=== PATIENT | female | born 1985 | race Caucasian/White ===

== ENCOUNTER 2019-07-01 15:24 | Outpatient (REF) | payer BC, SELFPAY | END 2019-07-01 15:44 | LOC: NCHCN 15:24 | PROVIDERS: PCP Nurse Practitioner Family; Visit Provider Nurse Practitioner Family | DX: N89.8 Other specified noninflammatory disorders of vagina (principal) | CPT/HCPCS: 87491; 87591; 87480; 87510; 87660 ==

== ENCOUNTER 2019-07-02 11:18 | Outpatient (REF) | payer BC, SELFPAY ==
[2019-07-02 20:24] LABS: Abs Immature Grans 0.01 k/cumm (0.0-0.09); Absolute Basophil Count 0.01 k/cumm (0.0-0.2); Absolute Eosinophil Count 0.07 k/cumm (0.0-0.7); Absolute Lymphocyte Count 2.12 k/cumm (1.2-3.4); Absolute Monocyte Count 0.36 k/cumm (0.11-0.7); Absolute Neutrophil Count 3.07 k/cumm (1.2-6.7); Basophils % 0.2; Eosinophils % 1.2; HCT 36.4 % (36.0-46.0); HGB 11.8 g/dL (12.0-15.5); Immature Grans % 0.2 %; Lymphocytes % 37.6; Mean Corp. HGB Concentration 32.4 g/dL (32.0-36.0); Mean Corpuscular Hemoglobin 26.5 pg (27.0-33.0); Mean Corpuscular Volume 81.6 fL (80-95); Mean Platelet Volume 10.5 fL (8.0-11.0); Monocytes % 6.4; Neutrophils % 54.4; Platelet Count 249 x1000/uL (130-400); RBC 4.46 m/cumm (4.00-5.20); RBC Distribution Width 13.6 % (11.7-14.6); White Blood Cell Count 5.64 k/cumm (4.4-10.8)
[2019-07-02 20:45] LABS: Anion Gap 8.7 mmol/L (3-11); BUN 7 mg/dL (7-18); CO2 29.3 mmol/L (21.0-32.0); CREATININE 0.55 mg/dL (0.55-1.02); Calcium 9.4 mg/dL (8.5-10.1); Chloride 104 mmol/L (98-107); Glucose 104 mg/dL (74-106); Sodium 142 mmol/L (136-145)
== END 2019-07-02 11:38 ==
LOC: NCHCN 11:18
PROVIDERS: PCP Nurse Practitioner Family; Visit Provider Nurse Practitioner Family
DX: N89.8 Other specified noninflammatory disorders of vagina (principal); R10.2 Pelvic and perineal pain
CPT/HCPCS: 80048; 85025

== ENCOUNTER 2019-07-04 19:13 | Emergency (ER) | payer BC, SELFPAY ==
[2019-07-04 19:15] VITALS: BP 160/69; PULSE 99; RESP 18; TEMP 37; O2SAT 99
--- NOTE | 2019-07-04 19:29 | ED.GENADUL_ITS ---
Discharge Plan Disposition Patient Disposition: HOME Condition: Good Discharge Details Chief Complaint: Nausea/Vomit/Diar Clinical Impression: Colitis Primary Care Provider: Verona Colindres ED Provider: Rolando Mascorro Home Meds and New Rx's Prescriptions: New ciprofloxacin HCl 500 mg tablet 500 mg PO BID 10 Days Qty: 20 RF: 0 metronidazole [Flagyl] 500 mg tablet 500 mg PO TID 10 Days Qty: 30 RF: 0 No Action fluticasone propionate [Flonase Allergy Relief] 50 mcg/actuation [place],Suspension 2 spray INTRANASAL PRN PRNRF: 0 Discharge Instructions Instructions: Colitis (ED) Additional Instructions: Your CT scan shows evidence of mild colitis which is likely a bacterial infe ction of your colon. Please take the antibiotic as directed. Please stick with an easy diet of applesauce, rice, bananas and oatmeal. Do not drink any alcohol while taking the antibiotic as this can cause a significant adverse reaction. Please take Tylenol up to 1000 mg 4 times a day as needed for pain. If you notice any worsening of your symptoms, or any new symptoms such as vomiting, diarrhea, fever, chills, shortness of breath, chest pain, numbness, weakness, or fainting , please return immediately to the emergency department for reevaluation. Please follow up with your primary care provider as soon as possible for reassessment and reevaluation. As always, it was a pleasure participating in your medical care today. Referrals: Verona Colindres [Primary Care Provider] - Medical Decision Making 34-year-old female no significant past medical history who presents today for evaluation of left lower quadrant pain for the last week, decreased bowel movements for the last 4 days aside for small amount of loose watery stool. Pain seems to be worsened with food. She does have some nausea but no vomiting. She denies fever or chills. No dysuria. No vaginal discharge. She did have a vaginal eval at her PCPs office the results of which were unremarkable with a negative bacterial vaginosis, trichomoniasis, and Izabella series. It appears that gonorrhea and chlamydia or canceled secondary to the improper specimen medium however I did discuss with the patient repeat testing and she states that she would like to hold off on this for now. Physical exam demonstrates minimal reproducible left lower quadrant tenderness, no guarding or rebound whatsoever. No right lower quadrant tenderness. No stool in the rectal vault. Differential includes higher constipation, diverticulitis, mild colitis. Discussed risks and benefits of imaging. We will get a CT scan for further assessment, labs, gently rehydrate and reassess. 8:44 PM Laboratory work-up is returned and is relatively unremarkable. No significant white count, potassium slightly low at 3.3. Lipase normal, urinalysis negative for infection. CT scan results per virtual radiology does show evidence of mild colitis in the sigmoid colon and rectum. No evidence of perforation or other abnormality. No gross blood on exam or on rectal exam. Will treat for bacterial colitis and give Cipro and Flagyl. We will correct potassium. Patient is able to tolerate p.o. and otherwise appears notably stable. Patient will be discharged home with close follow-up. Patient has no significant pain at this time. I have extensively reviewed the treatment plan and discharge instructions with the patient. I have addressed all patient concerns at this time. The patient was made aware of what symptoms to monitor for that would warrant a return to the emergency department. Discussed the plan with the patient, they demonstrate verbal understanding and agreement with our assessment and plan at this time. FINDINGS: Liver: Normal. No mass. Gallbladder and bile ducts: Normal. No calcified stones. No ductal dilation. Pancreas: Normal. No ductal dilation. Spleen: Normal. No splenomegaly. Adrenals: Normal. No mass. Kidneys and ureters: Normal. No hydronephrosis. Stomach and bowel: Thickening of the rivera of the sigmoid colon and rectum, which contain air-fluid levels, most likely representing colitis. No pneumatosis. No associated abscess. Appendix: A normal appendix is identified. Intraperitoneal space: No free air. Vasculature: Unremarkable. No abdominal aortic aneurysm. Lymph nodes: Unremarkable. No enlarged lymph nodes. Bladder: Unremarkable as visualized. Reproductive: Left ovarian corpus luteal cyst. Bones/joints: Unremarkable. No acute fracture. Soft tissues: Unremarkable. IMPRESSION: Thickening of the rivera of the sigmoid colon and rectum, which contain air-fluid levels, most likely representing colitis. No pneumatosis. No associated abscess. No free air. Thank you for allowing us to participate in the care of your patient. Dictated and Authenticated by: Quinton Case MD 07/04/2019 8:41 PM Eastern Time ([place] & [place]) HPI General Date/Time Provider Initiated Documentation: 07/04/19 19:15 . HPI Narrative: This is a pleasant 34-year-old female with no significant past medical history who presents today for evaluation of left lower quadrant abdominal pain. Patient states that for the last week she has had mild left lower quadrant abdominal pain. She was initially seen by her PCP, vaginal exam was performed studies were performed on this and this was unremarkable. Her pain is persisted, she has notable associated nausea. There does not seem to be any particular aggravating or relieving factor except for eating. She states that she has had no significant bowel movements over the last 4 days however she has had small amounts of stool leaking over the past 4 days. She denies any recent antibiotic use or foreign travel. She denies any vomiting, fever or chills. She denies any vaginal discharge or vaginal complaints. She denies any dysuria or hematuria. She has no other complaints at this time. No other modifying factors. No pain in the right lower quadrant, no flank pain. Related Data Home Medications Medication Instructions Recorded Confirmed ciprofloxacin HCl 500 mg PO BID 10 Days #20 tab 07/04/19 fluticasone propionate [Flonase 2 spray INTRANASAL PRN PRN 07/04/19 07/04/19 Allergy Relief] metronidazole [Flagyl] 500 mg PO TID 10 Days #30 tab 07/04/19 Previous Rx's Medication Instructions Recorded ciprofloxacin HCl 500 mg PO BID 10 Days #20 tab 07/04/19 metronidazole [Flagyl] 500 mg PO TID 10 Days #30 tab 07/04/19 Allergies Allergy/AdvReac Type Severity Reaction Status Date / Time No Known Allergies Allergy Unverified 07/04/19 19:24 General Stated Complaint: Nausea/Vomit/Diar TATYANA: 4 Review of Systems All systems reviewed & are unremarkable except as noted in HPI and below [facility] Medical History (Updated 07/04/19 @ 19:25 by Talya Bertrand) Seasonal allergic rhinitis due to pollen (Acute) Seasonal allergies (Acute) Social History Smoking/Tobacco Use Status: Never Alcohol Intake: current Alcohol Intake frequency: holidays/special occasions only Drug use: Never Do you feel safe at home: Yes Do you feel safe in your relationship?: Yes Exam Narrative Exam Narrative: 1.Const: Well-nourished, Well-developed, appearing stated age 2.Eyes: PERRL, no conjunctival injection, and symmetrical lids. 3.ENT: Atraumatic external nose and ears. Moist MM. Neck: Symmetric, trachea midline, No thyromegaly. 4.CVS: +S1/S2, No murmurs or gallops. Peripheral pulses 2+ and equal in all extremities. Brisk capillary refill in all extremities. 5.RESP: Unlabored respiratory effort. Clear to auscultation bilaterally. No wh eezes rales or rhonchi 6.GI: Soft, Nondistended, No hepatosplenomegaly. No guarding or rebound. Mild left lower quadrant abdominal pain. Negative Rovsing sign, no pain at McBurney's point. No flank or CVA tenderness. Minimal pain on deep palpation of the left lower quadrant. No suprapubic tenderness. Rectal exam was performed with female nurse at bedside, no evidence of stool ball in the rectal vault. Rectal vault does appear to be vacant. 7.MSK: Normocephalic/Atraumatic, Extremities w/o deformity or ttp No cyanosis or clubbing, Normal movement of all extremities 8.Skin: Warm, Dry. No rashes or lesions. 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 Sensation grossly intact, no focal neurologic deficits. 10.Psych: (AAO) x3. Appropriate mood and affect Course Vital Signs Vital signs: Vital Signs Temperature 37.0 C 07/04/19 19:15 Pulse 99 H 07/04/19 19:15 Respiratory Rate 18 07/04/19 19:15 Blood Pressure 160/69 H 07/04/19 19:15 Pulse Oximetry 99 07/04/19 19:15 Temperature 37.0 C 07/04/19 19:15 Pulse 99 H 07/04/19 19:15 Respiratory Rate 18 07/04/19 19:15 Respiratory Effort Non-Labored 07/04/19 19:26 Blood Pressure 160/69 H 07/04/19 19:15 Pulse Oximetry 99 07/04/19 19:15 Pain Level 3 07/04/19 19:15
[2019-07-04 19:39] LABS: Abs Immature Grans 0.02 k/cumm (0.0-0.09); Absolute Basophil Count 0.02 k/cumm (0.0-0.2); Absolute Eosinophil Count 0.11 k/cumm (0.0-0.7); Absolute Lymphocyte Count 2.64 k/cumm (1.2-3.4); Absolute Monocyte Count 0.58 k/cumm (0.11-0.7); Absolute Neutrophil Count 4.53 k/cumm (1.2-6.7); Basophils % 0.3; Eosinophils % 1.4; HCT 37.9 % (36.0-46.0); HGB 12.6 g/dL (12.0-15.5); Immature Grans % 0.3 %; Lymphocytes % 33.4; Mean Corp. HGB Concentration 33.2 g/dL (32.0-36.0); Mean Corpuscular Hemoglobin 26.7 pg (27.0-33.0); Mean Corpuscular Volume 80.3 fL (80-95); Mean Platelet Volume 10.4 fL (8.0-11.0); Monocytes % 7.3; Neutrophils % 57.3; Platelet Count 173 x1000/uL (130-400); RBC 4.72 m/cumm (4.00-5.20); RBC Distribution Width 13.6 % (11.7-14.6)
[2019-07-04 19:45] LABS: Bilirubin Negative (Negative); Blood Negative (Negative); Clarity Clear (Clear); Glucose Negative (Negative); Ketones Negative (Negative); Leukocyte Esterase Negative (Negative); Nitrite Negative (Negative); Specific Gravity >= 1.030 (1.005-1.025); Urobilinogen 0.2 EU/dL (Up TO 0.2); pH 5.5 (5-8)
--- NOTE | 2019-07-04 20:09 | DI.CT_ITS ---
EXAM: CT ABDOMEN PELVIS W CLINICAL HISTORY: LLQ abdominal pain, diarrhea. TECHNIQUE: Imaging Protocol: Axial computed tomography images with coronal and sagittal reformatted images were created and reviewed CONTRAST MATERIAL: Intravenous: Omnipaque 350 Contrast volume:100 mL Oral: No COMPARISON: No exams were available for comparison FINDINGS: ABDOMEN: Lung Bases: Normal where visualized. Liver: Normal density. No measurable mass. Gallbladder and biliary tract: No radiodense calculus or dilation. Pancreas: Normal density, no abnormal calcifications or inflammatory process. Spleen: Normal. Kidneys: Normal size, contour and axis. No radiodense stones or obstructive uropathy. No masses seen. Incidental note is made of a circumaortic left renal vein. Adrenal glands: No masses seen. Abdominal Aorta: Abdominal portion non-dilated. PELVIS: Bladder: Symmetric distention, no gross wall thickening. Bowel: There is mild thickening of the wall of the rectum. No definite perirectal inflammatory calderon es seen. There is no evidence of bowel obstruction. There is a normal appendix present. There is a small oval pericolonic fatty nodule with surrounding inflammation adjacent to the proximal sigmoid c olon. The finding is most consistent with epiploic appendagitis. Peritoneal cavity: No ascites, collection or mesenteric inflammatory response. Bones: Within normal limits. Reproductive organs: There is a 2 centimeter follicle on the left ovary. The reproductive organs are otherwise unremarkable. Lymph nodes: Unremarkable. Impression: 1. Inflammatory fatty nodule adjacent to the proximal sigmoid colon most consistent with epiploic kylee endagitis. 2. Thickening of the wall of the rectum. Inflammation/infection cannot be excluded. 3. No abscess or free air. DATA REPOSITORY: All CT scans at this facility are submitted to the National Radiology Data Registry (NRDR) Dose Index Registry (DIR) with the [employer] (A[employer]). RADIATION OPTIMIZATION: All CT scans at this facility use at least one of these dose optimization te chniques: automated exposure control; mA and/or kV adjustment per patient size (includes targeted exa ms where dose is matched to clinical indication); or iterative reconstruction.
[2019-07-04] MEDS: Omnipaque 350 MG/ML 100 ML BTL IJ (20:11)
[2019-07-04 20:12] LABS: ALT 24 U/L (14-59); AST 20 U/L (15-37); Albumin 3.7 g/dL (3.4-5.0); Alkaline Phosphatase 79 U/L (46-116); Anion Gap 9.9 mmol/L (3-11); BUN 12 mg/dL (7-18); Bilirubin, Total 0.2 mg/dL (0.2-1.0); CO2 28.1 mmol/L (21.0-32.0); Calcium 9.7 mg/dL (8.5-10.1); Chloride 103 mmol/L (98-107); Glucose 95 mg/dL (74-106); Lipase 171 U/L (73-393); Potassium 3.3 mmol/L (3.5-5.1); Sodium 141 mmol/L (136-145); Total Protein 7.6 g/dL (6.4-8.2)
[2019-07-04] MEDS: Normal Saline 1,000 ML 1000 ML IV (20:14)
--- NOTE | 2019-07-04 20:41 | DI.VRAD_ITS ---
PROCEDURE INFORMATION: Exam: CT Abdomen And Pelvis With Contrast Exam date and time: 07/04/2019 8:06 PM Age: 34 years old Clinical indication: Abdominal pain; Localized; Left lower quadrant (llq); Patient HX: Llq pain, constipation, diarrhea, and discomfort for a week TECHNIQUE: Imaging protocol: Computed tomography of the abdomen and pelvis with intravenous contrast. Radiation optimization: All CT scans at this facility use at least one of these dose optimization techniques: automated exposure control; mA and/or kV adjustment per patient size (includes targeted exams where dose is matched to clinical indication); or iterative reconstruction. Contrast material: OMNIPAQUE 350; Contrast volume: 100 ml; Contrast route: IV RAC; COMPARISON: No relevant prior studies available. FINDINGS: Liver: Normal. No mass. Gallbladder and bile ducts: Normal. No calcified stones. No ductal dilation. Pancreas: Normal. No ductal dilation. Spleen: Normal. No splenomegaly. Adrenals: Normal. No mass. Kidneys and ureters: Normal. No hydronephrosis. Stomach and bowel: Thickening of the rivera of the sigmoid colon and rectum, which contain air-fluid levels, most likely representing colitis. No pneumatosis. No associated abscess. Appendix: A normal appendix is identified. Intraperitoneal space: No free air. Vasculature: Unremarkable. No abdominal aortic aneurysm. Lymph nodes: Unremarkable. No enlarged lymph nodes. Bladder: Unremarkable as visualized. Reproductive: Left ovarian corpus luteal cyst. Bones/joints: Unremarkable. No acute fracture. Soft tissues: Unremarkable. IMPRESSION: Thickening of the rivera of the sigmoid colon and rectum, which contain air-fluid levels, most likely representing colitis. No pneumatosis. No associated abscess. No free air. Dictated and Authenticated by: Quinton Case MD. Ordering:MANA Marshall MD
[2019-07-04] MEDS: Ciprofloxacin 500 MG TAB PO (20:57)
[2019-07-04] MEDS: metroNIDAZOLE 500 MG TAB PO (20:57)
[2019-07-04] MEDS: Potassium Chloride 20 MEQ TABCR 40 MEQ PO (20:57)
[2019-07-04 21:02] VITALS: BP 132/87; PULSE 82; RESP 16; O2SAT 100
== END 2019-07-04 20:10 | disposition home or self-care (01) ==
PROVIDERS: Emergency Provider Student in an Organized Health Care Education/Training Program; PCP Nurse Practitioner Family
DX: K52.9 Noninfective gastroenteritis and colitis, unspecified (principal); R11.0 Nausea; R79.9 Abnormal finding of blood chemistry, unspecified
CPT/HCPCS: 36415; 80053; 81025; 83690; 96360; 99285; 74177; 81003; 85025; 99284; J3490

== ENCOUNTER 2019-07-06 14:15 | Outpatient (REF) | payer BC, SELFPAY ==
[2019-07-09 07:56] LABS: Chlamydia Result Negative (Negative); GC Result Negative (Negative)
== END 2019-07-06 14:35 ==
LOC: NCHCN 14:15
PROVIDERS: PCP Nurse Practitioner Family; Visit Provider Nurse Practitioner Family
DX: N89.8 Other specified noninflammatory disorders of vagina (principal); Z11.3 Encounter for screening for infections with a predominantly sexual mode of transmission
CPT/HCPCS: 87491; 87591

== ENCOUNTER 2020-02-24 08:47 | Observation (INO) | payer MEDICAID, SELFPAY ==
[2020-02-24] VITALS (54 sets, daily range): BP systolic 92–160; BP diastolic 61–107; PULSE 78–133; RESP 11–24; TEMP 36.3–37.7; O2SAT 94–100
[2020-02-24] MEDS: Ondansetron 4 MG/2 ML VIAL IVP ×2 (09:15→21:36)
[2020-02-24] MEDS: Normal Saline 1,000 ML 1000 ML IV ×2 (09:15→13:46)
[2020-02-24 09:33] LABS: Abs Immature Grans 0.03 10^3/uL (0.0-0.06); Absolute Basophil Count 0.02 10^3/uL (0.0-0.2); Absolute Eosinophil Count 0.08 10^3/uL (0.0-0.7); Absolute Lymphocyte Count 2.15 10^3/uL (1.2-3.4); Absolute Monocyte Count 0.28 10^3/uL (0.1-0.8); Absolute Neutrophil Count 3.05 10^3/uL (1.2-6.7); Basophils % 0.4; Eosinophils % 1.4; HCT 38.7 % (36.0-46.0); HGB 12.8 g/dL (11.2-15.7); Immature Grans % 0.5; Lymphocytes % 38.3; MCH 26.8 pg (27.0-33.0); MCHC 33.1 % (32.0-36.0); MCV 81.1 fL (80-95); Neutrophils % 54.4; Nucleated RBC 0 %; Platelet Count 256 10^3/uL (130-400); RBC 4.77 10^6/uL (3.93-5.22); RDW 13.5 % (11.7-14.6); RDW-SD 39.7 fL; WBC 5.61 10^3/uL (4.4-10.8)
[2020-02-24 09:37] LABS: INR 0.9 (0.9-1.1); Prothrombin Time 9.4 sec (9.3-11.0)
--- NOTE | 2020-02-24 09:41 | ED.GENADUL_ITS ---
Discharge Plan Disposition Condition: Good Discharge Details Chief Complaint: Abd Prob Admit Date/Time: 02/24/20 14:26 Admit Provider: Alex Hernandez Attending Provider: Alex Hernandez Primary Care Provider: Verona Colindres ED Provider: Dionne Hazel Discharge Instructions Activity:: Activity as Tolerated Equipment/Supplies:: No Equipment Needed Diet:: As Tolerated Discharge Orders Discharge Orders: Discharge Order (Routine); Ordered 02/25/20 Ordered By: Alex Hernandez Discharge Data Discharge Date/Time-TO BE ENTERED AT DEPARTURE: 02/24/20 15:18 Medical Decision Making Melissa Carter is a 34-year-old woman without reported history of major medical problems presenting to the emergency department with lower abdominal pain over the past 2 weeks, acutely worse today. On exam patient appears uncomfortable but is nontoxic appearing. Benign cardiopulmonary exam. Peritoneal abdomen with guarding, worse tenderness suprapubically and in the right lower quadrant. Differential diagnosis includes but is not limited to ectopic , appendicitis, ovarian torsion, ureterolithiasis, UTI, PID. Exam/history is not consistent with sepsis, acute aortic pathology, acute cardiac pathology. Bedside FAST performed, question of free fluid at the liver tip, fast otherwise negative. Gynecological structures not well visualized. Given potentially positive fast, school bus aide consulted emergently. Patient with increasing pain, heart rate in 50s, systolic blood pressure 98, patient mildly d iaphoretic. Dr. Hernandez of OB at bedside with patient. Patient unable to urinate, straight cath performed with urine preg negative. Plan for CT abdomen/pelvis, awaiting screening labs. Dr. Hernandez recommends pelvic ultrasound if CT abdomen/pelvis negative. Patient with systolic blood pressure 114, heart rate 90s prior to CT. Possible vagal episode secondary to pain. We will continue to monitor on telemetry. CT negative, labs reviewed, nondiagnostic. Plan for ultrasound. Patient reports that she feels improved. Vital signs remain hemodynamically stable. US reported as negative, left ovary not well visualized, not able to use doppler. Discussed results with patient. Patient consented for pelvic exam for further evaluation. Ariana of nursing present during pelvic exam. Normal examination of the labia. Speculum exam reveals moderate amount of thick white discharge intermittently about the vaginal rivera, copious thin, clear yellow discharge from the cervix. Cervix friable. Significant pain with suprapubic palpation during manual exam, no adnexal tenderness or fullness bilaterally, no CMT. Vaginal path and chlamydia/gonorrhea sent. Unclear etiology of pain at this point. Patient continues to report significant discomfort. Concern for cervicitis versus interstitial cystitis versus other. Doubt PID given lack of CMT. I discussed with patient results, pelvic exam with Dr. Hernandez of gynecology, who reassessed the patient at bedside. Dr. Hernandez states he suspects etiology of pain hemorrhagic left ovarian cyst that he visualized on CT, recommends pain control, discharged home at this time with outpatient follow-up with their office tomorrow. When patient went to stand she reported feeling significantly lightheaded as if she would faint. Orthostatics performed, patient tachycardic 130 while standing. Blood pressure currently 98 systolic lying down. Patient reports that she has been feeling very lightheaded whenever she tries to stand since her arrival in the ER, and noticed feeling this about an hour prior to presenting. Unclear etiology of borderline hypotension and tachycardia, lightheadedness while standing at this point. Patient reporting that she only has abdominal pain when she moves, and is pain-free while resting in the stretcher. I discussed possibility of possible cervicitis/PID with the patient given localization of her pain and significant amount of discharge with patient. I discussed that pelvic infection is equivocal at this time given that she has not noticed any change in her usual vaginal discharge, no fever, no WBC, apparent sexual monogamy. Patient is agreeable to empiric antibiotics at this time. Plan for second liter IV fluid bolus, repeat H&H (though no apparent bleeding on CT or ultrasound), lactate, d-dimer, and EKG. Exam/history at this time is not consistent with acute coronary syndrome, acute aortic pathology. Will continue to monitor on telemetry. D-dimer negative, WBC increased from 5 to 11, hemoglobin now 11.4 (likely significant delutional component), d-dimer negative, lactate 1.4, EKG nondiagnostic. Patient reports that she only has significant pain with movement, however she is having some return of pressure-like sensation in her suprapubic area. Patient requests no opiates at this time made her feel overall unwell. Plan for Toradol. I discussed patient's current status and results with Dr. Hernandez of gynecology who will admit. Clinical Impression: Abdominal pain, orthostatic tachycardia Disposition: [facility] inpatient Medical Records Medical records reviewed: Yes I reviewed the patient's medical records. Imaging Data Radiologic Study: Attestation: I personally reviewed and interpreted this imaging study as follows: Radiologist's impression: Exam(s) a CT:CT abdomen & pelvis w EXAM: CT ABDOMEN PELVIS W CLINICAL HISTORY: qlower abdominal pain, worse on the right TECHNIQUE: Imaging Protocol: Axial computed tomography images with coronal and sagittal reformatted images were created and reviewed CONTRAST MATERIAL: Intravenous: Omnipaque 350 Contrast volume:100 mL Oral: No COMPARISON: CT CT ABDOMEN PELVIS W from 07/04/2019 FINDINGS: ABDOMEN: Lung Bases: Normal where visualized. Liver: Normal density. No measurable mass. 19 cm in length. Portal, Superior Mesenteric, and Splenic Veins: Unremarkable. Gallbladder and Biliary Tract: No radiodense calculus or dilation. Pancreas: Normal density, no abnormal calcifications or inflammatory process. Spleen: Normal. Adrenals: No masses seen. Kidneys: Normal size, contour and axis. No radiodense stones or obstructive uropathy. No masses seen. Abdominal Aorta: Abdominal portion non-dilated. Bowel: No obstruction or bowel wall thickening. Appendix is unremarkable. Peritoneal Cavity: No focal fluid collection or mesenteric inflammatory response. Trace amount of free fluid in the pelvis. Lymph Nodes: Within normal limits. Bones: Mild degenerative changes. Soft Tissues: Small fat containing umbilical hernia. PELVIS: Bladder: Symmetric distention, no gross wall thickening. Reproductive Organs: Unremarkable as visualized. Lymph Nodes: Within normal limits. Bones: Mild degenerative changes. IMPRESSION: No acute abdominal or pelvic process. Exam(s) a US:US pelvis & transvaginal EXAM: US PELVIS TRANSVAGINAL CLINICAL HISTORY: lower abdominal pain. TECHNIQUE: Transabdominal and transvaginal pelvic ultrasound was performed using standard protocol. COMPARISON: US OB US 2-3 TRIMESTER TRANSABD*P from 10/06/2012 FINDINGS: UTERUS: Position: Anteverted. Size: 10.7 long by 4.7 AP by 5.5 transverse cm Endometrium: 0.6 cm. Normal for patient's menstrual status. Myometrium: Unremarkable. Cervix: Unremarkable. OVARIES: The ovaries were best appreciated transabdominally. The left ovary was not seen transvaginally. Right: 3.4 x 1.4 x 1.6 cm Cyst or mass: None. Left: 3.3 x 2.7 x 2.0 cm Cyst or mass: None. DOPPLER: Color: Flow seen to the right ovary. No hyperemia. Evaluation was difficult due to the patient's body habitus. Blood flow to the left ovary could not be obtained. Duplex: Normal ovarian arterial waveforms visualized in the right ovary. CUL-DE-SAC: Free fluid: None. Other: None. IMPRESSION: 1. Normal-appearing uterus with endometrial stripe within normal limits. 2. Technically limited examination of the adnexa and ovaries. Lab Data Lab results reviewed: Yes I reviewed the patient's lab results. Labs: 02/24/20 12:20 Vaginal Vaginitis Screen - Final Laboratory Tests Range/Units 02/24/20 02/24/20 02/24/20 08:55 08:55 08:55 WBC (4.4-10.8) 10^3/uL 5.61 RBC (3.93-5.22) 10^6/uL 4.77 Hgb (11.2-15.7) g/dL 12.8 Hct (36.0-46.0) % 38.7 MCV (80-95) fL 81.1 MCH (27.0-33.0) pg 26.8 L MCHC (32.0-36.0) % 33.1 RDW (11.7-14.6) % 13.5 Plt Count (130-400) 10^3/uL 256 MPV (8.0-11.0) fL 10.0 Immature Gran % 0.5 Neutrophils % 54.4 Lymphocytes % 38.3 Monocytes % 5.0 Eosinophils % 1.4 Basophils % 0.4 Nucleated RBC % % 0 Absolute Neutrophils (1.2-6.7) 10^3/uL 3.05 Absolute Lymphocytes (1.2-3.4) 10^3/uL 2.15 Absolute Monocytes (0.1-0.8) 10^3/uL 0.28 Absolute Eosinophils (0.0-0.7) 10^3/uL 0.08 Absolute Basophils (0.0-0.2) 10^3/uL 0.02 PT (9.3-11.0) sec 9.4 INR (0.9-1.1) 0.9 D-Dimer (<500) ng/mlFEU VBG Lactate (0.6-1.4) mmol/L Sodium (136-145) mmol/L 141 Potassium (3.5-5.1) mmol/L 3.9 Chloride (98-107) mmol/L 104 Carbon Dioxide (21.0-32.0) mmol/L 28.3 Anion Gap (3-11) mmol/L 8.7 BUN (7-18) mg/dL 9 Creatinine (0.55-1.02) mg/dL 0.76 Estimated GFR/1.73 m2 (mL/min/1.73m2) >= 60.00 Glucose (74-106) mg/dL 112 H Calcium (8.5-10.1) mg/dL 9.3 Magnesium (1.8-2.4) mg/dL 1.8 Total Bilirubin (0.2-1.0) mg/dL 0.4 AST (15-37) U/L 29 ALT (14-59) U/L 43 Alkaline Phosphatase (46-116) U/L 80 Total Protein (6.4-8.2) g/dL 8.2 Albumin (3.4-5.0) g/dL 4.0 Lipase (73-393) U/L 134 Beta HCG, Quant (1-3) mIU/mL < 1 L Urine Color (Yellow) Urine Clarity (Clear) Urine pH (5-8) Ur Specific [place] (1.005-1.025) Urine Protein (Negative) mg/dL Urine Ketones (Negative) mg/dL Urine Blood (Negative) Urine Nitrite (Negative) Urine Bilirubin (Negative) Urine Urobilinogen (Up TO 0.2) EU/dL Ur Leukocyte Esterase (Negative) Urine Glucose (Negative) mg/dL Patient ABO/Rh Antibody Screen Range/Units 02/24/20 02/24/20 02/24/20 09:25 09:35 13:20 WBC (4.4-10.8) 10^3/uL RBC (3.93-5.22) 10^6/uL Hgb (11.2-15.7) g/dL Hct (36.0-46.0) % MCV (80-95) fL MCH (27.0-33.0) pg MCHC (32.0-36.0) % RDW (11.7-14.6) % Plt Count (130-400) 10^3/uL MPV (8.0-11.0) fL Immature Gran % Neutrophils % Lymphocytes % Monocytes % Eosinophils % Basophils % Nucleated RBC % % Absolute Neutrophils (1.2-6.7) 10^3/uL Absolute Lymphocytes (1.2-3.4) 10^3/uL Absolute Monocytes (0.1-0.8) 10^3/uL Absolute Eosinophils (0.0-0.7) 10^3/uL Absolute Basophils (0.0-0.2) 10^3/uL PT (9.3-11.0) sec INR (0.9-1.1) D-Dimer (<500) ng/mlFEU VBG Lactate (0.6-1.4) mmol/L 1.4 Sodium (136-145) mmol/L Potassium (3.5-5.1) mmol/L Chloride (98-107) mmol/L Carbon Dioxide (21.0-32.0) mmol/L Anion Gap (3-11) mmol/L BUN (7-18) mg/dL Creatinine (0.55-1.02) mg/dL Estimated GFR/1.73 m2 (mL/min/1.73m2) Glucose (74-106) mg/dL Calcium (8.5-10.1) mg/dL Magnesium (1.8-2.4) mg/dL Total Bilirubin (0.2-1.0) mg/dL AST (15-37) U/L ALT (14-59) U/L Alkaline Phosphatase (46-116) U/L Total Protein (6.4-8.2) g/dL Albumin (3.4-5.0) g/dL Lipase (73-393) U/L Beta HCG, Quant (1-3) mIU/mL Urine Color (Yellow) Yellow Urine Clarity (Clear) Clear Urine pH (5-8) 7.5 Ur Specific [place] (1.005-1.025) 1.025 Urine Protein (Negative) mg/dL Negative Urine Ketones (Negative) mg/dL Negative Urine Blood (Negative) Negative Urine Nitrite (Negative) Negative Urine Bilirubin (Negative) Negative Urine Urobilinogen (Up TO 0.2) EU/dL 0.2 Ur Leukocyte Esterase (Negative) Negative Urine Glucose (Negative) mg/dL Negative Patient ABO/Rh A Positive Antibody Screen Negative Range/Units 02/24/20 02/24/20 13:20 13:20 WBC (4.4-10.8) 10^3/uL 11.63 H D RBC (3.93-5.22) 10^6/uL 4.18 Hgb (11.2-15.7) g/dL 11.2 Hct (36.0-46.0) % 34.3 L MCV (80-95) fL 82.1 MCH (27.0-33.0) pg 26.8 L MCHC (32.0-36.0) % 32.7 RDW (11.7-14.6) % 13.7 Plt Count (130-400) 10^3/uL 210 MPV (8.0-11.0) fL 9.8 Immature Gran % Neutrophils % Lymphocytes % Monocytes % Eosinophils % Basophils % Nucleated RBC % % Absolute Neutrophils (1.2-6.7) 10^3/uL Absolute Lymphocytes (1.2-3.4) 10^3/uL Absolute Monocytes (0.1-0.8) 10^3/uL Absolute Eosinophils (0.0-0.7) 10^3/uL Absolute Basophils (0.0-0.2) 10^3/uL PT (9.3-11.0) sec INR (0.9-1.1) D-Dimer (<500) ng/mlFEU 384 VBG Lactate (0.6-1.4) mmol/L Sodium (136-145) mmol/L Potassium (3.5-5.1) mmol/L Chloride (98-107) mmol/L Carbon Dioxide (21.0-32.0) mmol/L Anion Gap (3-11) mmol/L BUN (7-18) mg/dL Creatinine (0.55-1.02) mg/dL Estimated GFR/1.73 m2 (mL/min/1.73m2) Glucose (74-106) mg/dL Calcium (8.5-10.1) mg/dL Magnesium (1.8-2.4) mg/dL Total Bilirubin (0.2-1.0) mg/dL AST (15-37) U/L ALT (14-59) U/L Alkaline Phosphatase (46-116) U/L Total Protein (6.4-8.2) g/dL Albumin (3.4-5.0) g/dL Lipase (73-393) U/L Beta HCG, Quant (1-3) mIU/mL Urine Color (Yellow) Urine Clarity (Clear) Urine pH (5-8) Ur Specific [place] (1.005-1.025) Urine Protein (Negative) mg/dL Urine Ketones (Negative) mg/dL Urine Blood (Negative) Urine Nitrite (Negative) Urine Bilirubin (Negative) Urine Urobilinogen (Up TO 0.2) EU/dL Ur Leukocyte Esterase (Negative) Urine Glucose (Negative) mg/dL Patient ABO/Rh Antibody Screen ECG Data Attestation: I personally reviewed and interpreted this ECG (s) as follows: Interpretation: EKG shows sinus rhythm at 89, normal axis, no acute ischemic c hanges, nondiagnostic EKG HPI General Mode of arrival: ambulatory . Date/Time Provider Initiated Documentation: 02/24/20 08:48 . Limitations to Documentation: no limitations . Information obtained by: patient, RN notes reviewed and old records reviewed . HPI Narrative: Melissa Carter is a 33-year-old woman without reported history of major medical problems presenting to the emergency department with abdominal pain. Patient reports that she was seen here in June, diagnosed with colitis on CT scan. Patient reports that pain improved approximately a week after being seen from that episode, but then 2 to 3 weeks ago she developed similar abdominal pain, pressure sensation in her lower abdomen worse in the right lower quadrant. Patient was concerned that the colitis was perhaps returning. Patient reports that she woke up this morning with the same pain, had a bowel movement, and then had significant worsening of the pain. Patient reports that she went to eat and again had significant worsening. Patient reports that pain was severe and not like abdominal pain she has had in the past. Patient reports that pain has been coming in waves, feels like pressure, and is worse across the lower abdomen and in the right lower quadrant. Patient reports that she was last sexually active sometime in the month of December, her last menstrual period ended 3 days ago and was heavy but otherwise normal. Patient reports that she is sexually active only with her . She denies vaginal discharge. She denies any other pain, fevers, shortness of breath, cough, vomiting, diarrhea, constipation, numbness, weakness, rash. She does report mild nausea this morning. Related Data Home Medications Medication Instructions Recorded Confirmed fluticasone propionate [Flonase 2 spray INTRANASAL PRN PRN 07/04/19 02/24/20 Allergy Relief] oxycodone-acetaminophen [Percocet] 1 tab PO Q6H PRN #20 tab 02/25/20 Previous Rx's Medication Instructions Recorded oxycodone-acetaminophen [Percocet] 1 tab PO Q6H PRN #20 tab 02/25/20 Allergies Allergy/AdvReac Type Severity Reaction Status Date / Time No Known Allergies Allergy Unverified 02/24/20 08:56 General Stated Complaint: Abd Prob TATYANA: 3 Review of Systems Narrative: Constitutional: denies fevers Eyes: denies eye pain ENT: denies ear pain, dental pain, sore throat Cardiovascular: denies chest pain Respiratory: denies SOB, cough GI: denies vomiting, diarrhea, reports abdominal pain, nausea : denies flank pain, dysuria, abnormal vaginal bleeding, abnormal vaginal discharge MSK: denies back pain, neck pain, arthralgias, myalgias Skin: denies rash Neuro: denies headaches, numbness, weakness [facility] Medical History Seasonal allergic rhinitis due to pollen (Acute) Seasonal allergies (Acute) Social History Smoking/Tobacco Use Status: Never Alcohol Intake: current Alcohol Intake frequency: holidays/special occasions only Drug use: Never Substance use type: does not use Current gender identity: female Do you feel safe at home: Yes Do you feel safe in your relationship?: Yes Exam Narrative Exam Narrative: Constitutional: [id number], pleasant, conversing normally but does appear uncomfortable HENT: head atraumatic/normocephalic/normal inspection, mucous membranes moist Eyes: conjunctiva normal, sclera normal, pupils 3mm b/l Neck: no stridor, normal ROM, trachea midline Resp: normal work of breathing, no respiratory distress Cardio: normal rate, normal rhythm GI: abdomen soft, diffuse tenderness palpation throughout worse in suprapubic area and right lower quadrant, guarding present, non-distended Skin: warm, dry, normal color, no rash Neuro: alert, not altered, grossly non-focal, normal tone Ext: no edema Psych: normal mood, normal affect, normal behavior Course Vital Signs Vital signs: Vital Signs Temperature 36.3 C L 02/24/20 08:51 Pulse 111 H 02/24/20 08:51 Respiratory Rate 20 02/24/20 08:51 Blood Pressure 160/107 H 02/24/20 08:51 Pulse Oximetry 98 02/24/20 08:51 Temperature 36.3 C L 02/24/20 08:51 Pulse 87 02/24/20 09:38 Pulse 81 02/24/20 09:30 Respiratory Rate 24 02/24/20 09:30 Respiratory Effort Non-Labored 02/24/20 08:55 Blood Pressure 114/69 02/24/20 09:38 Blood Pressure Mean 80 02/24/20 09:38 Blood Pressure Position Standing 02/24/20 08:51 Pulse Oximetry 98 02/24/20 09:30 Oxygen Delivery Method Room Air 02/24/20 08:51 Oxygen Flow Rate 0 02/24/20 08:51 Pain Level 7 02/24/20 08:51 Lab/Test Results Lab/Test Results: Laboratory Tests Range/Units 02/24/20 02/24/20 08:55 08:55 WBC (4.4-10.8) 10^3/uL 5.61 RBC (3.93-5.22) 10^6/uL 4.77 Hgb (11.2-15.7) g/dL 12.8 Hct (36.0-46.0) % 38.7 MCV (80-95) fL 81.1 MCH (27.0-33.0) pg 26.8 L MCHC (32.0-36.0) % 33.1 RDW (11.7-14.6) % 13.5 Plt Count (130-400) 10^3/uL 256 MPV (8.0-11.0) fL 10.0 Immature Gran % 0.5 Neutrophils % 54.4 Lymphocytes % 38.3 Monocytes % 5.0 Eosinophils % 1.4 Basophils % 0.4 Nucleated RBC % % 0 Absolute Neutrophils (1.2-6.7) 10^3/uL 3.05 Absolute Lymphocytes (1.2-3.4) 10^3/uL 2.15 Absolute Monocytes (0.1-0.8) 10^3/uL 0.28 Absolute Eosinophils (0.0-0.7) 10^3/uL 0.08 Absolute Basophils (0.0-0.2) 10^3/uL 0.02 PT (9.3-11.0) sec 9.4 INR (0.9-1.1) 0.9 POC- Test(urine) Negative
[2020-02-24 09:43] LABS: Bilirubin Negative (Negative); Blood Negative (Negative); Clarity Clear (Clear); Glucose Negative (Negative); Ketones Negative (Negative); Leukocyte Esterase Negative (Negative); Nitrite Negative (Negative); Specific Gravity 1.025 (1.005-1.025); Urobilinogen 0.2 EU/dL (Up TO 0.2); pH 7.5 (5-8)
[2020-02-24] MEDS: Omnipaque 350 MG/ML 100 ML BTL IJ (09:47)
[2020-02-24] MEDS: Normal Saline - Diluent 50 ML VIAL IV (09:49)
--- NOTE | 2020-02-24 09:51 | DI.CT_ITS ---
EXAM: CT ABDOMEN PELVIS W CLINICAL HISTORY: qlower abdominal pain, worse on the right TECHNIQUE: Imaging Protocol: Axial computed tomography images with coronal and sagittal reformatted images were created and reviewed CONTRAST MATERIAL: Intravenous: Omnipaque 350 Contrast volume:100 mL Oral: No COMPARISON: CT CT ABDOMEN PELVIS W from 07/04/2019 FINDINGS: ABDOMEN: Lung Bases: Normal where visualized. Liver: Normal density. No measurable mass. 19 cm in length. Portal, Superior Mesenteric, and Splenic Veins: Unremarkable. Gallbladder and Biliary Tract: No radiodense calculus or dilation. Pancreas: Normal density, no abnormal calcifications or inflammatory process. Spleen: Normal. Adrenals: No masses seen. Kidneys: Normal size, contour and axis. No radiodense stones or obstructive uropathy. No masses seen. Abdominal Aorta: Abdominal portion non-dilated. Bowel: No obstruction or bowel wall thickening. Appendix is unremarkable. Peritoneal Cavity: No focal fluid collection or mesenteric inflammatory response. Trace amount of fr ee fluid in the pelvis. Lymph Nodes: Within normal limits. Bones: Mild degenerative changes. Soft Tissues: Small fat containing umbilical hernia. PELVIS: Bladder: Symmetric distention, no gross wall thickening. Reproductive Organs: Unremarkable as visualized. Lymph Nodes: Within normal limits. Bones: Mild degenerative changes. IMPRESSION: No acute abdominal or pelvic process. Findings were discussed with the emergency department on the date of the examination. RADIATION DOSE DELIVERED: 1,516.52mGy.cm Total DLP DATA REPOSITORY: All CT scans at this facility are submitted to the National Radiology Data Registry (NRDR) Dose Index Registry (DIR) with the [employer] (A[employer]). RADIATION OPTIMIZATION: All CT scans at this facility use at least one of these dose optimization te chniques: automated exposure control; mA and/or kV adjustment per patient size (includes targeted exa ms where dose is matched to clinical indication); or iterative reconstruction.
[2020-02-24 09:55] LABS: ALT 43 U/L (14-59); AST 29 U/L (15-37); Alkaline Phosphatase 80 U/L (46-116); Anion Gap 8.7 mmol/L (3-11); BUN 9 mg/dL (7-18); Bilirubin, Total 0.4 mg/dL (0.2-1.0); CO2 28.3 mmol/L (21.0-32.0); CREATININE 0.76 mg/dL (0.55-1.02); Calcium 9.3 mg/dL (8.5-10.1); Chloride 104 mmol/L (98-107); Glucose 112 mg/dL (74-106); Magnesium 1.8 mg/dL (1.8-2.4); Potassium 3.9 mmol/L (3.5-5.1); Sodium 141 mmol/L (136-145); Total Protein 8.2 g/dL (6.4-8.2)
[2020-02-24 09:56] LABS: HCG Quant, Pregnancy < 1 mIU/mL (1-3)
[2020-02-24 10:02] LABS: Lipase 134 U/L (73-393)
--- NOTE | 2020-02-24 10:04 | DI.US_ITS ---
EXAM: US PELVIS TRANSVAGINAL CLINICAL HISTORY: lower abdominal pain. TECHNIQUE: Transabdominal and transvaginal pelvic ultrasound was performed using standard protocol. COMPARISON: US OB US 2-3 TRIMESTER TRANSABD*P from 10/06/2012 FINDINGS: UTERUS: Position: Anteverted. Size: 10.7 long by 4.7 AP by 5.5 transverse cm Endometrium: 0.6 cm. Normal for patient's menstrual status. Myometrium: Unremarkable. Cervix: Unremarkable. OVARIES: The ovaries were best appreciated transabdominally. The left ovary was not seen transvagina lly. Right: 3.4 x 1.4 x 1.6 cm Cyst or mass: None. Left: 3.3 x 2.7 x 2.0 cm Cyst or mass: None. DOPPLER: Color: Flow seen to the right ovary. No hyperemia. Evaluation was difficult due to the patient's bod y habitus. Blood flow to the left ovary could not be obtained. Duplex: Normal ovarian arterial waveforms visualized in the right ovary. CUL-DE-SAC: Free fluid: None. Other: None. IMPRESSION: 1. Normal-appearing uterus with endometrial stripe within normal limits. 2. Technically limited examination of the adnexa and ovaries. DATA REPOSITORY:
--- NOTE | 2020-02-24 13:15 | RT.EKG_ITS ---
APPROVED REPORT Exam: Resting ECG Patient Location: E HR:89 bpm ECG Measurements Heart Rate 89 AXIS DC 140 P 27 QRSd 95 QRS 47 QT 354 T 14 QTc 431 Conclusion Sinus rhythm...normal P axis, V-rate 60- 99 EKG shows sinus rhythm at 89, normal axis, no acute ischemic changes, nondiagnostic EKG
[2020-02-24 13:28] LABS: HCT 34.3 % (36.0-46.0); HGB 11.2 g/dL (11.2-15.7); Lactate 1.4 mmol/L (0.6-1.4); MCH 26.8 pg (27.0-33.0); MCHC 32.7 % (32.0-36.0); MCV 82.1 fL (80-95); MPV 9.8 fL (8.0-11.0); Platelet Count 210 10^3/uL (130-400); RBC 4.18 10^6/uL (3.93-5.22); RDW 13.7 % (11.7-14.6); RDW-SD 40.7 fL; WBC 11.63 10^3/uL (4.4-10.8)
[2020-02-24] MEDS: DOXYCYCLINE 100 MG in Normal Saline 100 ML IVPB (13:46)
[2020-02-24] MEDS: Normal Saline Flush 10 ML SYR IVP ×6 (13:47→23:43)
--- NOTE | 2020-02-24 14:08 | W.GYNCONSULT ---
Date of service: 02/24/20 Time of Service: 14:09 Assessment and Plan Assessment and plan (1) Left lower quadrant abdominal pain: Status: Acute (2) Hemorrhagic ovarian cyst: Status: Acute Assessment and plan: I did review her CT and it does appear to be left-sided ovarian cyst which was not noted on her ultrasound. The patient does not have a leukocytosis, urinalysis was normal, ultrasound was normal, CT was normal. Most likely this represents a hemorrhagic corpus luteum. I feel that the patient may be discharged home with pain medication and will plan follow-up in the clinic in the next couple of days. Should her pain worsen she should return for reevaluation. I did discuss with her that it may take several days for her pain to resolve. History of Present Illness History of Present Illness Chief Complaint: Abdominal pain Narrative: 34-year-old G2, P2 presents to the emergency department today with an onset of severe low midline abdominal pain. Patient reports that she has not felt well in her abdomen for the last several days but that her pain began this morning abruptly. She denies any lightheadedness. She reports no fevers or chills. She has no change in her bowel habits. She has no dysuria. During her evaluation in the ER a fast ultrasound was performed which was felt to demonstrate a minimal free fluid above the liver. She did have a CT of the abdomen and pelvis which was normal. A pelvic ultrasound was also normal and left ovary was not visualized. No significant free fluid was noted on her ultrasound. Review of Systems All systems reviewed & are unremarkable except as noted in HPI and below [facility] Medical History Seasonal allergic rhinitis due to pollen (Acute) Seasonal allergies (Acute) Social History Smoking/Tobacco Use Status: Never Alcohol Intake: current Alcohol Intake frequency: holidays/special occasions only Drug use: Never Substance use type: does not use Current gender identity: female Do you feel safe at home: Yes Do you feel safe in your relationship?: Yes Exam GI Other: On abdominal exam there is moderate low midline abdominal pain. She does have pain along the left side of her abdomen which radiates to the pelvis as well. No significant right side abdominal pain. No rebound, no guarding, no rigidity. No palpable masses. Other: Pelvic examination as per the emergency department incision Results Last Vital Signs Temp 97.3 F L 02/24/20 08:51 Pulse 96 H 02/24/20 14:00 Resp 19 02/24/20 14:01 BP 118/69 02/24/20 14:00 Pulse Ox 96 02/24/20 14:01 Labs Result diagrams: 02/24/20 13:20 02/24/20 08:55 Labs: Laboratory Results - last 24 hr 02/24/20 02/24/20 02/24/20 08:55 08:55 08:55 WBC 5.61 RBC 4.77 Hgb 12.8 Hct 38.7 MCV 81.1 MCH 26.8 L MCHC 33.1 RDW 13.5 Plt Count 256 MPV 10.0 Immature Gran % 0.5 Neutrophils % 54.4 Lymphocytes % 38.3 Monocytes % 5.0 Eosinophils % 1.4 Basophils % 0.4 Nucleated RBC % 0 Absolute Neutrophils 3.05 Absolute Lymphocytes 2.15 Absolute Monocytes 0.28 Absolute Eosinophils 0.08 Absolute Basophils 0.02 PT 9.4 INR 0.9 VBG Lactate Sodium 141 Potassium 3.9 Chloride 104 Carbon Dioxide 28.3 Anion Gap 8.7 BUN 9 Creatinine 0.76 Estimated GFR/1.73 m2 >= 60.00 Glucose 112 H Calcium 9.3 Magnesium 1.8 Total Bilirubin 0.4 AST 29 ALT 43 Alkaline Phosphatase 80 Total Protein 8.2 Albumin 4.0 Lipase 134 Beta HCG, Quant < 1 L Urine Color Urine Clarity Urine pH Ur Specific [place] Urine Protein Urine Ketones Urine Blood Urine Nitrite Urine Bilirubin Urine Urobilinogen Ur Leukocyte Esterase Urine Glucose Patient ABO/Rh Antibody Screen 02/24/20 02/24/20 02/24/20 09:25 09:35 13:20 WBC RBC Hgb Hct MCV MCH MCHC RDW Plt Count MPV Immature Gran % Neutrophils % Lymphocytes % Monocytes % Eosinophils % Basophils % Nucleated RBC % Absolute Neutrophils Absolute Lymphocytes Absolute Monocytes Absolute Eosinophils Absolute Basophils PT INR VBG Lactate 1.4 Sodium Potassium Chloride Carbon Dioxide Anion Gap BUN Creatinine Estimated GFR/1.73 m2 Glucose Calcium Magnesium Total Bilirubin AST ALT Alkaline Phosphatase Total Protein Albumin Lipase Beta HCG, Quant Urine Color Yellow Urine Clarity Clear Urine pH 7.5 Ur Specific [place] 1.025 Urine Protein Negative Urine Ketones Negative Urine Blood Negative Urine Nitrite Negative Urine Bilirubin Negative Urine Urobilinogen 0.2 Ur Leukocyte Esterase Negative Urine Glucose Negative Patient ABO/Rh A Positive Antibody Screen Negative 02/24/20 13:20 WBC 11.63 H D RBC 4.18 Hgb 11.2 Hct 34.3 L MCV 82.1 MCH 26.8 L MCHC 32.7 RDW 13.7 Plt Count 210 MPV 9.8 Immature Gran % Neutrophils % Lymphocytes % Monocytes % Eosinophils % Basophils % Nucleated RBC % Absolute Neutrophils Absolute Lymphocytes Absolute Monocytes Absolute Eosinophils Absolute Basophils PT INR VBG Lactate Sodium Potassium Chloride Carbon Dioxide Anion Gap BUN Creatinine Estimated GFR/1.73 m2 Glucose Calcium Magnesium Total Bilirubin AST ALT Alkaline Phosphatase Total Protein Albumin Lipase Beta HCG, Quant Urine Color Urine Clarity Urine pH Ur Specific [place] Urine Protein Urine Ketones Urine Blood Urine Nitrite Urine Bilirubin Urine Urobilinogen Ur Leukocyte Esterase Urine Glucose Patient ABO/Rh Antibody Screen
[2020-02-24 14:10] LABS: D-Dimer 384 ng/mlFEU (<500)
[2020-02-24] MEDS: Ketorolac 15 MG/ML VIAL (14:48)
[2020-02-24] MEDS: Lactated Ringers 1,000 ML 125 ML IV ×2 (16:00→23:42)
[2020-02-24] MEDS: Ketorolac 30 MG/ML VIAL IVP ×2 (16:31→22:44)
[2020-02-24] MEDS: ACETAMINOPHEN 1,000 MG/100 ML BTL 400 MG IVPB ×2 (17:23→23:41)
[2020-02-24 19:55] LABS: Abs Immature Grans 0.03 10^3/uL (0.0-0.06); Absolute Basophil Count 0.02 10^3/uL (0.0-0.2); Absolute Eosinophil Count 0.01 10^3/uL (0.0-0.7); Absolute Lymphocyte Count 1.93 10^3/uL (1.2-3.4); Absolute Monocyte Count 0.49 10^3/uL (0.1-0.8); Absolute Neutrophil Count 8.09 10^3/uL (1.2-6.7); Basophils % 0.2; Eosinophils % 0.1; HCT 31.7 % (36.0-46.0); HGB 10.5 g/dL (11.2-15.7); Immature Grans % 0.3; Lymphocytes % 18.3; MCH 26.9 pg (27.0-33.0); MCHC 33.1 % (32.0-36.0); MCV 81.3 fL (80-95); MPV 10.2 fL (8.0-11.0); Monocytes % 4.6; Neutrophils % 76.5; Nucleated RBC 0 %; Platelet Count 217 10^3/uL (130-400); RDW 13.9 % (11.7-14.6); RDW-SD 40.6 fL; WBC 10.57 10^3/uL (4.4-10.8)
[2020-02-24] MEDS: oxyCODONE 5 MG TAB PO (21:34)
[2020-02-25] MEDS: Ketorolac 30 MG/ML VIAL IVP ×2 (03:22→10:36)
[2020-02-25 03:23] VITALS: TEMP 37.4
[2020-02-25] MEDS: ACETAMINOPHEN 1,000 MG/100 ML BTL 400 MG IVPB ×2 (03:23→10:35)
[2020-02-25 03:45] VITALS: BP 102/67; PULSE 65; RESP 16; TEMP 36.6; O2SAT 98
[2020-02-25] MEDS: Lactated Ringers 1,000 ML 125 ML IV (07:52)
[2020-02-25 08:14] VITALS: BP 138/84; PULSE 78; RESP 18; TEMP 36.9; O2SAT 98
[2020-02-25 08:40] LABS: COVID-19 RT-PCR UVMMC Result Negative (Negative)
[2020-02-25] MEDS: oxyCODONE 5 MG TAB PO (09:07)
[2020-02-25 10:07] LABS: Abs Immature Grans 0.02 10^3/uL (0.0-0.06); Absolute Basophil Count 0.02 10^3/uL (0.0-0.2); Absolute Lymphocyte Count 1.77 10^3/uL (1.2-3.4); Absolute Monocyte Count 0.33 10^3/uL (0.1-0.8); Absolute Neutrophil Count 2.93 10^3/uL (1.2-6.7); Basophils % 0.4; Eosinophils % 1.9; HCT 33.4 % (36.0-46.0); HGB 10.9 g/dL (11.2-15.7); Immature Grans % 0.4; Lymphocytes % 34.2; MCHC 32.6 % (32.0-36.0); MCV 82.7 fL (80-95); MPV 9.9 fL (8.0-11.0); Monocytes % 6.4; Neutrophils % 56.7; Nucleated RBC 0 %; Platelet Count 190 10^3/uL (130-400); RBC 4.04 10^6/uL (3.93-5.22); RDW 13.9 % (11.7-14.6)
[2020-02-25 10:09] LABS: WBC 5.17 10^3/uL (4.4-10.8)
[2020-02-25] MEDS: Normal Saline 50 ML 200 ML IV (10:37)
--- NOTE | 2020-02-25 11:37 | PGE_ITS ---
Date of Service Date of service: 02/25/20 Time of Service: 11:37 Assessment and Plan Assessment and plan (1) Hemorrhagic ovarian cyst: Status: Acute Assessment and plan: Plan to discharge the patient home today. I have no evidence to suggest an active infection at this point. We will plan to have the patient follow-up in the clinic with us next week. She is advised to return to care promptly for increasing pain or fever. Subjective Subjective Interval history since last seen: Pain somewhat improved today. She is ambulatory with less difficulty. She has been tolerating regular diet. No nausea vomiting. She has been afebrile. Exam GI Other: There is still some diffuse tenderness to her abdomen per particularly in the low midline abdomen and left lower quadrant. It is improved clinically from her exam yesterday. Objective Objective Clinical Data: Abnormal lab results 02/24/20 02/24/20 02/25/20 Range/Units 13:20 19:10 09:50 WBC 11.63 H D (4.4-10.8) 10^3/uL RBC 3.90 L (3.93-5.22) 10^6/uL Hgb 10.5 L 10.9 L (11.2-15.7) g/dL Hct 34.3 L 31.7 L 33.4 L (36.0-46.0) % MCH 26.8 L 26.9 L (27.0-33.0) pg Absolute Neutrophils 8.09 H (1.2-6.7) 10^3/uL Vital Signs Temperature 98.4 F 02/25/20 08:14 Temperature Source Tympanic 02/25/20 08:14 Pulse 78 02/25/20 08:14 Pulse Rhythm Regular 02/25/20 01:14 Pulse 101 H 02/24/20 15:01 Respiratory Rate 18 02/25/20 08:14 Respiratory Effort Non-Labored 02/25/20 01:14 Respiratory Depth Normal 02/25/20 01:14 Respiratory Pattern Normal 02/25/20 01:14 Blood Pressure 138/84 02/25/20 08:14 Blood Pressure Mean 82 02/24/20 15:00 Blood Pressure Position Standing 02/24/20 08:51 Pulse Oximetry 98 02/25/20 08:14 Oxygen Delivery Method Room Air 02/25/20 08:14 Oxygen Flow Rate 0 02/25/20 08:14 Pain Level 3 02/25/20 10:36 Intake & Output 02/24/20 02/24/20 02/25/20 11:59 23:59 11:59 Intake Total 3232.5 3222.5 / 3232.5 1200 / 1200 Output Total 300 / 1999 1700 / 1999 1600 / 1600 Balance -290 / 1232.5 1522.5 / 1232.5 -400 / -400 Weight 229 lb 15.991 oz 229 lb 15.991 oz Intake: IV 10 / 3232.5 3222.5 / 3232.5 1200 / 1200 Output: Urine 300 / 1999 1700 / 1999 1600 / 1600 Other: Urine Color Pale Yellow Yellow Urine Appearance Clear Clear Urine Odor Normal Normal Voiding Methods Toilet Toilet Laboratory Results WBC 5.17 10^3/uL (4.4-10.8) D 02/25/20 09:50 RBC 4.04 10^6/uL (3.93-5.22) 02/25/20 09:50 Hgb 10.9 g/dL (11.2-15.7) L 02/25/20 09:50 Hct 33.4 % (36.0-46.0) L 02/25/20 09:50 MCV 82.7 fL (80-95) 02/25/20 09:50 MCH 27.0 pg (27.0-33.0) 02/25/20 09:50 MCHC 32.6 % (32.0-36.0) 02/25/20 09:50 RDW 13.9 % (11.7-14.6) 02/25/20 09:50 Plt Count 190 10^3/uL (130-400) 02/25/20 09:50 MPV 9.9 fL (8.0-11.0) 02/25/20 09:50 Immature Gran % 0.4 02/25/20 09:50 Neutrophils % 56.7 02/25/20 09:50 Lymphocytes % 34.2 02/25/20 09:50 Monocytes % 6.4 02/25/20 09:50 Eosinophils % 1.9 02/25/20 09:50 Basophils % 0.4 02/25/20 09:50 Nucleated RBC % 0 % 02/25/20 09:50 Absolute Neutrophils 2.93 10^3/uL (1.2-6.7) 02/25/20 09:50 Absolute Lymphocytes 1.77 10^3/uL (1.2-3.4) 02/25/20 09:50 Absolute Monocytes 0.33 10^3/uL (0.1-0.8) 02/25/20 09:50 Absolute Eosinophils 0.10 10^3/uL (0.0-0.7) 02/25/20 09:50 Absolute Basophils 0.02 10^3/uL (0.0-0.2) 02/25/20 09:50 PT 9.4 sec (9.3-11.0) 02/24/20 08:55 INR 0.9 (0.9-1.1) 02/24/20 08:55 D-Dimer 384 ng/mlFEU (<500) 02/24/20 13:20 VBG Lactate 1.4 mmol/L (0.6-1.4) 02/24/20 13:20 Sodium 141 mmol/L (136-145) 02/24/20 08:55 Potassium 3.9 mmol/L (3.5-5.1) 02/24/20 08:55 Chloride 104 mmol/L (98-107) 02/24/20 08:55 Carbon Dioxide 28.3 mmol/L (21.0-32.0) 02/24/20 08:55 Anion Gap 8.7 mmol/L (3-11) 02/24/20 08:55 BUN 9 mg/dL (7-18) 02/24/20 08:55 Creatinine 0.76 mg/dL (0.55-1.02) 02/24/20 08:55 Estimated GFR/1.73 m2 >= 60.00 (mL/min/1.73m2) 02/24/20 08:55 Glucose 112 mg/dL (74-106) H 02/24/20 08:55 Calcium 9.3 mg/dL (8.5-10.1) 02/24/20 08:55 Magnesium 1.8 mg/dL (1.8-2.4) 02/24/20 08:55 Total Bilirubin 0.4 mg/dL (0.2-1.0) 02/24/20 08:55 AST 29 U/L (15-37) 02/24/20 08:55 ALT 43 U/L (14-59) 02/24/20 08:55 Alkaline Phosphatase 80 U/L (46-116) 02/24/20 08:55 Total Protein 8.2 g/dL (6.4-8.2) 02/24/20 08:55 Albumin 4.0 g/dL (3.4-5.0) 02/24/20 08:55 Lipase 134 U/L (73-393) 02/24/20 08:55 Beta HCG, Quant < 1 mIU/mL (1-3) L 02/24/20 08:55 Urine Color Yellow (Yellow) 02/24/20 09:35 Urine Clarity Clear (Clear) 02/24/20 09:35 Urine pH 7.5 (5-8) 02/24/20 09:35 Ur Specific [place] 1.025 (1.005-1.025) 02/24/20 09:35 Urine Protein Negative mg/dL (Negative) 02/24/20 09:35 Urine Ketones Negative mg/dL (Negative) 02/24/20 09:35 Urine Blood Negative (Negative) 02/24/20 09:35 Urine Nitrite Negative (Negative) 02/24/20 09:35 Urine Bilirubin Negative (Negative) 02/24/20 09:35 Urine Urobilinogen 0.2 EU/dL (Up TO 0.2) 02/24/20 09:35 Ur Leukocyte Esterase Negative (Negative) 02/24/20 09:35 Urine Glucose Negative mg/dL (Negative) 02/24/20 09:35 COVID-19 PCR Negative (Negative) 02/24/20 14:35 Nasopharyn COVID-19 PCR Not Applicable 02/24/20 14:35 Ref Test Perform Site [facility] lab 02/24/20 14:35 Patient ABO/Rh A Positive 02/24/20 09:25 Antibody Screen Negative 02/24/20 09:25
--- NOTE | 2020-02-25 11:37 | CHAPLAIN ---
Melissa was in bed when I visited. She said she is more comfortable than she was but is still dealing with pain. She has been in touch with family by phone. I explained my role and offered support.
[2020-02-25 15:59] LABS: Chlamydia Result Negative (Negative); GC Result Negative (Negative)
--- NOTE | 2020-02-25 16:18 | PDOC.CMDIS ---
- If Service Date Differs Date of service: 02/25/20 Time of Service: 16:18 LACE Index Scoring Tool - Questions: Length of Stay (in days): 1 Acuity (Admit via E.D.?): Yes E.D. Visits: 2 - Answers: Total Score: 6 Risk of Readmission: Low Risk Care Management Discharge Reason for Hospitalization: Abdominal pain Discharge Plan: Melissa will be discharged home with no new services. She will follow up with her community providers and discharge plan of care and transport with family. Patient/Family Education Needs: Discharge plan, follow up, limitations, Ask Me Three.
[2020-02-28 14:49] LABS: Chlamydia Result Negative (Negative); GC Result Negative (Negative)
== END 2020-02-25 14:01 | disposition home or self-care (01) ==
LOC: ER 08:52 → MS 15:08
PROVIDERS: Admitting Provider Obstetrics & Gynecology; Emergency Provider Student in an Organized Health Care Education/Training Program; PCP Nurse Practitioner Family; Visit Provider Obstetrics & Gynecology
DX: N83.202 Unspecified ovarian cyst, left side (principal); R00.0 Tachycardia, unspecified
CPT/HCPCS: 36415; 51701; 80053; 81025; 83690; 85027; 86850; 86900; 86901; 87491; 87591; 93005; 99233; 99253; 99285; U0003; 74177; 76830; 76856; 81003; 83605; 83735; 84702; 85025; 85379; 85610; 87480; 87510; 87660; 93010; G0378; J0131; J0696; J1885; J2405; J3490

== ENCOUNTER 2020-02-29 13:59 | Outpatient (REF) | payer MEDICAID, SELFPAY ==
[2020-03-01 14:28] LABS: Chlamydia Result Negative (Negative); GC Result Negative (Negative)
== END 2020-02-29 14:19 ==
LOC: LBN 13:59
PROVIDERS: PCP Nurse Practitioner Family; Visit Provider Obstetrics & Gynecology
DX: N89.8 Other specified noninflammatory disorders of vagina (principal)
CPT/HCPCS: 87491; 87591; 87480; 87510; 87660

== ENCOUNTER 2020-06-27 11:25 | Emergency (ER) | payer MEDICAID, SELFPAY ==
[2020-06-27 11:51] VITALS: BP 160/102; PULSE 104; RESP 16; TEMP 36.4; O2SAT 98
--- NOTE | 2020-06-27 11:55 | W.ED.GENAD ---
Discharge Plan Disposition Patient Disposition: HOME Condition: Improving Discharge Details Clinical Impression: Abdominal pain Primary Care Provider: Verona Colindres ED Provider: Angella Marshall Home Meds and New Rx's Prescriptions: Continued fluticasone propionate [Flonase Allergy Relief] 50 mcg/actuation [place],Suspension 2 spray INTRANASAL PRN PRNRF: 0 sertraline 50 mg Tablet 75 mg PO DAILY RF: 0 Discharge Instructions Instructions: Abdominal Pain (ED) Additional Instructions: Drink plenty of fluids and get plenty of rest. Alternate tylenol and motrin as needed and directed for pain. 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 Return to the emergency department with any worsening or new concerning symptoms such as fever, persistent vomiting, worsening pain or any other concerns. Stand Alone Forms: Work Release Discharge Data Discharge Date/Time-TO BE ENTERED AT DEPARTURE: 06/27/20 16:34 Discharge Physician: Angella Marshall Medical Decision Making 1200 -- 35yo F w/ a h/o ovarian cysts presents for lower abd pain since yesterday. Review of records note that patient's ultrasound and CT abdomen and pelvis from February 2020 were read as negative after assessment by Dr. Hernandez, it was found that she possibly had a hemorrhagic ovarian cyst on her ultrasound. Blood pressure hypertensive. Heart rate 100s. She is afebrile and appears nontoxic. Her abdomen is soft, obese and tender diffusely, but mostly in suprapubic region. No rebound, guarding or rigidity. Will place an IV, bolus IV fluids, screening labs, urinalysis and pelvis ultrasound and give a dose of Toradol and reassess. Patient reassessed and pain still present. Will give a dose of morphine. Labs reviewed and unremarkable. 1440 --patient reassessed and states she feels better. Vitals within normal limits. States pain decreased from 8/10-7/10. Reassessment of abdomen left lower and right lower quadrant and suprapubic tenderness. Will obtain a CT abdomen and pelvis to rule out an acute abdominal process such as appendicitis, diverticulitis, colitis. Will give a dose of IV Tylenol and IV fluids and reassess. 1600 -- CT abdomen pelvis negative. Patient reassessed and she admits to significant improvement in pain. Patient feels good to go home. Patient is requesting work note. Advised to follow up with the primary care doctor for re-evaluation. Usual and customary return precautions given prior to discharge. Medical Records Medical records reviewed: Yes I reviewed the patient's medical records. Imaging Data Radiologic Study: Radiologist's impression: CT ABDOMEN PELVIS W CLINICAL HISTORY: RLQ abd pain, r/o acute appendicitis, colitis TECHNIQUE: Imaging Protocol: Axial computed tomography images with coronal and sagittal reformatted images were created and reviewed CONTRAST MATERIAL: Intravenous: Omnipaque 350 Contrast volume:100 mL Oral: No COMPARISON: CT CT ABDOMEN PELVIS W from 02/24/2020 FINDINGS: ABDOMEN: Lung Bases: Normal where visualized. Liver: Normal density. No measurable mass. Portal, Superior Mesenteric, and Splenic Veins: Unremarkable. Gallbladder and Biliary Tract: No radiodense calculus or dilation. Pancreas: Normal density, no abnormal calcifications or inflammatory process. Spleen: Normal. Adrenals: No masses seen. Kidneys: Normal size, contour and axis. No radiodense stones or obstructive uropathy. No masses seen. Abdominal Aorta: Abdominal portion non-dilated. Bowel: No obstruction or bowel wall thickening. The appendix is normal. Peritoneal Cavity: No ascites, collection or mesenteric inflammatory response. Lymph Nodes: Within normal limits. Bones: Degenerative changes. Soft Tissues: Unremarkable. PELVIS: Bladder: Symmetric distention, no gross wall thickening. Reproductive Organs: Unremarkable as visualized. Lymph Nodes: Within normal limits. Bones: Within normal limits. IMPRESSION: 1. No evidence of an acute abdominal process. 2. Normal appendix. 3. Findings were discussed with the emergency department on the date of the examination. US PELVIS TRANSVAGINAL CLINICAL HISTORY: lower abd pain, h/o ruptured ovarian cysts. TECHNIQUE: Transabdominal and transvaginal pelvic ultrasound was performed using standard protocol. COMPARISON: US US PELVIS TRANSVAGINAL from 02/24/2020 FINDINGS: KIDNEYS: Kidneys are symmetric in size. No evidence of renal calculi. No evidence of hydronephrosis. No renal mass or cyst identified. UTERUS: Position: Anteverted. Size: 11.2 long by 5.1 AP by 5.4 transverse cm Endometrium: 0.3 cm. Normal for patient's menstrual status. Myometrium: Unremarkable. Cervix: Unremarkable. OVARIES: Ovaries were visualized transabdominally. Right: 2.6 x 2.4 x 2.2 cm Cyst or mass: None. Left: 3.0 x 2.6 x 2.1 cm Cyst or mass: None. DOPPLER: Color: Symmetric and uniform flow to both ovaries. No hyperemia. Duplex: Normal ovarian arterial waveforms visualized. CUL-DE-SAC: Free fluid: None. Other: None. IMPRESSION: 1. Normal sonographic appearance of the kidneys. 2. Normal-appearing uterus with endometrial stripe within normal limits. 3. Unremarkable bilateral ovaries. Lab Data Lab results reviewed: Yes I reviewed the patient's lab results. Labs: Laboratory Tests Range/Units 06/27/20 06/27/20 06/27/20 12:25 12:25 12:25 WBC (4.4-10.8) 10^3/uL 5.89 RBC (3.93-5.22) 10^6/uL 4.49 Hgb (11.2-15.7) g/dL 11.8 Hct (36.0-46.0) % 36.0 MCV (80-95) fL 80.2 MCH (27.0-33.0) pg 26.3 L MCHC (32.0-36.0) % 32.8 RDW (11.7-14.6) % 13.4 Plt Count (130-400) 10^3/uL 232 MPV (8.0-11.0) fL 9.7 Immature Gran % 0.3 Neutrophils % 54.3 Lymphocytes % 35.7 Monocytes % 7.5 Eosinophils % 1.9 Basophils % 0.3 Nucleated RBC % % 0 Absolute Neutrophils (1.2-6.7) 10^3/uL 3.20 Absolute Lymphocytes (1.2-3.4) 10^3/uL 2.10 Absolute Monocytes (0.1-0.8) 10^3/uL 0.44 Absolute Eosinophils (0.0-0.7) 10^3/uL 0.11 Absolute Basophils (0.0-0.2) 10^3/uL 0.02 PT (9.3-11.0) sec 9.9 INR (0.9-1.1) 1.0 APTT (21.0-27.5) sec 23.9 Sodium (136-145) mmol/L 137 Potassium (3.5-5.1) mmol/L 3.8 Chloride (98-107) mmol/L 103 Carbon Dioxide (21.0-32.0) mmol/L 26.8 Anion Gap (3-11) mmol/L 7.2 BUN (7-18) mg/dL 10 Creatinine (0.55-1.02) mg/dL 0.80 Estimated GFR/1.73 m2 (mL/min/1.73m2) >= 60.00 Glucose (74-106) mg/dL 107 H Calcium (8.5-10.1) mg/dL 9.4 Total Bilirubin (0.2-1.0) mg/dL 0.2 AST (15-37) U/L 41 H ALT (14-59) U/L 48 Alkaline Phosphatase (46-116) U/L 79 Total Protein (6.4-8.2) g/dL 7.7 Albumin (3.4-5.0) g/dL 3.8 Urine Color (Yellow) Urine Clarity (Clear) Urine pH (5-8) Ur Specific [place] (1.005-1.025) Urine Protein (Negative) mg/dL Urine Ketones (Negative) mg/dL Urine Blood (Negative) Urine Nitrite (Negative) Urine Bilirubin (Negative) Urine Urobilinogen (Up TO 0.2) EU/dL Ur Leukocyte Esterase (Negative) Urine RBC (0-2) HPF Urine WBC (0-5) HPF Ur Epithelial Cells (Negative) HPF Urine Crystals (Negative) HPF Urine Bacteria (Negative) HPF Urine Casts (Negative) LPF Urine Mucus (Negative) Ur Culture Indicated? Urine Glucose (Negative) mg/dL Range/Units 06/27/20 12:45 WBC (4.4-10.8) 10^3/uL RBC (3.93-5.22) 10^6/uL Hgb (11.2-15.7) g/dL Hct (36.0-46.0) % MCV (80-95) fL MCH (27.0-33.0) pg MCHC (32.0-36.0) % RDW (11.7-14.6) % Plt Count (130-400) 10^3/uL MPV (8.0-11.0) fL Immature Gran % Neutrophils % Lymphocytes % Monocytes % Eosinophils % Basophils % Nucleated RBC % % Absolute Neutrophils (1.2-6.7) 10^3/uL Absolute Lymphocytes (1.2-3.4) 10^3/uL Absolute Monocytes (0.1-0.8) 10^3/uL Absolute Eosinophils (0.0-0.7) 10^3/uL Absolute Basophils (0.0-0.2) 10^3/uL PT (9.3-11.0) sec INR (0.9-1.1) APTT (21.0-27.5) sec Sodium (136-145) mmol/L Potassium (3.5-5.1) mmol/L Chloride (98-107) mmol/L Carbon Dioxide (21.0-32.0) mmol/L Anion Gap (3-11) mmol/L BUN (7-18) mg/dL Creatinine (0.55-1.02) mg/dL Estimated GFR/1.73 m2 (mL/min/1.73m2) Glucose (74-106) mg/dL Calcium (8.5-10.1) mg/dL Total Bilirubin (0.2-1.0) mg/dL AST (15-37) U/L ALT (14-59) U/L Alkaline Phosphatase (46-116) U/L Total Protein (6.4-8.2) g/dL Albumin (3.4-5.0) g/dL Urine Color (Yellow) [place] Urine Clarity (Clear) Clear Urine pH (5-8) 6.0 Ur Specific [place] (1.005-1.025) 1.010 Urine Protein (Negative) mg/dL Trace H Urine Ketones (Negative) mg/dL Negative Urine Blood (Negative) Large H Urine Nitrite (Negative) Negative Urine Bilirubin (Negative) Negative Urine Urobilinogen (Up TO 0.2) EU/dL 0.2 Ur Leukocyte Esterase (Negative) Negative Urine RBC (0-2) HPF 10-20 H Urine WBC (0-5) HPF 0-2 Ur Epithelial Cells (Negative) HPF Many Urine Crystals (Negative) HPF Negative Urine Bacteria (Negative) HPF Rare Urine Casts (Negative) LPF Negative Urine Mucus (Negative) Negative Ur Culture Indicated? No Urine Glucose (Negative) mg/dL Negative HPI General Mode of arrival: ambulatory. Date/Time Provider Initiated Documentation: 06/27/20 11:52. Limitations to Documentation: no limitations. Information obtained by: patient. HPI Narrative: Pt is a 35yo F with a history of ovarian cyst presents for lower abdominal pain since yesterday. Patient describes the pain as constant, sharp in the suprapubic region without radiation. She states the pain is currently 8/10. She took ibuprofen yesterday but no medication today. She states the pain feels similar to when she had an ovarian cyst in January 2020. She denies fever, chest pain, shortness of breath, nausea, vomiting, diarrhea, urinary symptoms. She states she has been eating normally. She does admit to heavy periods since diagnosed with her ovarian cyst in January. 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 Related Data Home Medications Medication Instructions Recorded Confirmed fluticasone propionate [Flonase 2 spray INTRANASAL PRN PRN 07/04/19 06/27/20 Allergy Relief] sertraline 75 mg PO DAILY 06/27/20 06/27/20 Allergies Allergy/AdvReac Type Severity Reaction Status Date / Time No Known Allergies Allergy Unverified 06/27/20 11:55 General Stated Complaint: [employer] TATYANA: 2 Review of Systems All systems reviewed & are unremarkable except as noted in HPI and below Constitutional Constitutional: Reports as per HPI, Denies chills and Denies fever(s) Eyes Eyes: Denies blurry vision ENT Ears, Nose, Mouth, and Throat: Denies dizziness, Denies sore throat and Denies throat swelling Cardiovascular Cardiovascular: Denies chest pain and Denies dyspnea Respiratory Respiratory: Denies cough and Denies dyspnea Gastrointestinal Gastrointestinal: Reports abdominal pain, Denies diarrhea and Denies vomiting Genitourinary Genitourinary: Denies hematuria and Denies dysuria Musculoskeletal Musculoskeletal: Denies back pain and Denies numbness Integumentary/Breasts Skin/Breast: Denies lesions and Denies rash Neurologic Neurologic: Denies dizziness, Denies localized weakness and Denies numbness Allergic/Immunologic Allergic/Immunologic: Denies throat swelling [facility] Medical History (Updated 06/27/20 @ 16:20 by Angella Marshall DO) Seasonal allergic rhinitis due to pollen Seasonal allergies Social History Smoking/Tobacco Use Status: Never Smoking risk assessment performed?: Yes Alcohol Intake: current Alcohol Intake frequency: holidays/special occasions only Drug use: Never Substance use type: does not use Current gender identity: female Do you feel safe at home: Yes Do you feel safe in your relationship?: Yes Exam Const General: cooperative, healthy appearing and no acute distress HENMT Head: normal to inspection Face and sinus: normal facial exam Eyes General: appearance normal, both eyes and all related structures EOM: EOM intact bilaterally Neck Neck: normal visual inspection and No submandibular swelling Lymphatic: no lymphadenopathy noted Chest Chest: normal inspection of the chest and no tenderness Resp Effort & Inspection: normal respiratory effort and able to speak in complete sentences Auscultation: clear to auscultation bilaterally Cardio Rate: regular rate Rhythm: regular rhythm GI Inspection: normal to inspection and obesity Palpation: soft, not firm, not rigid and tender in the epigastrum, in the LUQ and in the RUQ Auscultation: hypoactive bowel sounds Skin General skin exam: no rashes or lesions noted Neuro General: patient alert, patient awake and patient oriented x3 Cognition: normal cognition Speech: speech normal Motor: muscle tone normal throughout Sensory Exam: no sensory deficits noted Extrem General: normal to inspection, full ROM, capillary refill normal, no calf tenderness bilaterally and no edema Psych Appearance: grossly normal Mental Status: mental status grossly normal Speech and Movement: speech and movement normal Affect: normal affect Course Vital Signs Vital signs: Vital Signs Temperature 97.5 F L 06/27/20 11:51 Pulse 104 H 06/27/20 11:51 Respiratory Rate 16 06/27/20 11:51 Blood Pressure 160/102 H 06/27/20 11:51 Pulse Oximetry 98 06/27/20 11:51 Temperature 97.5 F L 06/27/20 11:51 Temperature Source Skin 06/27/20 11:51 Pulse 104 H 06/27/20 11:51 Respiratory Rate 16 06/27/20 11:51 Respiratory Effort Non-Labored 06/27/20 11:51 Blood Pressure 160/102 H 06/27/20 11:51 Blood Pressure Position Sitting 06/27/20 11:51 Pulse Oximetry 98 06/27/20 11:51 Pain Level 8 06/27/20 11:51
--- NOTE | 2020-06-27 12:30 | DI.US_ITS ---
EXAM: US PELVIS TRANSVAGINAL CLINICAL HISTORY: lower abd pain, h/o ruptured ovarian cysts. TECHNIQUE: Transabdominal and transvaginal pelvic ultrasound was performed using standard protocol. COMPARISON: US US PELVIS TRANSVAGINAL from 02/24/2020 FINDINGS: KIDNEYS: Kidneys are symmetric in size. No evidence of renal calculi. No evidence of hydronephrosis. No renal mass or cyst identified. UTERUS: Position: Anteverted. Size: 11.2 long by 5.1 AP by 5.4 transverse cm Endometrium: 0.3 cm. Normal for patient's menstrual status. Myometrium: Unremarkable. Cervix: Unremarkable. OVARIES: Ovaries were visualized transabdominally. Right: 2.6 x 2.4 x 2.2 cm Cyst or mass: None. Left: 3.0 x 2.6 x 2.1 cm Cyst or mass: None. DOPPLER: Color: Symmetric and uniform flow to both ovaries. No hyperemia. Duplex: Normal ovarian arterial waveforms visualized. CUL-DE-SAC: Free fluid: None. Other: None. IMPRESSION: 1. Normal sonographic appearance of the kidneys. 2. Normal-appearing uterus with endometrial stripe within normal limits. 3. Unremarkable bilateral ovaries. DATA REPOSITORY:
[2020-06-27 12:31] LABS: Abs Immature Grans 0.02 10^3/uL (0.0-0.06); Absolute Basophil Count 0.02 10^3/uL (0.0-0.2); Absolute Eosinophil Count 0.11 10^3/uL (0.0-0.7); Absolute Monocyte Count 0.44 10^3/uL (0.1-0.8); Basophils % 0.3; Eosinophils % 1.9; HGB 11.8 g/dL (11.2-15.7); Immature Grans % 0.3; Lymphocytes % 35.7; MCH 26.3 pg (27.0-33.0); MCHC 32.8 % (32.0-36.0); MCV 80.2 fL (80-95); MPV 9.7 fL (8.0-11.0); Monocytes % 7.5; Neutrophils % 54.3; Nucleated RBC 0 %; Platelet Count 232 10^3/uL (130-400); RBC 4.49 10^6/uL (3.93-5.22); RDW 13.4 % (11.7-14.6); RDW-SD 38.5 fL; WBC 5.89 10^3/uL (4.4-10.8)
[2020-06-27 12:44] LABS: PTT Activated 23.9 sec (21.0-27.5); Prothrombin Time 9.9 sec (9.3-11.0)
[2020-06-27 12:50] LABS: Bilirubin Negative (Negative); Blood Large (Negative); Clarity Clear (Clear); Glucose Negative (Negative); Ketones Negative (Negative); Leukocyte Esterase Negative (Negative); Nitrite Negative (Negative); Urobilinogen 0.2 EU/dL (Up TO 0.2)
[2020-06-27] MEDS: Normal Saline 1,000 ML 1000 ML IV ×2 (12:50→14:52)
[2020-06-27] MEDS: Ketorolac 30 MG/ML VIAL IVP (12:50)
[2020-06-27 12:51] LABS: ALT 48 U/L (14-59); AST 41 U/L (15-37); Albumin 3.8 g/dL (3.4-5.0); Alkaline Phosphatase 79 U/L (46-116); Anion Gap 7.2 mmol/L (3-11); BUN 10 mg/dL (7-18); Bilirubin, Total 0.2 mg/dL (0.2-1.0); CO2 26.8 mmol/L (21.0-32.0); Calcium 9.4 mg/dL (8.5-10.1); Chloride 103 mmol/L (98-107); Glucose 107 mg/dL (74-106); Potassium 3.8 mmol/L (3.5-5.1); Sodium 137 mmol/L (136-145); Total Protein 7.7 g/dL (6.4-8.2)
[2020-06-27 12:58] LABS: Bacteria Rare HPF (Negative); C & S Indicated? No; Casts Negative LPF (Negative); Crystals Negative HPF (Negative); Epithelial Cells Many HPF (Negative); Mucus Negative (Negative); WBC 0-2 HPF (0-5)
[2020-06-27] MEDS: Ondansetron 4 MG/2 ML VIAL IVP (13:22)
--- NOTE | 2020-06-27 14:30 | DI.CT_ITS ---
EXAM: CT ABDOMEN PELVIS W CLINICAL HISTORY: RLQ abd pain, r/o acute appendicitis, colitis TECHNIQUE: Imaging Protocol: Axial computed tomography images with coronal and sagittal reformatted images were created and reviewed CONTRAST MATERIAL: Intravenous: Omnipaque 350 Contrast volume:100 mL Oral: No COMPARISON: CT CT ABDOMEN PELVIS W from 02/24/2020 FINDINGS: ABDOMEN: Lung Bases: Normal where visualized. Liver: Normal density. No measurable mass. Portal, Superior Mesenteric, and Splenic Veins: Unremarkable. Gallbladder and Biliary Tract: No radiodense calculus or dilation. Pancreas: Normal density, no abnormal calcifications or inflammatory process. Spleen: Normal. Adrenals: No masses seen. Kidneys: Normal size, contour and axis. No radiodense stones or obstructive uropathy. No masses seen. Abdominal Aorta: Abdominal portion non-dilated. Bowel: No obstruction or bowel wall thickening. The appendix is normal. Peritoneal Cavity: No ascites, collection or mesenteric inflammatory response. Lymph Nodes: Within normal limits. Bones: Degenerative changes. Soft Tissues: Unremarkable. PELVIS: Bladder: Symmetric distention, no gross wall thickening. Reproductive Organs: Unremarkable as visualized. Lymph Nodes: Within normal limits. Bones: Within normal limits. IMPRESSION: 1. No evidence of an acute abdominal process. 2. Normal appendix. 3. Findings were discussed with the emergency department on the date of the examination. RADIATION DOSE DELIVERED: 1,604.61mGy.cm Total DLP DATA REPOSITORY: All CT scans at this facility are submitted to the National Radiology Data Registry (NRDR) Dose Index Registry (DIR) with the [employer] (ACR). RADIATION OPTIMIZATION: All CT scans at this facility use at least one of these dose optimization te chniques: automated exposure control; mA and/or kV adjustment per patient size (includes targeted exa ms where dose is matched to clinical indication); or iterative reconstruction.
[2020-06-27 14:31] VITALS: BP 118/72; PULSE 60; TEMP 36.8; O2SAT 100
[2020-06-27] MEDS: ACETAMINOPHEN 1,000 MG/100 ML BTL 400 MG IVPB (14:51)
[2020-06-27] MEDS: Omnipaque 350 MG/ML 100 ML BTL IJ (15:41)
[2020-06-27] MEDS: Normal Saline - Diluent 50 ML VIAL IV (15:42)
[2020-06-27] MEDS: Normal Saline Flush 10 ML SYR IVP (15:42)
== END 2020-06-27 16:34 | disposition home or self-care (01) ==
PROVIDERS: Emergency Provider Physician Assistant; PCP Nurse Practitioner Family
DX: R10.31 Right lower quadrant pain (principal)
CPT/HCPCS: 36415; 80053; 81025; 96361; 96365; 96375; 99285; 74177; 76830; 76856; 81003; 81015; 85025; 85610; 85730; 99284; J0131; J1885; J2405; J3490

== ENCOUNTER 2020-12-02 19:11 | Emergency (ER) | payer MEDICAID, SELFPAY ==
[2020-12-02 19:18] VITALS: BP 155/85; PULSE 94; RESP 18; TEMP 36.9; O2SAT 98
--- NOTE | 2020-12-02 19:30 | DI.CT_ITS ---
Exam(s) CT ABDOMEN PELVIS W EXAM: CT ABDOMEN PELVIS W CLINICAL HISTORY: Abdominal pain,vaginal bleeding Hx ovarian cyst TECHNIQUE: Imaging Protocol: Axial computed tomography images with coronal and sagittal reformatted images were created and reviewed CONTRAST MATERIAL: Intravenous: Omnipaque 350 Contrast volume:100 mL Oral: No COMPARISON: CT CT ABDOMEN PELVIS W from 06/27/2020 FINDINGS: ABDOMEN: Lung Bases: Normal where visualized. Liver: Normal density. No measurable mass. The liver measures 20 cm in length. Portal, Superior Mesenteric, and Splenic Veins: Unremarkable. Gallbladder and Biliary Tract: No radiodense calculus or dilation. Pancreas: Normal density, no abnormal calcifications or inflammatory process. Spleen: Normal. The spleen measures 13 cm in length. Adrenals: No masses seen. Kidneys: Normal size, contour and axis. No radiodense stones or obstructive uropathy. No masses seen. Abdominal Aorta: Abdominal portion non-dilated. Bowel: No obstruction or bowel wall thickening. Appendix is unremarkable. There does appear to be mil d inflammatory stranding around the junction of the descending and sigmoid colon. This may represent a mild colitis. Peritoneal Cavity: No ascites, collection or mesenteric inflammatory response. No free air. Lymph Nodes: Within normal limits. Bones: Within normal limits for the patient's age. Soft Tissues: There is a small fat containing umbilical hernia. PELVIS: Bladder: Mild thickening of the wall of the urinary bladder which may be due to underdistention. Cys titis cannot be excluded. Reproductive Organs: Unremarkable as visualized. Lymph Nodes: Within normal limits. Bones: Within normal limits for the patient's age. IMPRESSION: 1. Question of mild inflammatory stranding or at the junction of the descending and sigmoid colon. M ild colitis cannot be excluded. Please correlate clinically. 2. Mild thickening of the wall of the urinary bladder which likely is due to underdistention. Cystit is cannot be excluded. Please correlate clinically. RADIATION DOSE DELIVERED: 1,344.55mGy.cm Total DLP DATA REPOSITORY: All CT scans at this facility are submitted to the National Radiology Data Registry (NRDR) Dose Index Registry (DIR) with the [employer] (ACR). RADIATION OPTIMIZATION: All CT scans at this facility use at least one of these dose optimization te chniques: automated exposure control; mA and/or kV adjustment per patient size (includes targeted exa ms where dose is matched to clinical indication); or iterative reconstruction.
--- NOTE | 2020-12-02 19:31 | ED.GENADUL_ITS ---
Discharge Plan Disposition Patient Disposition: HOME Condition: Stable Discharge Details Clinical Impression: Menorrhagia, Ovarian cyst Primary Care Provider: Verona Colindres ED Provider: Ashley Camacho Home Meds and New Rx's Prescriptions: No Action sertraline 50 mg Tablet 125 mg PO DAILY RF: 0 Discharge Instructions Instructions: Ovarian Cyst (ED) Additional Instructions: Follow up with primary care provider in 3-5 days. Return to ED sooner if any worsening or concerns. Increase oral fluids. Please take Tylenol or Ibuprofen with food every 4-6 hours as needed for pain and swelling. Referrals: Verona Colindres [Primary Care Provider] - Medical Decision Making 35-year-old female with a history of hemorrhagic ovarian cyst presents to the ER with chief complaint of lower intermittent abdominal pain and heavy vaginal bleeding which began on Friday. Patient states that she is having her current normal menses which has been heavier than usual report passing large clots. Associated with intermittent dizziness upon standing. She is not currently on any control denies possibility of . She denies any fever, nausea vomiting, diarrhea or any other associated symptoms. Labs at this time ordered including CBC, CMP, magnesium, hCG Qual IV normal saline 1 L, Zofran 4 mg and [address] ABDOMEN PELVIS W 06/27/2020 3:31 PM FINDINGS: Liver: No focal hepatic lesion identified. Gallbladder and bile ducts: No radiodense gallbladder calculi seen. Pancreas: No CT evidence for acute pancreatitis. Spleen: Mild splenomegaly, unchanged. Adrenal glands: No mass. Kidneys and ureters: No hydronephrosis or evidence for pyelonephritis. Stomach and bowel: No intestinal obstruction is appreciated. Appendix: No evidence of appendicitis. Intraperitoneal space: No free air. Lymph nodes: Nonspecific mesenteric and retroperitoneal lymph nodes. Urinary bladder: Urinary bladder appears mildly thickened, but commensurate with degree of underdistention. Reproductive: Small low-density foci in the ovaries attributed to physiologic change/follicles. Soft tissues: Small fat containing umbilical hernia. IMPRESSION: 1. Mild bladder wall thickening, likely secondary to underdistention but cystitis not excluded. Please correlate clinically. 2. Nonacute findings as outlined above. Discussed results of labs and CT with patient verbalized understanding. Patient feels better after the Toradol medication. No evidence for UTI or infectious process. No leukocytosis. Discussed home care and follow-up with PCP, verbalized understanding. HPI General Mode of arrival: ambulatory . Date/Time Provider Initiated Documentation: 12/02/20 19:20 . Limitations to Documentation: no limitations . Information obtained by: patient . HPI Narrative: 35-year-old female with a history of hemorrhagic ovarian cyst presents to the ER with chief complaint of lower intermittent abdominal pain and heavy vaginal bleeding which began on Friday. Patient states that she is having her current normal menses which has been heavier than usual report passing large clots. Associated with intermittent dizziness upon standing. She is not currently on any control denies possibility of . She denies any fever, nausea vomiting, diarrhea or any other associated symptoms. Related Data Home Medications Medication Instructions Recorded Confirmed sertraline 125 mg PO DAILY 06/27/20 12/02/20 Allergies Allergy/AdvReac Type Severity Reaction Status Date / Time No Known Allergies Allergy Unverified 12/02/20 19:27 General Stated Complaint: Abd Prob TATYANA: 3 Review of Systems Narrative: Constitutional: Negative for weight loss, alert and oriented, well groomed, normal body habitus, appears comfortable. HEENT: Denies trauma, headaches, blurry vision, nasal discharge, sore throat, trouble swallowing. Chest: Denies chest pain, palpitations, irregular rhythm, hypertension. Respiratory: Denies Shortness of breath, cough, hemoptysis. GI: Denies nausea, vomiting, diarrhea, constipation. Positive abdominal pain. : Denies dysuria, hematuria, flank pain, rectal bleeding. Positive vaginal bleeding with clots. Neuro: Denies blurry vision, weakness, syncope, headache or facial numbness. Intermittent lightheadedness Hematologic: Denies easy bruising, intolerance to heat or cold, hair loss. [facility] Medical History Seasonal allergic rhinitis due to pollen Seasonal allergies Social History Smoking/Tobacco Use Status: Never Smoking risk assessment performed?: Yes Alcohol Intake: current Alcohol Intake frequency: holidays/special occasions only Drug use: Never Substance use type: does not use Current gender identity: female Do you feel safe at home: Yes Do you feel safe in your relationship?: Yes Exam Narrative Exam Narrative: Constitutional: Alert and oriented x3. Appears stated age. Normal body habitus. Head: Normocephalic, no trauma. Eyes: Pupils PERRLA, Red reflex noted, EOM's intact. Eyelids symmetrical without lesions, discharge, or swelling. ENT: Bilateral TM's WNL, External ear normal to inspection, no mastoid TTP, swelling, or erythema, Nasal turbinates WNL, no nasal discharge. Normal dentition, Posterior pharynx WNL, no exudate. Chest: RRR, Normal S1, S2, distal pulses intact. Resp: Lungs clear to auscultation bilaterally, no wheezes, rales, or rhonchi. Abdomen: Soft, nondistended tender to palpation left upper quadrant, bilateral suprapubic tenderness. Musculoskeletal: Normal gait, 5/5 strength to all four extremities. Skin: No suspicious rashes or lesions. Capillary refill less than 2 sec. Neurologic: Cranial nerves II-XII intact. Alert and oriented x 3. DTR's intact. Hematologic/Lymphatic: No ecchymosis, no lymphadenopathy. Course Vital Signs Vital signs: Vital Signs Temperature 36.9 C 12/02/20 19:18 Pulse 94 H 12/02/20 19:18 Respiratory Rate 18 12/02/20 19:18 Blood Pressure 155/85 H 12/02/20 19:18 Pulse Oximetry 98 12/02/20 19:18 Temperature 36.9 C 12/02/20 19:18 Temperature Source Skin 12/02/20 19:18 Pulse 94 H 12/02/20 19:18 Respiratory Rate 18 12/02/20 19:18 Respiratory Effort Non-Labored 12/02/20 19:28 Blood Pressure 155/85 H 12/02/20 19:18 Blood Pressure Position Supine 12/02/20 19:18 Pulse Oximetry 98 12/02/20 19:18 Oxygen Delivery Method Room Air 12/02/20 19:18 Oxygen Flow Rate 0 12/02/20 19:18 Pain Level 7 12/02/20 19:18
[2020-12-02] MEDS: Normal Saline 1,000 ML 1000 ML IV (19:36)
[2020-12-02] MEDS: Ondansetron 4 MG/2 ML VIAL IVP (19:37)
[2020-12-02 19:39] LABS: Abs Immature Grans 0.02 10^3/uL (0.0-0.06); Absolute Basophil Count 0.02 10^3/uL (0.0-0.2); Absolute Eosinophil Count 0.09 10^3/uL (0.0-0.7); Absolute Lymphocyte Count 3.08 10^3/uL (1.2-3.4); Absolute Monocyte Count 0.53 10^3/uL (0.1-0.8); Absolute Neutrophil Count 3.47 10^3/uL (1.2-6.7); Basophils % 0.3; Eosinophils % 1.2; HCT 37.1 % (36.0-46.0); HGB 11.8 g/dL (11.2-15.7); Immature Grans % 0.3; Lymphocytes % 42.7; MCH 25.9 pg (27.0-33.0); MCHC 31.8 % (32.0-36.0); MCV 81.5 fL (80-95); MPV 9.9 fL (8.0-11.0); Monocytes % 7.4; Neutrophils % 48.1; Nucleated RBC 0 %; Platelet Count 262 10^3/uL (130-400); RBC 4.55 10^6/uL (3.93-5.22); RDW 14.1 % (11.7-14.6); RDW-SD 41.3 fL; WBC 7.21 10^3/uL (4.4-10.8)
[2020-12-02 19:40] LABS: Bilirubin Negative (Negative); Blood Trace-intact (Negative); Clarity Clear (Clear); Glucose Negative (Negative); Ketones Negative (Negative); Leukocyte Esterase Negative (Negative); Nitrite Negative (Negative); Urobilinogen 0.2 EU/dL (Up TO 0.2)
[2020-12-02 19:50] LABS: Bacteria Negative HPF (Negative); C & S Indicated? No; Casts Negative LPF (Negative); Crystals Negative HPF (Negative); Epithelial Cells Rare HPF (Negative); Mucus Negative (Negative); Other Cells Negative (Negative); RBC 0-2 HPF (0-2); WBC Negative HPF (0-5)
[2020-12-02 19:52] LABS: ALT 33 U/L (14-59); AST 19 U/L (15-37); Albumin 3.7 g/dL (3.4-5.0); Alkaline Phosphatase 80 U/L (46-116); Anion Gap 11.2 mmol/L (3-11); BUN 11 mg/dL (7-18); Bilirubin, Total 0.2 mg/dL (0.2-1.0); CO2 26.8 mmol/L (21.0-32.0); CREATININE 0.8 mg/dL (0.55-1.02); Calcium 9.2 mg/dL (8.5-10.1); Chloride 104 mmol/L (98-107); Glucose 102 mg/dL (74-106); Lipase 160 U/L (73-393); Magnesium 1.8 mg/dL (1.8-2.4); Potassium 3.8 mmol/L (3.5-5.1); Sodium 142 mmol/L (136-145); Total Protein 7.8 g/dL (6.4-8.2)
[2020-12-02 20:00] VITALS: BP 133/81; PULSE 81; O2SAT 16
[2020-12-02 20:23] VITALS: BP 124/74; PULSE 89; RESP 16; O2SAT 99
[2020-12-02] MEDS: Omnipaque 350 MG/ML 100 ML BTL IJ (20:24)
[2020-12-02] MEDS: Normal Saline - Diluent 50 ML VIAL IV (20:25)
[2020-12-02 20:45] VITALS: BP 129/83; PULSE 90; RESP 16; O2SAT 98
[2020-12-02] MEDS: Ketorolac 30 MG/ML VIAL IVP (21:03)
[2020-12-02 21:30] VITALS: BP 132/86; PULSE 86; RESP 16; O2SAT 97
--- NOTE | 2020-12-02 21:30 | DI.VRAD_ITS ---
PROCEDURE INFORMATION: Exam: CT Abdomen And Pelvis With Contrast Exam date and time: 12/02/2020 7:38 PM Age: 35 years old Clinical indication: Patient HX: Abdominal pain, vaginal bleeding HX ovarian cyst TECHNIQUE: Imaging protocol: Computed tomography of the abdomen and pelvis with contrast. COMPARISON: CT ABDOMEN PELVIS W 06/27/2020 3:31 PM FINDINGS: Liver: No focal hepatic lesion identified. Gallbladder and bile ducts: No radiodense gallbladder calculi seen. Pancreas: No CT evidence for acute pancreatitis. Spleen: Mild splenomegaly, unchanged. Adrenal glands: No mass. Kidneys and ureters: No hydronephrosis or evidence for pyelonephritis. Stomach and bowel: No intestinal obstruction is appreciated. Appendix: No evidence of appendicitis. Intraperitoneal space: No free air. Lymph nodes: Nonspecific mesenteric and retroperitoneal lymph nodes. Urinary bladder: Urinary bladder appears mildly thickened, but commensurate with degree of underdistention. Reproductive: Small low-density foci in the ovaries attributed to physiologic change/follicles. Soft tissues: Small fat containing umbilical hernia. IMPRESSION: 1. Mild bladder wall thickening, likely secondary to underdistention but cystitis not excluded. Please correlate clinically. 2. Nonacute findings as outlined above. Dictated and Authenticated by: Dana Forde MD. Ordering:MARILIN Ramirez MD
[2020-12-02 22:04] VITALS: BP 125/75; PULSE 80; RESP 18; TEMP 36.6; O2SAT 95
== END 2020-12-02 22:05 | disposition home or self-care (01) ==
PROVIDERS: Emergency Provider Registered Nurse Emergency; PCP Nurse Practitioner Family
DX: N92.0 Excessive and frequent menstruation with regular cycle (principal); N83.291 Other ovarian cyst, right side; R42 Dizziness and giddiness; N83.292 Other ovarian cyst, left side
CPT/HCPCS: 36415; 80053; 81025; 83690; 96361; 96374; 96375; 99285; 74177; 81003; 81015; 83735; 84703; 85025; 99284; J1885; J2405; J3490

== ENCOUNTER 2020-12-06 16:45 | Outpatient (REF) | payer MEDICAID, SELFPAY ==
[2020-12-06 14:22] LABS: Iron 33 ug/dL (50-170); Total Iron Binding Capacity 405 ug/dL (250-450); Transferrin Sat 8 % (15-50)
[2020-12-06 14:33] LABS: Ferritin 22 ng/mL (8-252)
== END 2020-12-06 16:46 | disposition home or self-care (01) ==
LOC: NCHCN 16:45
PROVIDERS: PCP Nurse Practitioner Family; Visit Provider Family Medicine
DX: N92.1 Excessive and frequent menstruation with irregular cycle (principal); D64.9 Anemia, unspecified
CPT/HCPCS: 82728; 83540; 83550

== ENCOUNTER 2021-03-14 12:06 | Outpatient (REF) | payer MEDICAID, SELFPAY ==
[2021-03-15 09:50] LABS: Lyme Ab w Rflx to Lyme Confirm Negative (Negative)
== END 2021-03-14 12:07 | disposition home or self-care (01) ==
LOC: NCHCN 12:06
PROVIDERS: PCP Nurse Practitioner Family; Visit Provider Nurse Practitioner Family
DX: R29.810 Facial weakness (principal)
CPT/HCPCS: 86618

== ENCOUNTER 2021-07-30 15:53 | Emergency (ER) | payer MEDICAID, SELFPAY ==
[2021-07-30] VITALS (29 sets, daily range): BP systolic 104–138; BP diastolic 57–83; PULSE 73–94; RESP 11–25; TEMP 36.6–37.7; O2SAT 95–100
--- NOTE | 2021-07-30 15:45 | RT.EKG_ITS ---
APPROVED REPORT Exam: Resting ECG Reason for Exam: chest tightness Patient Location: E HR:94 bpm ECG Measurements Heart Rate 94 AXIS [place] 134 P 47 QRSd 94 QRS 53 QT 345 T 9 QTc 433 Conclusion Sinus rhythm...normal P axis, V-rate 60- 99
--- NOTE | 2021-07-30 16:30 | DI.RAD_ITS ---
Exam(s) XR CHEST 2V PA LATERAL EXAM: XR CHEST 2V PA LATERAL CLINICAL HISTORY: L upper chest pain TECHNIQUE: 2D digital imaging was performed of the chest. Two images were obtained. PA and lateral views were obtained. COMPARISON: CR THORACIC SPINE from 05/28/2016 FINDINGS: MEDIASTINUM: Normal. HEART: Normal. PULMONARY VASCULATURE: Normal. LUNGS: Clear. PLEURAL SPACE: No pleural effusion or pneumothorax. BONE:Within normal limits for the patient's age. OTHER FINDINGS:Normal. IMPRESSION: No acute pulmonary findings. DATA REPOSITORY: RADIATION DOSE DELIVERED:
--- NOTE | 2021-07-30 16:33 | ED.GENADUL_ITS ---
Discharge Plan Disposition Patient Disposition: HOME Condition: Improving Discharge Details Chief Complaint: Chest Pain Clinical Impression: Left-sided chest wall pain Primary Care Provider: Verona Colindres ED Provider: Marco Antonio Woods Home Meds and New Rx's Prescriptions: No Action No Known Home Meds RF: 0 Discharge Instructions Instructions: Chest Wall Pain (ED) Additional Instructions: Your work-up in the emergency department included EKG, laboratories, chest x-ray and a CT scan of the chest. Please continue ibuprofen 600 to 800 mg every 6-8 hours as needed for discomfort. Return to the emergency part if you develop a rash, increased pain, difficulty breathing, or any other acute concerns. Medical Decision Making 36yof with pleuritic chest pain that began after a normal nights sleep last night. She states is primarily with breathing. She is not tachycardic or hypoxic. No lower extremity pain or swelling and she is not on oral contraceptives. Her exam is reassuring with differential diagnosis would include acute coronary syndrome or spasm, PE, pleurisy, atypical chest pain or chest wall muscular pain. Patient IV access established, maintenance fluids initiated, referred for EKG, chest x-ray and screening laboratories. The patient's diagnostic studies noted unremarkable CBC. Reassuring chemistries. Negative troponin. D-dimer slightly elevated at 505. Chest x-ray unremarkable. Given the pleuritic pain and positive D-dimer, the patient was referred for CT of the chest. This shows no acute findings. Clear lungs and pleural space, no PE. Please see formal report. Patient was observed on a manager cardiac cath and repeat troponin obtained and negative. Discussed with her treatment for muscular strain. She is stable and appropriate for outpatient management. She understands indications to seek repeat evaluation. [facility] General Mode of arrival: ambulatory . Date/Time Provider Initiated Documentation: 07/30/21 15:54 . Limitations to Documentation: no limitations . Information obtained by: patient . History of Present Illness 36 year old F presents to the emergency department with the chief complaint of L upper chest pain, shoulder pain yesterday, described as mild, and is localized to the chest. Patient reports no radiation. Patient started experiencing this hour(s) and it has been intermittent. Rest improves symptom(s), Other factors that worsen symptoms (deep breath) . Patient notes chest pain; denies fever/chills and syncope. Patient did receive the following treatments prior to arrival, none Related Data Home Medications Medication Instructions Recorded Confirmed Unknown [No Known Home Meds] 07/30/21 07/30/21 Allergies Allergy/AdvReac Type Severity Reaction Status Date / Time No Known Allergies Allergy Unverified 07/30/21 16:33 General Stated Complaint: Chest Pain TATYANA: 3 Review of Systems Narrative: Immunized against COVID. REcently well. No leg pain or swelling. No OCP's, states she is unsure of family hx. 8 systems reviewed PFSH All Active Problems (Updated 07/30/21 @ 20:03 by Marco Antonio Woods MD) Menorrhagia (Acute) Ovarian cyst (Acute) Left-sided chest wall pain (Acute) Vaginal discharge (Acute) Bacterial vaginosis (Acute) Hemorrhagic ovarian cyst (Acute) Left lower quadrant abdominal pain (Acute) Carpal tunnel syndrome on right (Acute) Delivery normal (Active 10/09/12) Medical History Seasonal allergic rhinitis due to pollen Seasonal allergies Social History Smoking/Tobacco Use Status: Never Smoking risk assessment performed?: Yes Alcohol Intake: current Alcohol Intake frequency: holidays/special occasions only Drug use: Never Substance use type: does not use Current gender identity: female Do you feel safe at home: Yes Do you feel safe in your relationship?: Yes Exam Narrative Exam Narrative: GEN: awake, alert, oriented 3. Pleasant, well groomed, interactive. HEAD: Normocephalic, atraumatic ENT: Mucous membranes moist, oropharynx unremarkable, External ear exam unremarkable EYES: PERRL, EOMI NECK: Full ROM, no SAYDA, no menigismus CHEST/RESP: Nontender, clear to auscultation bilateral, no wheeze/rhonchi/rales CARDIOVASCULAR: RRR, no murmur, rub elke. 2+ Rad pulse bilateral ABDOMEN: Soft, nontender, no mass. +Bowel sounds EXT: Full ROM, no edema, no rash Neuro: Grossly normal neurologic exam, conversant, interactive. Psych: Speech fluent, thoughts congruent, affect anxious no masses, Course Vital Signs Vital signs: Vital Signs Temperature 37.7 C H 07/30/21 16:07 Pulse 93 H 07/30/21 16:07 Respiratory Rate 18 07/30/21 16:07 Blood Pressure 138/83 07/30/21 16:07 Pulse Oximetry 100 07/30/21 16:07 Temperature 37.7 C H 07/30/21 16:07 Temperature Source Tympanic 07/30/21 16:07 Pulse 93 H 07/30/21 16:07 Respiratory Rate 18 07/30/21 16:07 Respiratory Effort Non-Labored 07/30/21 16:11 Respiratory Depth Normal 07/30/21 16:11 Respiratory Pattern Normal 07/30/21 16:11 Blood Pressure 138/83 07/30/21 16:07 Blood Pressure Position Supine 07/30/21 16:07 Pulse Oximetry 100 07/30/21 16:07 Oxygen Delivery Method Room Air 07/30/21 16:07 Oxygen Flow Rate 0 07/30/21 16:07 Pain Level 5 07/30/21 16:07
[2021-07-30 16:52] LABS: Abs Immature Grans 0.02 10^3/uL (0.0-0.06); Absolute Basophil Count 0.04 10^3/uL (0.0-0.2); Absolute Eosinophil Count 0.11 10^3/uL (0.0-0.7); Absolute Lymphocyte Count 2.91 10^3/uL (1.2-3.4); Absolute Monocyte Count 0.52 10^3/uL (0.1-0.8); Absolute Neutrophil Count 4.98 10^3/uL (1.2-6.7); Basophils % 0.5; Eosinophils % 1.3; HCT 42.2 % (36.0-46.0); HGB 14.1 g/dL (11.2-15.7); Immature Grans % 0.2; Lymphocytes % 33.9; MCH 28.1 pg (27.0-33.0); MCHC 33.4 % (32.0-36.0); MCV 84.1 fL (80-95); MPV 9.6 fL (8.0-11.0); Monocytes % 6.1; Nucleated RBC 0 %; Platelet Count 266 10^3/uL (130-400); RBC 5.02 10^6/uL (3.93-5.22); RDW 12.8 % (11.7-14.6); WBC 8.58 10^3/uL (4.4-10.8)
[2021-07-30] MEDS: ACETAMINOPHEN 1,000 MG/100 ML BTL 400 MG IVPB (17:03)
[2021-07-30 17:10] LABS: ALT 45 U/L (14-59); AST 26 U/L (15-37); Albumin 4.1 g/dL (3.4-5.0); Alkaline Phosphatase 83 U/L (46-116); Anion Gap 11.4 mmol/L (3-11); BUN 12 mg/dL (7-18); Bilirubin, Total 0.3 mg/dL (0.2-1.0); CO2 27.6 mmol/L (21.0-32.0); Chloride 101 mmol/L (98-107); Glucose 102 mg/dL (74-106); Magnesium 1.8 mg/dL (1.8-2.4); Potassium 3.8 mmol/L (3.5-5.1); Sodium 140 mmol/L (136-145); Total Protein 8.3 g/dL (6.4-8.2); Troponin I < 50 ng/L (<or=60)
[2021-07-30 17:23] LABS: CREATININE 0.8 mg/dL (0.55-1.02); Calcium 9.6 mg/dL (8.5-10.1)
[2021-07-30 17:25] LABS: D-Dimer 505 ng/mlFEU (<500)
--- NOTE | 2021-07-30 17:30 | DI.CT_ITS ---
Exam(s) CT CHEST PE CTA EXAM: CT CHEST PE CTA CLINICAL HISTORY: L upper chest pain. TECHNIQUE: Imaging Protocol: Axial CT angiography was performed with multi-slice acquisition and mu lti-planar and/or 3D reconstructions. CONTRAST MATERIAL: Intravenous: Omnipaque 350 Contrast volume:100 mL COMPARISON: CT CT ABDOMEN PELVIS W from 12/02/2020 FINDINGS: Tracheobronchial tree: Patent where visualized. Pulmonary parenchyma: No consolidation or dominant measurable mass. No architectural distortion. Pulmonary Arteries: No evidence of filling defect to suggest pulmonary emboli. Mediastinum and Ade: No dominant adenopathy or fluid collection. The esophagus is unremarkable. Visualized thyroid gland: Unremarkable. Pleura: No effusion or pneumothorax. Heart: The heart is not dilated. No coronary artery calcifications are seen. No pericardial effusion. Aorta: Thoracic aorta non-dilated. No evidence of dissection. Upper abdomen: Unremarkable. The spleen is at the upper limits of normal measuring 12.4 cm. Soft tissues: Unremarkable. Bones: Within normal limits for the patient's age. IMPRESSION: No evidence of pulmonary embolism, thoracic aortic dissection or aneurysm. RADIATION DOSE DELIVERED: 688.13mGy.cm Total DLP DATA REPOSITORY: All CT scans at this facility are submitted to the National Radiology Data Registry (NRDR) Dose Index Registry (DIR) with the [employer] (ACR). RADIATION OPTIMIZATION: All CT scans at this facility use at least one of these dose optimization te chniques: automated exposure control; mA and/or kV adjustment per patient size (includes targeted exa ms where dose is matched to clinical indication); or iterative reconstruction.
--- NOTE | 2021-07-30 17:58 | DI.VRAD_ITS ---
PROCEDURE INFORMATION: Exam: XR Chest Exam date and time: 07/30/2021 4:34 PM Age: 36 years old Clinical indication: Pain; Left-sided TECHNIQUE: Imaging protocol: XR of the chest. Views: 2 views. COMPARISON: CT ABDOMEN PELVIS W 12/02/2020 8:21 PM FINDINGS: Lungs: Clear lungs. Pleural spaces: No pneumothorax. No sizable pleural effusion. Heart/Mediastinum: No cardiomegaly. Bones/joints: Unremarkable. IMPRESSION: Clear lungs. Dictated and Authenticated by: Quinton Case MD. Ordering:SHERON Bernard MD
[2021-07-30] MEDS: Omnipaque 350 MG/ML 100 ML BTL IJ (18:43)
[2021-07-30] MEDS: Normal Saline Flush 10 ML SYR IVP (18:44)
--- NOTE | 2021-07-30 19:15 | RT.EKG_ITS ---
APPROVED REPORT Exam: Resting ECG Reason for Exam: REPEAT EKG Patient Location: E HR:84 bpm ECG Measurements Heart Rate 84 AXIS NE 153 P 43 QRSd 85 QRS 32 QT 373 T 6 QTc 440 Conclusion Sinus rhythm...normal P axis, V-rate 60- 99
--- NOTE | 2021-07-30 19:19 | DI.VRAD_ITS ---
PROCEDURE INFORMATION: Exam: CTA Chest With Contrast Exam date and time: 07/30/2021 5:45 PM Age: 36 years old Clinical indication: Left-sided; Patient HX: L upper chest pain TECHNIQUE: Imaging protocol: Computed tomographic angiography of the chest with contrast. 3D rendering (Not supervised by radiologist): MIP and/or 3D reconstructed images were created by the technologist. Radiation optimization: All CT scans at this facility use at least one of these dose optimization techniques: automated exposure control; mA and/or kV adjustment per patient size (includes targeted exams where dose is matched to clinical indication); or iterative reconstruction. Contrast material: OMNIPAQUE 350; Contrast volume: 100 ml; Contrast route: INTRAVENOUS (IV); COMPARISON: CR XR CHEST 2V PA LATERAL 07/30/2021 5:22 PM FINDINGS: Pulmonary arteries: Normal. No pulmonary emboli. Aorta: Unremarkable. No aortic aneurysm. No aortic dissection. Lungs: Unremarkable. No consolidation. No masses. Pleural spaces: Unremarkable. No pneumothorax. No pleural effusion. Heart: Unremarkable. No cardiomegaly. No pericardial effusion. Lymph nodes: Unremarkable. No enlarged lymph nodes. Diaphragm: Small hiatal hernia. No acute edema Spleen: Nonspecific mild splenomegaly. Bones/joints: Unremarkable. No acute fracture. Soft tissues: Unremarkable. IMPRESSION: 1. No acute findings. 2. Clear lungs and pleural space. 3. No pulmonary arterial embolism. 4. Thoracic aorta is unremarkable in course and caliber. 5. Chest wall soft tissues and skeletal structures are unremarkable in appearance. 6. Nonspecific mild splenomegaly Dictated and Authenticated by: Nico Carson MD. Ordering:SHERON Bernard MD
[2021-07-30] MEDS: Ketorolac 15 MG/ML VIAL IVP (19:41)
[2021-07-30 19:54] LABS: Troponin I < 50 ng/L (<or=60)
== END 2021-07-30 20:12 | disposition home or self-care (01) ==
PROVIDERS: Emergency Provider Emergency Medicine; PCP Nurse Practitioner Family
DX: R07.89 Other chest pain (principal); R07.1 Chest pain on breathing
CPT/HCPCS: 36415; 71275; 80053; 81025; 93005; 96374; 96375; 99285; 71046; 83735; 84484; 85025; 85379; 93010; 99284; J0131; J1885; J3490

== ENCOUNTER 2021-11-03 09:19 | Emergency (ER) | payer MEDICAID, SELFPAY ==
[2021-11-03 09:30] VITALS: BP 127/78; PULSE 112; RESP 16; TEMP 38.2; O2SAT 98
--- NOTE | 2021-11-03 09:36 | ED.GENADUL_ITS ---
Discharge Plan Disposition Patient Disposition: HOME Condition: Stable Discharge Details Clinical Impression: COVID-19 Primary Care Provider: Verona Colindres ED Provider: Angella Marshall Home Meds and New Rx's Prescriptions: New Paxlovid (EUA) 150 mg x 2- 100 mg tablet See Rx Instructions PO .COMPLEX Qty: 6 0RF Rx Instructions: orally per package directions Discharge Instructions Instructions: COVID-19 (Coronavirus Disease 2019) (ED) Additional Instructions: Drink plenty of fluids and get plenty of rest. Alternate tylenol and motrin as needed and directed for pain. A prescription for the antiviral medication Paxlovid has been sent electronically to your pharmacy. Take this as directed until finished. Follow-up with your primary care doctor in 1 week. Return to the emergency department with any worsening or new concerning symptoms such as shortness of breath, persistent chest pain, persistent vomiting or any other concerns. Discharge Data Discharge Physician: Angella Marshall Medical Decision Making 36yo F diagnosed with COVID yesterday presents w/ a c/o cough, sore throat, bodyaches, fever, and headache since last night. Temp 100.7 on arrival. Heart rate decreased to 104. Oxygen saturation 99% on room air. Given a dose of tylenol. Patient coughing frequently throughout exam. She otherwise appears comfortable, nontoxic without signs of respiratory distress. Renal function from July 2021 noted a GFR greater than 60. I do not suspect any impaired renal function and believes she can meet criteria for Paxlovid due to her obesity. A prescription for Paxlovid is sent electronically to her pharmacy. Do not see indication do not see an indication for lab work or imaging at this time. Although she has a fever and cough, with normal oxygen saturation and no shortness of breath, do not see indication for chest x-ray. History and presentation does not appear consistent with PE at this time. She was advised to she was advised to purchase an [id number] pulse oximeter to monitor her oxygen saturation if she becomes short of breath. Discussed that if her symptoms were to significantly worsen with shortness of breath or pleuritic chest pain to return immediately to the emergency department for further evaluation at that time. Medical Records Medical records reviewed: Yes I reviewed the patient's medical records. HPI General Mode of arrival: ambulatory . Date/Time Provider Initiated Documentation: 11/03/21 09:35 . Limitations to Documentation: no limitations . Information obtained by: patient . HPI Narrative: Patient is a 36-year-old female who presents to the ED with complaints of fever, cough, sore throat, headache and body aches since yesterday. Patient states she was on a school trip recently and multiple children tested positive and she was screened yesterday and was noted to have a fever and her rapid COVID test was positive. She states since then she has developed cough, sore throat, headache and body aches. She took ibuprofen at 730 this morning. She denies any significant shortness of breath but states that she feels she has a hard time breathing with coughing. She admits to nausea with coughing as well. She denies any vomiting, diarrhea. Related Data Home Medications Medication Instructions Recorded Confirmed nirmatrelvir 300 mg (150 mg x See Rx Instructions PO .COMPLEX #6 11/03/21 2)-ritonavir 100 mg tablet (EUA) tabs (Paxlovid 300 mg () Previous Rx's Medication Instructions Recorded nirmatrelvir 300 mg (150 mg x See Rx Instructions PO .COMPLEX #6 11/03/21 2)-ritonavir 100 mg tablet (EUA) tabs (Paxlovid 300 mg () Allergies Allergy/AdvReac Type Severity Reaction Status Date / Time No Known Allergies Allergy Unverified 11/03/21 09:35 General Stated Complaint: RespSymp TATYANA: 3 Review of Systems All systems reviewed & are unremarkable except as noted in HPI and below Constitutional Constitutional: Denies chills, Denies excessive sweating, Denies fatigue, Denies fever(s), Denies weakness and Denies weight loss Eyes Eyes: Reports system reviewed and no additional complaints, except as documented and Denies blurry vision ENT Ears, Nose, Mouth, and Throat: Denies vertigo, Denies dizziness, Denies otalgia, Denies nasal congestion, Reports sore throat and Denies throat swelling Cardiovascular Cardiovascular: Denies chest pain, Denies syncope, Denies rapid heart rate and Denies dyspnea Respiratory Respiratory: Denies chest congestion, Reports cough, Denies pain on inspiration and Denies dyspnea Gastrointestinal Gastrointestinal: Denies abdominal pain, Denies diarrhea and Denies vomiting Genitourinary Genitourinary: Denies hematuria, Denies dysuria and Denies flank pain Musculoskeletal Musculoskeletal: Denies back pain and Denies joint swelling Integumentary/Breasts Skin/Breast: Denies lesions and Denies rash Neurologic Neurologic: Denies behavioral changes, Denies confusion, Denies vertigo, Denies dizziness, Denies syncope, Denies localized weakness and Denies weakness Psychiatric Psychiatric: Denies behavioral changes, Denies confusion and Denies depression Endocrine Endocrine: Denies excessive sweating and Denies fatigue Hematologic/Lymphatic Hematologic/Lymphatic: Denies easy bruising and Denies lymphadenopathy Allergic/Immunologic Allergic/Immunologic: Denies throat swelling PFSH All Active Problems (Updated 11/03/21 @ 10:28 by Angella Marshall, DO) Menorrhagia (Acute) Ovarian cyst (Acute) COVID-19 (Acute) Vaginal discharge (Acute) Bacterial vaginosis (Acute) Hemorrhagic ovarian cyst (Acute) Left lower quadrant abdominal pain (Acute) Carpal tunnel syndrome on right (Acute) Delivery normal (Active 10/09/12) Medical History Seasonal allergic rhinitis due to pollen Seasonal allergies Social History Smoking/Tobacco Use Status: Never Smoking risk assessment performed?: Yes Alcohol Intake: current Alcohol Intake frequency: holidays/special occasions only Drug use: Never Substance use type: does not use Current gender identity: female Do you feel safe at home: Yes Do you feel safe in your relationship?: Yes Exam Const General: cooperative and healthy appearing Orientation: alert and awake HENMT Head: normal to inspection Ears: hearing grossly normal bilaterally, external ears normal and TM's normal bilaterally General nose exam: external nose normal Face and sinus: normal facial exam Mouth: oral mucosae normal Teeth and gingiva: dentition normal Throat: posterior oropharynx normal Eyes General: appearance normal, both eyes and all related structures Eyelids: eyelids normal Pupils: PERRL EOM: EOM intact bilaterally Neck Neck: normal visual inspection Lymphatic: no lymphadenopathy noted Chest Chest: normal inspection of the chest Resp Effort & Inspection: normal respiratory effort and able to speak in complete sentences Auscultation: clear to auscultation bilaterally Cardio Rate: regular rate Rhythm: regular rhythm GI Inspection: normal to inspection Palpation: soft, not firm, no guarding, no hepatosplenomegaly, no masses and nontender Auscultation: normal bowel sounds Back/Spine/Pelvis Back: no CVA tenderness Skin General skin exam: no rashes or lesions noted Neuro General: patient alert and patient awake Cognition: normal cognition Speech: speech normal Gait: normal gait Motor: muscle tone normal throughout Sensory Exam: no sensory deficits noted Extrem General: normal to inspection, full ROM and capillary refill normal Psych Appearance: grossly normal Mental Status: mental status grossly normal Speech and Movement: speech and movement normal Affect: normal affect Thought Process: normal Course Vital Signs Vital signs: Vital Signs Temperature 101 F H 11/03/21 09:30 Pulse 112 H 11/03/21 09:30 Respiratory Rate 16 11/03/21 09:30 Blood Pressure 127/78 11/03/21 09:30 Pulse Oximetry 98 11/03/21 09:30 Temperature 101 F H 11/03/21 09:30 Temperature Source Oral 11/03/21 09:30 Pulse 112 H 11/03/21 09:30 Respiratory Rate 16 11/03/21 09:30 Respiratory Effort 11/03/21 09:30 Blood Pressure 127/78 11/03/21 09:30 Blood Pressure Position Sitting 11/03/21 09:30 Pulse Oximetry 98 11/03/21 09:30 Oxygen Delivery Method Room Air 11/03/21 09:30 Oxygen Flow Rate 0 11/03/21 09:30 Pain Level 4 11/03/21 09:30
[2021-11-03] MEDS: Acetaminophen 500 MG TAB 1000 MG PO (10:22)
== END 2021-11-03 10:35 | disposition home or self-care (01) ==
PROVIDERS: Emergency Provider Physician Assistant; PCP Nurse Practitioner Family
DX: U07.1 COVID-19 (principal); R50.9 Fever, unspecified; R51.9 Headache, unspecified
CPT/HCPCS: 99283

== ENCOUNTER 2022-10-11 12:15 | Outpatient (REF) | payer MEDICAID, SELFPAY ==
--- NOTE | 2022-10-11 10:25 | PAPFT_PTH ---
PATIENT: Melissa Carter LOC: [facility]#:[id number] AGE/SX: 37/F ROOM: RE10/11/[address]: Amber Montgomery : 1985 BED: DIS: 10/11/2022 SPEC #: [id number] RECD: 10/11/22 17:09 STATUS: DAVID REOrly #: [id number] DARRYL: 10/11/22 10:[address]: Amber Montgomery DEPT: [facility] Cytology RECD BY: Dorothy Meredith ENTERED: 10/11/22 17:10 SP TYPE: PAPFT OTHR DR: Verona Colindres Tissues: 1 - CX/ENDOCX FOR PAP SMEARS Procedures: PAP THIN PREP/UVM Screening HPV DNA PROBE Comments: [id number]
== END 2022-10-11 12:16 | disposition home or self-care (01) ==
LOC: NCHCN 12:15
PROVIDERS: PCP Nurse Practitioner Family; Visit Provider Nurse Practitioner Family
DX: Z12.4 Encounter for screening for malignant neoplasm of cervix (principal); Z11.51 Encounter for screening for human papillomavirus (HPV)
CPT/HCPCS: 88142; 87624

== ENCOUNTER 2024-03-28 08:21 | Emergency (ER) | payer MEDICAID, SELFPAY ==
[2024-03-28 08:27] VITALS: BP 152/67; PULSE 89; RESP 18; TEMP 36.2; O2SAT 96
[2024-03-28 08:31] VITALS: BP 152/67; PULSE 89; RESP 18; TEMP 36.2; O2SAT 96
--- NOTE | 2024-03-28 08:45 | W.ED.GENAD ---
Discharge Plan Disposition Patient Disposition: Home Condition: Good Discharge Details Clinical Impression: URI (upper respiratory infection) Primary Care Provider: Verona Colindres ED Provider: Ayanna Raphael Home Meds and New Rx's Prescriptions: Continued melatonin 10 mg capsule 10 mg PO HS PRN No Action Paxlovid 150 mg x 2- 100 mg tablet See Rx Instructions PO .COMPLEX Qty: 6 0RF Rx Instructions: orally per package directions Discharge Instructions Instructions: Viral Upper Respiratory Infection, Adult (DC) Additional Instructions: You are negative for flu and COVID here today. Your exam is reassuring, I do not see any evidence to suggest a bacterial infection or bacterial pneumonia. This is likely viral. Please continue to encourage hydration. Tylenol and ibuprofen as needed for discomfort or fevers. Please follow-up with primary care in 1 to 2 weeks. If you develop shortness of breath, difficulty breathing, inability stay hydrated or other new/worsening symptoms please seek care urgently once again. May use honey to help with cough and sore throat. Referrals: Verona Colindres [Primary Care Provider] - [facility] General Date/Time Provider Initiated Documentation: 03/28/24 08:45. Limitations to Documentation: no limitations. Information obtained by: patient, family and RN notes reviewed. History of Present Illness 38 year old F presents to the emergency department with the chief complaint of cough, congestion, malaise, described as moderate, Patient started experiencing this day(s) (5) and it has been constant. No relieving factors improve symptom(s), No exacerbating factors reported . Patient notes cough, loss of appetite and malaise; denies fever/chills, nausea/vomiting, rash and shortness of breath. Patient did receive the following treatments prior to arrival, other (takes PM cold med which helped her fall asleep) Related Data Home Medications ?Medication ?Instructions ?Recorded ?Confirmed nirmatrelvir 300 mg (150 mg See Rx Instructions PO .COMPLEX #6 11/03/21 03/28/24 x2)-ritonavir 100 mg tablet,dose tabs pack (Paxlovid) melatonin 10 mg capsule 10 mg PO HS PRN 03/28/24 03/28/24 Previous Rx's ?Medication ?Instructions ?Recorded nirmatrelvir 300 mg (150 mg See Rx Instructions PO .COMPLEX #6 11/03/21 x2)-ritonavir 100 mg tablet,dose tabs pack (Paxlovid) Allergies Allergy/AdvReac Type Severity Reaction Status Date / Time No Known Allergies Allergy Unverified 03/28/24 08:30 General Stated Complaint: RespSymp TATYANA: 4 Review of Systems Constitutional Constitutional: Reports as per HPI and Denies headache(s) Eyes Eyes: Reports as per HPI, Denies eye discharge and Denies irritation ENT Ears, Nose, Mouth, and Throat: Reports as per HPI and Denies headache(s) Cardiovascular Cardiovascular: Reports as per HPI, Denies chest pain and Denies dyspnea Respiratory Respiratory: Reports as per HPI and Denies dyspnea Gastrointestinal Gastrointestinal: Reports as per HPI, Denies abdominal pain, Denies change in bowel habits, Denies nausea and Denies vomiting Integumentary/Breasts Skin/Breast: Reports as per HPI and Denies rash Neurologic Neurologic: Reports as per HPI and Denies headache(s) Exam Const General: cooperative, healthy appearing, comfortable, no acute distress, well developed and well groomed Nutritional Appearance: well nourished and overweight Orientation: alert and awake [facility] Head: normal to inspection, normocephalic and atraumatic Ears: hearing grossly normal bilaterally, external ears normal and TM's normal bilaterally General nose exam: external nose normal and nares normal Face and sinus: normal facial exam, sinuses nontender and face symmetric Mouth: oral mucosae normal, lip normal, tongue normal, oropharynx normal and moist mucous membranes Teeth and gingiva: dentition normal Throat: posterior oropharynx normal, tonsils normal and uvula midline Eyes General: appearance normal, both eyes and all related structures Neck Neck: normal visual inspection, full ROM, no lymphadenopathy and no meningeal signs Resp Effort & Inspection: normal respiratory effort, able to speak in complete sentences and no respiratory distress Auscultation: clear to auscultation bilaterally, no rales, no rhonchi and no wheezes Cardio Rate: regular rate Rhythm: regular rhythm Heart Sounds: S1 normal and S2 normal Skin General skin exam: no rashes or lesions noted Neuro General: patient alert and patient awake Cognition: normal cognition Speech: speech normal Gait: normal gait Psych Appearance: grossly normal and well kempt Mental Status: mental status grossly normal Speech and Movement: speech and movement normal Course Vital Signs Vital signs: Vital Signs Temperature 36.2 C L 10/06/24 08:27 Pulse 89 03/28/24 08:27 Respiratory Rate 18 03/28/24 08:27 Blood Pressure 152/67 H 03/28/24 08:27 Pulse Oximetry 96 03/28/24 08:27 Temperature 36.2 C L 03/28/24 08:31 Pulse 89 03/28/24 08:31 Respiratory Rate 18 03/28/24 08:31 Respiratory Effort Short of Breath 03/28/24 08:44 Respiratory Depth Normal 03/28/24 08:44 Blood Pressure 152/67 H 03/28/24 08:31 Blood Pressure Position Sitting 03/28/24 08:31 Pulse Oximetry 96 03/28/24 08:31 Oxygen Delivery Method Room Air 03/28/24 08:31 Oxygen Flow Rate 0 03/28/24 08:31 Pain Level 0 03/28/24 08:31 Medical Decision Making Patient is a pleasant 38-year-old female, accompanied by son, with chief complaint of 5 days of upper respiratory symptoms including cough, congestion, sore throat, malaise. Endorses other sick contacts, including son. She denies any GI upset but reports decreased appetite. No shortness of breath. Denies any chest pain. No change in bowel or bladder habits. No rashes. On exam, patient appears nontoxic. SHe is resting comfortably no acute distress. Cardiac exam is normal. HEENT exam without any significant abnormalities. Geographic tongue. Lungs are clear in all [place] with no wheezes rales or rhonchi. Primary concern that had initially brought htem in was for pneumonia as another member of family was recently diagnosed with this. I do not note any findings to suggest a bacterial pneumonia at this time. More likely to be viral illness. Will test for COVID and flu. I do not see need for imaging at this time. Negative flu and COVID. Discussed these findings with patient. Advised likely viral etiology. Again, her exam and history were consistent with viral etiology rather than bacterial source. Do not see indication for antibiotics at this point. We discussed supportive care. Discussed return precautions. Encouraged follow-up with primary care. All of her questions and concerns were addressed and she is in agreement's plan. Quality:SDOH Health Related Social Needs: No Data to Display PFSH All Active Problems (Updated 03/28/24 @ 09:37 by RIP Kaba) URI (upper respiratory infection) (Acute) COVID-19 (Acute) Ovarian cyst (Acute) Menorrhagia (Acute) Vaginal discharge (Acute) Bacterial vaginosis (Acute) Hemorrhagic ovarian cyst (Acute) Left lower quadrant abdominal pain (Acute) Carpal tunnel syndrome on right (Acute) Delivery normal (Active 10/09/12) Medical History Seasonal allergic rhinitis due to pollen Seasonal allergies Social History Smoking/Tobacco Use Status: Never Smoking risk assessment performed?: Yes Alcohol Intake: current Alcohol Intake frequency: holidays/special occasions only Drug use: Never Substance use type: does not use Current gender identity: female Do you feel safe at home: Yes Do you feel safe in your relationship?: Yes
== END 2024-03-28 09:47 | disposition home or self-care (01) ==
PROVIDERS: Emergency Provider Physician Assistant; PCP Nurse Practitioner Family
DX: J06.9 Acute upper respiratory infection, unspecified (principal)
CPT/HCPCS: 87426; 99283

== ENCOUNTER 2024-08-30 11:42 | Outpatient (CLI) | payer MEDICAID, SELFPAY ==
--- NOTE | 2024-08-30 10:03 | DI.RAD_ITS ---
Exam(s) XR CHEST 2V PA LATERAL EXAM: XR CHEST 2V PA LATERAL CLINICAL HISTORY: Cough, R05.9 TECHNIQUE: 2D digital imaging was performed of the chest. Two images were obtained. PA and lateral views were obtained. COMPARISON: CR,XR XR CHEST 2V PA LATERAL from 07/30/2021 FINDINGS: MEDIASTINUM: Normal. HEART: Normal. PULMONARY VASCULATURE: Normal. LUNGS: Clear. PLEURAL SPACE: No pleural effusion or pneumothorax. BONE:Within normal limits for the patient's age. OTHER FINDINGS:Normal. IMPRESSION: No acute pulmonary findings. DATA REPOSITORY: RADIATION DOSE DELIVERED:
== END 2024-08-30 12:02 ==
LOC: DI 11:42
PROVIDERS: PCP Nurse Practitioner Family; Visit Provider Nurse Practitioner Family
DX: R05.9 Cough, unspecified (principal)
CPT/HCPCS: 71046

== ENCOUNTER 2024-12-23 14:31 | Outpatient (REF) | payer BC, SELFPAY ==
[2024-12-23 15:44] LABS: ALT 28 U/L (14-59); AST 19 U/L (15-37); Alkaline Phosphatase 86 U/L (46-116); Anion Gap 9.4 mmol/L (3-11); Bilirubin, Total 0.4 mg/dL (0.2-1.0); CO2 27.6 mmol/L (21.0-32.0); Calcium 9.5 mg/dL (8.5-10.1); Chloride 104 mmol/L (98-107); Cholesterol 204 mg/dL (<200); Estimated GFR 113.46 (mL/min/1.73m2); Glucose 96 mg/dL (74-106); Potassium 4.1 mmol/L (3.5-5.1); Sodium 141 mmol/L (136-145); TSH (W/Ref FT4) 2.48 uIU/mL (0.36-3.74); Total Protein 7.6 g/dL (6.4-8.2); Triglyceride 87 mg/dL (<150)
[2024-12-23 16:01] LABS: Hemoglobin A1C 5.4 % (<5.7)
[2024-12-23 16:08] LABS: Albumin 4.2 g/dL (3.4-5.0); BUN 8 mg/dL (7-18); Calculated LDL 138 mg/dL (<100); HDL Cholesterol 49 mg/dL (>or=50)
== END 2024-12-23 14:32 | disposition home or self-care (01) ==
LOC: NCHCN 14:31
PROVIDERS: PCP Nurse Practitioner Family; Visit Provider Family Medicine
DX: E66.9 Obesity, unspecified (principal)
CPT/HCPCS: 80053; 80061; 83036; 84443

== ENCOUNTER 2025-03-03 09:41 | Emergency (ER) | payer BC, SELFPAY ==
--- NOTE | 2025-03-03 09:30 | RT.EKG_ITS ---
APPROVED REPORT Exam: Resting ECG Reason for Exam: Dizziness Patient Location: E HR:78 bpm ECG Measurements Heart Rate 78 AXIS OH 137 P 28 QRSd 91 QRS 37 QT 364 T 14 QTc 414 Conclusion Sinus rhythm, rate 78 No interval abnormalities No STEMI Isolated T wave inversion lead III, unchanged from priors
[2025-03-03 09:48] VITALS: BP 160/106; PULSE 84; PULSE 86; PULSE 97; RESP 14; RESP 16; TEMP 36.8; O2SAT 100
[2025-03-03 10:02] VITALS: BP 120/65; PULSE 76; PULSE 84; RESP 16; O2SAT 99
[2025-03-03 10:15] VITALS: BP 125/69; PULSE 78; PULSE 80; RESP 16; O2SAT 99
[2025-03-03] MEDS: Normal Saline 1,000 ML 1000 ML IV (10:45)
--- NOTE | 2025-03-03 10:45 | DI.RAD_ITS ---
Exam(s) XR ABDOMEN FLAT UPRIGHT EXAM: XR ABDOMEN FLAT UPRIGHT CLINICAL HISTORY: abd pain, constipation. TECHNIQUE: 2D digital imaging was performed. COMPARISON: No exams were available for comparison FINDINGS: 3 views Visualized lung bases are clear. The abdomen the bowel gas pattern is nonspecific. Stomach is not distended. There is a moderate amount of fecal material noted in the colon. No evidence of bowel obstruction nor free air. No abnormal calcifications evident. Regional bones appear unremarkable. IMPRESSION: Nonspecific bowel gas pattern. DATA REPOSITORY: RADIATION DOSE DELIVERED:
[2025-03-03] MEDS: Prochlorperazine 10 MG/2 ML VIAL IVP (10:46)
[2025-03-03 10:50] VITALS: BP 117/67; PULSE 81; PULSE 87; RESP 15; O2SAT 99
[2025-03-03 10:59] LABS: Abs Immature Grans 0.02 10^3/uL (0.0-0.06); HCT 38.5 % (36.0-46.0); HGB 12.5 g/dL (11.2-15.7); Immature Grans % 0.4 %; MCH 25.7 pg (27.0-33.0); MCHC 32.5 % (32.0-36.0); MCV 79 fL (80-95); MPV 10.4 fL (8.0-11.0); Platelet Count 224 10^3/uL (130-400); RBC 4.87 10^6/uL (3.93-5.22); RDW 14.0 % (11.7-14.6); RDW-SD 40.4 fL; WBC 4.61 10^3/uL (4.4-10.8)
[2025-03-03 11:05] LABS: Glucose Negative (Negative)
[2025-03-03 11:14] VITALS: BP 136/94; PULSE 79; RESP 12; O2SAT 96
[2025-03-03 11:15] LABS: C & S Indicated? No; RBC 0-2 HPF (0-2)
[2025-03-03 11:22] LABS: Lipase 89 U/L (<78)
[2025-03-03 11:25] LABS: ALT 21 U/L (14-59); AST 19 U/L (15-37); Albumin 4.3 g/dL (3.4-5.0); Alkaline Phosphatase 65 U/L (46-116); Anion Gap 6.3 mmol/L (3-11); BUN 5 mg/dL (7-18); Bilirubin, Total 0.4 mg/dL (0.2-1.0); CO2 29.7 mmol/L (21.0-32.0); Calcium 9.9 mg/dL (8.5-10.1); Chloride 106 mmol/L (98-107); Estimated GFR 96.66 (mL/min/1.73m2); Glucose 89 mg/dL (74-106); Potassium 3.7 mmol/L (3.5-5.1); Sodium 142 mmol/L (136-145); Total Protein 8.0 g/dL (6.4-8.2)
[2025-03-03] MEDS: diphenhydrAMINE 50 MG/ML VIAL 25 MG IVP (11:55)
[2025-03-03] MEDS: Magnesium Citrate 300 ML BTL PO (11:55)
[2025-03-03 13:25] LABS: Troponin I 4 ng/L (<or=51)
[2025-03-03 13:54] LABS: TSH (W/Ref FT4) 1.27 uIU/mL (0.36-3.74)
--- NOTE | 2025-03-03 15:10 | W.ED.GENAD ---
Discharge Plan Disposition Patient Disposition: Home Discharge Details Clinical Impression: Elevated lipase, Nausea & vomiting Primary Care Provider: Verona Colindres ED Provider: Dorothy Hwang Home Meds and New Rx's Prescriptions: New promethazine 25 mg tablet 25 mg PO Q6H PRNQty: 14 0RF Continued melatonin 10 mg capsule 10 mg PO HS PRN Zepbound 7.5 mg/0.5 mL pen injector 7.5 mg subcut QWEEK ondansetron 4 mg tablet,disintegrating 4 mg PO TID Discharge Instructions Instructions: Constipation, Adult ED Additional Instructions: You may take half a bottle of magnesium citrate and take the remainder and 2 to 3 hours if you do not have good effect this will likely cause you to have a bowel movement which is likely causing the pressure in your abdomen You do have an elevated lipase level, this may be from the increase in the Zepbound, please return to your previously prescribed dose and have your lipase rechecked next week with her primary care physician Obviously if your pain or nausea become worse, you should come back to the emergency department for a reassessment Take the Phenergan as needed for nausea and vomiting, you may also use the Zofran you are previously prescribed Clear liquid diet today Should you develop worsening nausea, vomiting, abdominal pain, fever, chills, please return for reassessment Referrals: Verona Colindres [Primary Care Provider, Medicine] Discharge Data Discharge Date/Time-TO BE ENTERED AT DEPARTURE: 03/03/25 12:52 HPI General Date/Time Provider Initiated Documentation: 03/03/25 09:44. HPI Narrative: This par[place] 39-year-old female presents with nausea, vomiting, intermittent abdominal discomfort and some constipation. She recently had her Zepbound increased. She saw a doctor on Friday and was given Zofran for the nausea. Patient denies chest pain or shortness of breath. She denies any chance of , show no rashes or lesions. Denies history of similar symptoms in the past. Denies alcohol consumption Related Data Home Medications ?Medication ?Instructions ?Recorded ?Confirmed melatonin 10 mg capsule 10 mg PO HS PRN 03/28/24 03/03/25 ondansetron 4 mg disintegrating 4 mg PO TID 03/03/25 03/03/25 tablet promethazine 25 mg tablet 25 mg PO Q6H PRN #14 tabs 03/03/25 tirzepatide (weight loss) 7.5 7.5 mg subcut QWEEK 03/03/25 03/03/25 mg/0.5 mL subcutaneous pen injector (Zepbound) Previous Rx's ?Medication ?Instructions ?Recorded promethazine 25 mg tablet 25 mg PO Q6H PRN #14 tabs 03/03/25 Allergies Allergy/AdvReac Type Severity Reaction Status Date / Time No Known Allergies Allergy Unverified 03/03/25 09:51 General Stated Complaint: Dizzy/Sync TATYANA: 3 Exam Narrative Exam Narrative: Alert and oriented 39-year-old female in no acute distress no reproducible abdominal tenderness no vomiting overall well-appearing no respiratory distress Course Vital Signs Vital signs: Vital Signs Temperature 36.8 C 03/03/25 09:48 Pulse 84 03/03/25 09:48 Respiratory Rate 16 03/03/25 09:48 Blood Pressure 160/106 H 03/03/25 09:48 Pulse Oximetry 100 03/03/25 09:48 Temperature 36.8 C 03/03/25 09:48 Pulse 79 03/03/25 11:14 Pulse 79 03/03/25 11:14 Respiratory Rate 12 03/03/25 11:14 Respiratory Effort Normal, Non-Labored 03/03/25 10:51 Respiratory Depth Normal 03/03/25 10:51 Respiratory Pattern Normal 03/03/25 10:51 Blood Pressure 136/94 H 03/03/25 11:14 Blood Pressure Mean 105 03/03/25 11:14 Pulse Oximetry 96 03/03/25 11:14 Lab/Test Results Lab/Test Results: Laboratory Tests Range/Units 03/03/25 03/03/25 10:26 10:42 WBC (4.4-10.8) 10^3/uL 4.61 RBC (3.93-5.22) 10^6/uL 4.87 Hgb (11.2-15.7) g/dL 12.5 Hct (36.0-46.0) % 38.5 MCV (80-95) fL 79 L MCH (27.0-33.0) pg 25.7 L MCHC (32.0-36.0) % 32.5 RDW (11.7-14.6) % 14.0 Plt Count (130-400) 10^3/uL 224 MPV (8.0-11.0) fL 10.4 Immature Gran % % 0.4 Neutrophils % % 53.4 Lymphocytes % % 37.1 Monocytes % % 7.4 Eosinophils % % 1.3 Basophils % % 0.4 Nucleated RBC % (0.0-0.3) % 0.0 Absolute Neutrophils (1.2-6.7) 10^3/uL 2.46 Absolute Lymphocytes (1.2-3.4) 10^3/uL 1.71 Absolute Monocytes (0.1-0.8) 10^3/uL 0.34 Absolute Eosinophils (0.0-0.7) 10^3/uL 0.06 Absolute Basophils (0.0-0.2) 10^3/uL 0.02 Sodium (136-145) mmol/L 142 Potassium (3.5-5.1) mmol/L 3.7 Chloride (98-107) mmol/L 106 Carbon Dioxide (21.0-32.0) mmol/L 29.7 Anion Gap (3-11) mmol/L 6.3 BUN (7-18) mg/dL 5 L Creatinine (0.55-1.02) mg/dL 0.8 Est GFR (CKD-EPI 2020) (mL/min/1.73m2) 96.66 Glucose (74-106) mg/dL 89 Calcium (8.5-10.1) mg/dL 9.9 Total Bilirubin (0.2-1.0) mg/dL 0.4 AST (15-37) U/L 19 ALT (14-59) U/L 21 Alkaline Phosphatase (46-116) U/L 65 Troponin I (<or=51) ng/L 4 Total Protein (6.4-8.2) g/dL 8.0 Albumin (3.4-5.0) g/dL 4.3 Lipase (<78) U/L 89 H TSH (0.36-3.74) uIU/mL 1.27 Urine Color (Yellow) Yellow Urine Clarity (Clear) Sl Cloudy Urine pH (5-8) 7.0 Ur Specific [place] (1.005-1.025) 1.010 Urine Protein (Neg-Trace) mg/dL Negative Urine Ketones (Negative) mg/dL Negative Urine Blood (Negative) Large H Urine Nitrite (Negative) Negative Urine Bilirubin (Negative) Negative Urine Urobilinogen (Up to 0.2) mg/dL 0.2 Ur Leukocyte Esterase (Negative) Negative Urine RBC (0-2) HPF 0-2 Urine WBC (0-5) HPF 3-5 Ur Epithelial Cells (Negative) HPF Many Urine Crystals (Negative) HPF Negative Urine Bacteria (Negative) HPF Few Urine Casts (Negative) LPF Negative Urine Mucus (Negative) Negative Ur Culture Indicated? No Urine Glucose (Negative) mg/dL Negative POC Urine Test Start: 03/03/25 10:13 Freq: .Urine Test Status: Complete Protocol: Document 03/03/25 10:54 [facility] (Rec: 03/03/25 10:54 N.[facility] [id number]) Test(Urine)-POC POC- Test( Negative urine) POC- Test(urine) Negative Medical Decision Making Results: Lipase slightly elevated at 88, x-ray shows increased stool burden per radiology interpretation my review no leukocytosis on CBC large blood in urine consistent with patient currently menstruating Assessment and plan: Patient will be resumed on her prior dose of Zepbound and have lipase rechecked by her doctor next week she is given Phenergan as needed for nausea and vomiting She is given magnesium citrate to assist with bowel movement as she has been on Dulcolax without relief in symptoms. Patient remains fully alert and oriented in no acute distress return precautions reviewed and patient expressed understanding PFSH All Active Problems (Updated 03/03/25 @ 12:46 by RIP Aguilar) Nausea & vomiting (Acute) Elevated lipase (Acute) COVID-19 (Acute) Ovarian cyst (Acute) Menorrhagia (Acute) Vaginal discharge (Acute) Bacterial vaginosis (Acute) Hemorrhagic ovarian cyst (Acute) Left lower quadrant abdominal pain (Acute) Carpal tunnel syndrome on right (Acute) Delivery normal (Active 10/09/12) Medical History Seasonal allergic rhinitis due to pollen Seasonal allergies Social History Smoking/Tobacco Use Status: Never Smoking risk assessment performed?: Yes Alcohol Intake: current Alcohol Intake frequency: holidays/special occasions only Drug use: Never Substance use type: does not use Current gender identity: female Do you feel safe at home: Yes Do you feel safe in your relationship?: Yes
[2025-03-03 22:19] LABS: Lab Add On Test DONE
== END 2025-03-03 12:52 | disposition home or self-care (01) ==
PROVIDERS: Emergency Provider Physician Assistant; PCP Nurse Practitioner Family
DX: R11.2 Nausea with vomiting, unspecified (principal); R42 Dizziness and giddiness; R74.8 Abnormal levels of other serum enzymes
CPT/HCPCS: 99285; 99284; 81025; 36415; 96374; 96375; 80053; 83690; 93005; 96361; 74019; 81003; 81015; 84443; 84484; 85025; 93010; J0780; J1200

== ENCOUNTER 2025-03-27 15:44 | Observation (INO) | payer BC, SELFPAY ==
[2025-03-27] VITALS (18 sets, daily range): BP systolic 93–119; BP diastolic 41–79; PULSE 97–131; RESP 16–20; TEMP 37.8; O2SAT 94–98
--- NOTE | 2025-03-27 16:15 | RT.EKG_ITS ---
APPROVED REPORT Exam: Resting ECG Reason for Exam: Palpitations and dizziness Patient Location: E HR:133 bpm ECG Measurements Heart Rate 133 AXIS RI 108 P 55 QRSd 89 QRS 58 QT 296 T -63 QTc 440 Conclusion Sinus tachycardia...rate> 99 Nonspecific repol abnormality, diffuse leads...ST dep, T flat/neg, ant/lat/inf No STEMI
[2025-03-27 17:04] LABS: Abs Immature Grans 0.08 10^3/uL (0.0-0.06); HCT 36.2 % (36.0-46.0); HGB 12.0 g/dL (11.2-15.7); Immature Grans % 0.8 %; MCH 25.8 pg (27.0-33.0); MCHC 33.1 % (32.0-36.0); MCV 78 fL (80-95); MPV 10.1 fL (8.0-11.0); Platelet Count 217 10^3/uL (130-400); RBC 4.65 10^6/uL (3.93-5.22); RDW 14.7 % (11.7-14.6); RDW-SD 41.1 fL; WBC 10.42 10^3/uL (4.4-10.8)
--- NOTE | 2025-03-27 17:15 | DI.CT_ITS ---
Exam(s) CT ABDOMEN PELVIS W EXAM: CT ABDOMEN PELVIS W CLINICAL HISTORY: n/v/d. R sided abd pain. TECHNIQUE: Imaging Protocol: Axial computed tomography images with coronal and sagittal reformatted images were created and reviewed CONTRAST MATERIAL: Intravenous: Omnipaque-350 100cc Oral: None COMPARISON: CT CT ABDOMEN PELVIS W from 12/02/[address] CHEST PE CTA from 07/30/2021 FINDINGS: VISUALIZED LUNG BASES: No nodules nor pleural effusions evident. ABDOMEN: There is no ascites. LIVER: There are no focal hepatic lesions evident. No dilated intrahepatic ducts. GALLBLADDER/BILIARY: Tiny density on the dependent wall the gallbladder may be a tiny calculus or polyp. There is no evidence of acute cholecystitis. CBD is not dilated. PANCREAS: No evidence of pancreatic mass nor dilatation of the pancreatic duct. SPLEEN: Spleen size upper normal. No splenic lesions. Splenic and portal veins are patent. ADRENALS: There are no significant adrenal masses. KIDNEYS:No cysts evident. No solid renal masses. No calculi nor hydronephrosis.. ABDOMINAL AORTA: Abdominal aorta is not enlarged. LYMPH NODES:There is no retroperitoneal nor paraaortic adenopathy. ABDOMINAL WALL: No evidence of significant anterior abdominal wall nor inguinal hernia. GI: Stomach and duodenum are not distended. Small bowel loops are fluid-filled and measuring up to 2 point 7 cm, above normal limits. There appears to be an inflammatory process in the right iliac fossa which is probably acute appendicitis. There is a 7 mm calcific density-probable appendicular. Probable perspiration in this region. There is also some fluid in the cul-de-sac which is probably related to this inflammatory process. PELVIS: GI: Suspect appendicitis as above.No evidence of sigmoid diverticulitis. LYMPH NODES: There is no intrapelvic nor inguinal adenopathy. REPRODUCTIVE: Uterus age-appropriate. No abnormal adnexal masses URINARY BLADDER: No significant findings. OSSEOUS: No fractures and no significant osseous lesions. No disc space narrowing. No significant facet arthropathy IMPRESSION: 1. Inflammatory process in the right iliac fossa which is possibly acute appendicitis. There are also fluid-filled, edematous, and dilated small bowel loops proximal to this which may be reactionary or related to inflammatory bowel disease. 2. Surgical consultation recommended. Report called by myself to ER provider 03/27/2025 at 6:20 p.m. RADIATION DOSE DELIVERED: 744.62mGy.cm Total DLP DATA REPOSITORY: All CT scans at this facility are submitted to the National Radiology Data Registry (NRDR) Dose Index Registry (DIR) with the [employer] (ACR). RADIATION OPTIMIZATION: All CT scans at this facility use at least one of these dose optimization techniques: automated exposure control; mA and/or kV adjustment per patient size (includes targeted exams where dose is matched to clinical indication); or iterative reconstruction.
--- NOTE | 2025-03-27 17:16 | ED.GENADUL_ITS ---
Discharge Plan Disposition Patient Disposition: Admit to [facility] Discharge Details Clinical Impression: Acute appendicitis, Hypokalemia Admit Date/Time: 03/27/25 19:32 Admit Provider: Kendal Khanna Attending Provider: Kendal Khanna Primary Care Provider: Verona Colindres ED Provider: Lynda Cowan General Date/Time Provider Initiated Documentation: 03/27/25 15:52 . HPI Narrative: Melissa is a 39-year-old female presents to the emergency department today for evaluation of abdominal pain (R>L), accompanied by nausea/vomiting, watery diarrhea, dizziness/palpitations with standing up and movement. Symptoms started 4 days ago at the onset of her cycle. Pain is constant, worsens with movement, causing lightheadedness. Reports fatigue, nausea, vomiting mucus and bile, multiple episodes of watery diarrhea daily, and decreased urine output. No fever, but alternates between feeling hot and cold, sweating, headaches, runny nose, and dry heaving. She does work as a recreation therapy aides teacher, had a negative COVID-19 test on . 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 Vital signs: Tachycardia noted, low-grade fever. No hypoxia, tachypnea, or hypotension. HEENT: Slightly tacky mucous membranes. Cardiac: Tachycardia noted, regular heart sounds Respiratory: Easy work of breathing, lung sounds clear bilaterally Gastrointestinal: Tenderness in right mid to lower abdomen. Abdomen soft, nondistended, normoactive bowel sounds Skin: Warm and dry, no rash. Psychiatric: Normal. Course Vital Signs Vital signs: Vital Signs Temperature 37.8 C H 03/27/25 16:06 Pulse 131 H 03/27/25 16:06 Respiratory Rate 20 03/27/25 16:06 Blood Pressure 119/79 03/27/25 16:06 Pulse Oximetry 98 03/27/25 16:06 Temperature 37.8 C H 03/27/25 16:06 Pulse 131 H 03/27/25 16:06 Respiratory Rate 20 03/27/25 16:06 Blood Pressure 119/79 03/27/25 16:06 Blood Pressure Position Sitting 03/27/25 16:06 Pulse Oximetry 98 03/27/25 16:06 Oxygen Delivery Method Room Air 03/27/25 16:06 Oxygen Flow Rate 0 03/27/25 16:06 Pain Level 6 03/27/25 16:06 Lab/Test Results Lab/Test Results: Laboratory Tests Range/Units 03/27/25 16:55 WBC (4.4-10.8) 10^3/uL 10.42 RBC (3.93-5.22) 10^6/uL 4.65 Hgb (11.2-15.7) g/dL 12.0 Hct (36.0-46.0) % 36.2 MCV (80-95) fL 78 L MCH (27.0-33.0) pg 25.8 L MCHC (32.0-36.0) % 33.1 RDW (11.7-14.6) % 14.7 H Plt Count (130-400) 10^3/uL 217 MPV (8.0-11.0) fL 10.1 Immature Gran % % 0.8 Neutrophils % % 82.3 Lymphocytes % % 10.0 Monocytes % % 6.6 Eosinophils % % 0.1 Basophils % % 0.2 Nucleated RBC % (0.0-0.3) % 0.0 Absolute Neutrophils (1.2-6.7) 10^3/uL 8.58 H Absolute Lymphocytes (1.2-3.4) 10^3/uL 1.04 L Absolute Monocytes (0.1-0.8) 10^3/uL 0.69 Absolute Eosinophils (0.0-0.7) 10^3/uL 0.01 Absolute Basophils (0.0-0.2) 10^3/uL 0.02 Medical Decision Making Initial Assessment: Severe abdominal pain, nausea, lightheadedness, and fatigue coinciding with menstrual period. Tenderness, constipation, vomiting mucus and bile. Pain worsens with movement. Differential Diagnosis includes was not limited to: Enteritis/colitis, appendicitis, cholelithiasis, pyelonephritis, UTI, ovarian cyst, endometriosis, partial bowel obstruction ED Course: - IV Toradol for pain relief. - IV fluids. - Zofran for nausea. - CT abdomen and pelvis. - Lab tests. I independently interpreted the following tests: CBC, lipase, CMP all reassuring, only mild hypokalemia noted potassium 3.1. TSH/T4 unremarkable. CT abdomen/pelvis performed, significant for appendicitis with concern for perforation. Consulted with Dr. Khanna, general surgeon. Patient to be admitted for IV antibiotics tonight with plan for OR in the morning for management of acute appendicitis. Zosyn given in ED for empiric treatment. Clinical Impression: Acute appendicitis Hypokalemia Disposition: Admit to [facility] under surgery service. Reviewed plan with hospitalist, he is agreeable with surgery admitting patient. Patient consented to the use of [facility] Imaging Data Radiologic Study: Radiologist's impression: Addendum created by Nico Carson MD on 03/27/2025 7:18 PM Eastern Time ([place] & [place]): THIS REPORT CONTAINS FINDINGS THAT MAY BE CRITICAL TO PATIENT CARE. The findings were verbally communicated via telephone conference with LYNDA COWAN at 7:18 PM EDT on 03/27/2025. The findings were acknowledged and understood. Discussion regarding acute appendicitis. Can not exclude early perforation. Recommend surgical consultation. Initial Report created on 03/27/2025 7:14 PM Eastern Time ([place] & [place]): PROCEDURE INFORMATION: Exam: CT Abdomen And Pelvis With Contrast Exam date and time: 03/27/2025 5:29 PM Age: 39 years old Clinical indication: Nausea and vomiting; Abdominal pain; Localized; Right lower quadrant (rlq); N/v/d. R sided abd pain TECHNIQUE: Imaging protocol: Computed tomography of the abdomen and pelvis with contrast. COMPARISON: CT ABDOMEN PELVIS W 12/02/2020 8:21 PM FINDINGS: Lungs: Lung bases are clear. Pleural spaces: No pleural effusion. Heart: Normal heart size. No pericardial effusion. Moderate fatty liver infiltration. Liver: See Heart finding. Gallbladder and biliary ducts: The gallbladder is normal in size and shape. No stones or inflammatory changes. Pancreas: Normal. No ductal dilation. Spleen: Mi ld splenomegaly at 14.3 cm AP length. Adrenal glands: The adrenal glands are normal in size and contour bilaterally. Kidneys and ureters: The kidneys bilaterally are unremarkable. Normal attenutation. No hydronephrosis. No calculi. Stomach and bowel: Gastric morphology is unremarkable. No edema. No gastric outlet obstruction. Small sliding hiatal hernia without acute features. Small bowel loops with some fluid retention. Mucosal enhancement. Right lower quadrant small bowel focal wall thickening and edema which appears to be in the region of the distal ileum and terminal ileum. This raises concern for the possibility of a distal ileitis. This appears to be secondary to an adjacent acute appendicitis. Large bowel is unremarkable in course. There is mild edema of the mid sigmoid colon adjacent to an inflamed diverticulum. Appendix: Appendiceal distension and edema. Appendicolith. Appendiceal diameter is 11-12 mm. There is mild periappendiceal fluid. There is prominent adjacent periappen diceal inflammation. Early perforation is not excluded. Intraperitoneal space: Small volume free fluid in the pelvic cul-de-sac. Vasculature: Unremarkable. No abdominal aortic aneurysm. Lymph nodes: Unremarkable. No enlarged lymph nodes. Urinary bladder: Unremarkable as visualized. Reproductive: The uterus and adnexa are unremarkable in appearance. There are no dominant adnexal cysts or masslike features. There are no inflammatory features. No uterine mass evident. Bones/joints: Unremarkable. No acute fracture. Soft tissues: Unremarkable. Other findings: No discrete abscess. IMPRESSION: 1. Acute appendicitis. Prominent inflammation in the right lower quadrant. Can not exclude early perforation. There is a small volume of free fluid in the pelvic cul-de-sac. No definable abscess. No free air. 2. Small bowel and large bowel adjacent to the inflamed appendix with secondary inflammation. No bowel obstruction. 3. Fatty liver. 4. Mild splenomegaly. Quality:SDOH Health Related Social Needs: Health related social needs house/econ circumstance Health related social needs details n/a PFSH All Active Problems (Updated 03/27/25 @ 22:08 by Lynda Last) Hypokalemia (Acute) Acute appendicitis (Acute) Nausea & vomiting (Acute) Elevated lipase (Acute) COVID-19 (Acute) Ovarian cyst (Acute) Menorrhagia (Acute) Vaginal discharge (Acute) Bacterial vaginosis (Acute) Hemorrhagic ovarian cyst (Acute) Left lower quadrant abdominal pain (Acute) Carpal tunnel syndrome on right (Acute) Delivery normal (Active 10/09/12) Medical History Seasonal allergic rhinitis due to pollen Seasonal allergies Social History Smoking/Tobacco Use Status: Never Smoking risk assessment performed?: Yes Alcohol Intake: former Drug use: Never Substance use type: does not use Housing: house Current gender identity: female Do you feel safe at home: Yes Do you feel safe in your relationship?: Yes PAWSS Have you Been Recently Intoxicated or Drunk Within the Last 30 days?: No Have you Ever Experienced Previous Episodes of Alcohol Withdrawal?: No Have you ever Experienced Withdrawal Seizures?: No Have you ever Experienced Delirium Tremens(DT)s?: No Have you ever undergone Alcohol Rehabilitation Treatment (i.e, inpt ot outpatient treatment programs)?: No Have you ever Experienced Blackouts?: No Have you ever Combined Alcohol with other Downers within the last 90 days?: No Have you ever Combined Alcohol with any other Substance of Abuse during the last 90 days?: No Positive Blood Alcohol level on Presentation? [PCS.BAL]: No Evidence of Increased Autonomic Activity (i.e. HR>120, tremor, sweating, agitation, nausea)?: No Result: 0
[2025-03-27] MEDS: Ondansetron 4 MG/2 ML VIAL IVP (17:19)
[2025-03-27] MEDS: Ketorolac 15 MG/ML VIAL IVP (17:20)
[2025-03-27] MEDS: Normal Saline 1,000 ML 1000 ML IV (17:20)
[2025-03-27 17:28] LABS: ALT 16 U/L (14-59); AST 13 U/L (15-37); Albumin 3.3 g/dL (3.4-5.0); Alkaline Phosphatase 80 U/L (46-116); Anion Gap 13.7 mmol/L (3-11); BUN 9 mg/dL (7-18); Bilirubin, Total 1.0 mg/dL (0.2-1.0); CO2 24.3 mmol/L (21.0-32.0); Calcium 9.5 mg/dL (8.5-10.1); Chloride 96 mmol/L (98-107); Estimated GFR 83.92 (mL/min/1.73m2); Glucose 114 mg/dL (74-106); Lipase 30 U/L (<78); Potassium 3.1 mmol/L (3.5-5.1); Sodium 134 mmol/L (136-145); Total Protein 7.9 g/dL (6.4-8.2)
[2025-03-27 17:31] LABS: TSH (W/Ref FT4) 4.00 uIU/mL (0.36-3.74)
[2025-03-27] MEDS: Omnipaque 350 MG/ML 100 ML BTL IJ (17:35)
[2025-03-27] MEDS: Normal Saline - Diluent 50 ML VIAL IJ (17:37)
[2025-03-27] MEDS: Normal Saline Flush 10 ML SYR IVP ×3 (17:38→21:46)
[2025-03-27] MEDS: Acetaminophen 500 MG TAB 1000 MG PO (18:27)
--- NOTE | 2025-03-27 19:14 | DI.VRAD_ITS ---
Addendum created by Nico Carson MD on 03/27/2025 7:18:17 PM EDT: THIS REPORT CONTAINS FINDINGS THAT MAY BE CRITICAL TO PATIENT CARE. The findings were verbally communicated via telephone conference with GUZMAN NIAR at 7:18 PM EDT on 03/27/2025. The findings were acknowledged and understood. Discussion regarding acute appendicitis. Can not exclude early perforation. Recommend surgical consultation. Initial report created on 03/27/2025 7:14:11 PM EDT: PROCEDURE INFORMATION: Exam: CT Abdomen And Pelvis With Contrast Exam date and time: 03/27/2025 5:29 PM Age: 39 years old Clinical indication: Nausea and vomiting; Abdominal pain; Localized; Right lower quadrant (rlq); N/v/d. R sided abd pain TECHNIQUE: Imaging protocol: Computed tomography of the abdomen and pelvis with contrast. COMPARISON: CT ABDOMEN PELVIS W 12/02/2020 8:21 PM FINDINGS: Lungs: Lung bases are clear. Pleural spaces: No pleural effusion. Heart: Normal heart size. No pericardial effusion. Moderate fatty liver infiltration. Liver: See Heart finding. Gallbladder and biliary ducts: The gallbladder is normal in size and shape. No stones or inflammatory changes. Pancreas: Normal. No ductal dilation. Spleen: Mild splenomegaly at 14.3 cm AP length. Adrenal glands: The adrenal glands are normal in size and contour bilaterally. Kidneys and ureters: The kidneys bilaterally are unremarkable. Normal attenutation. No hydronephrosis. No calculi. Stomach and bowel: Gastric morphology is unremarkable. No edema. No gastric outlet obstruction. Small sliding hiatal hernia without acute features. Small bowel loops with some fluid retention. Mucosal enhancement. Right lower quadrant small bowel focal wall thickening and edema which appears to be in the region of the distal ileum and terminal ileum. This raises concern for the possibility of a distal ileitis. This appears to be secondary to an adjacent acute appendicitis. Large bowel is unremarkable in course. There is mild edema of the mid sigmoid colon adjacent to an inflamed diverticulum. Appendix: Appendiceal distension and edema. Appendicolith. Appendiceal diameter is 11-12 mm. There is mild periappendiceal fluid. There is prominent adjacent periappendiceal inflammation. Early perforation is not excluded. Intraperitoneal space: Small volume free fluid in the pelvic cul-de-sac. Vasculature: Unremarkable. No abdominal aortic aneurysm. Lymph nodes: Unremarkable. No enlarged lymph nodes. Urinary bladder: Unremarkable as visualized. Reproductive: The uterus and adnexa are unremarkable in appearance. There are no dominant adnexal cysts or masslike features. There are no inflammatory features. No uterine mass evident. Bones/joints: Unremarkable. No acute fracture. Soft tissues: Unremarkable. Other findings: No discrete abscess. IMPRESSION: 1. Acute appendicitis. Prominent inflammation in the right lower quadrant. Can not exclude early perforation. There is a small volume of free fluid in the pelvic cul-de-sac. No definable abscess. No free air. 2. Small bowel and large bowel adjacent to the inflamed appendix with secondary inflammation. No bowel obstruction. 3. Fatty liver. 4. Mild splenomegaly. Dictated and Authenticated by: Nico Carson MD. Orderin Ila Howell MD
[2025-03-27] MEDS: PIPERACILLIN/TAZO 4.5 GM in Normal Saline 100 ML IVPB (19:45)
--- NOTE | 2025-03-27 19:47 | W.PM.HP.N ---
Date of service: 03/27/25 Time of Service: 19:48 Assessment and Plan Assessment and plan (1) Acute appendicitis: Status: Acute Assessment and plan: Patient is a 39-year-old female who presents with 4 days of nausea and abdominal pain. She states that this is similar to her previous episode that she had about a month ago. She denies any previous abdominal surgery. On presentation she is afebrile and hemodynamically stable. On exam she has tenderness to palpation in the right lower quadrant without rebound or guarding. There is no evidence of diffuse peritonitis. Her white blood cell count is 10 and otherwise her laboratory findings are unremarkable. She had a CT abdomen pelvis which was concerning for an inflammatory process in the right lower quadrant including possible IBD versus perforated appendicitis. These findings were discussed with her in the emergency department as well as the recommendation to undergo admission with IV antibiotics and possible appendectomy vs antibiotics given concern for perforation. She was understanding of this. Will initiate IV antibiotics, continue n.p.o., monitor abdominal exam and continue maintenance IV fluids. History of Present Illness Narrative: Patient is a 39-year-old female who presents to the ED with 4 days of nausea and abdominal pain. She states that she had a similar episode about a month ago where she had nausea, vomiting, abdominal pain. She states she was seen in the emergency department at this time and it was noted that she had an elevated lipase and thought to be related to taking Zepbound. She has since discontinued this medication. She notes that 4 days ago she began having similar abdominal pain and nausea. She notes that the pain is mostly in the right lower quadrant. She denies any associated fevers or chills. She states that she has been having regular bowel movements. She denies any previous abdominal surgery. She does note she has had a previous colonoscopy given ongoing diarrhea and bloody stools. She unsure exactly about her family history but does not believe there is any family history of inflammatory bowel disease. Review of Systems Constitutional Constitutional: Denies fatigue, Denies fever(s), Denies headache(s), Denies weakness, Denies weight gain and Denies weight loss Eyes Eyes: Denies change in vision ENT Ears, Nose, Mouth, and Throat: Denies dizziness, Denies headache(s), Denies nasal congestion and Denies sore throat Cardiovascular Cardiovascular: Denies chest pain and Denies dyspnea Respiratory Respiratory: Denies dyspnea Gastrointestinal Gastrointestinal: Denies vomiting Genitourinary Genitourinary: Denies dysuria Musculoskeletal Musculoskeletal: Denies arthralgias, Denies muscle weakness and Denies numbness Integumentary/Breasts Skin/Breast: Denies new lesions and Denies rash Neurologic Neurologic: Denies dizziness, Denies headache(s), Denies numbness and Denies weakness Psychiatric Psychiatric: Denies anxiety and Denies depression Endocrine Endocrine: Denies fatigue PFSH All Active Problems (Updated 03/27/25 @ 19:54 by Kendal Khanna MD) Acute appendicitis (Acute) Nausea & vomiting (Acute) Elevated lipase (Acute) COVID-19 (Acute) Ovarian cyst (Acute) Menorrhagia (Acute) Vaginal discharge (Acute) Bacterial vaginosis (Acute) Hemorrhagic ovarian cyst (Acute) Left lower quadrant abdominal pain (Acute) Carpal tunnel syndrome on right (Acute) Delivery normal (Active 10/09/12) Medical History Seasonal allergic rhinitis due to pollen Seasonal allergies Social History Smoking/Tobacco Use Status: Never Smoking risk assessment performed?: Yes Alcohol Intake: former Drug use: Never Substance use type: does not use Current gender identity: female Do you feel safe at home: Yes Do you feel safe in your relationship?: Yes Meds Allergies and Home Medications Allergies Allergy/AdvReac Type Severity Reaction Status Date / Time No Known Allergies Allergy Unverified 03/27/25 16:15 Home Medications ?Medication ?Instructions ?Recorded ?Confirmed ?Type melatonin 10 mg capsule 10 mg PO HS PRN 03/28/24 03/27/25 History ondansetron 4 mg disintegrating 4 mg PO TID 03/03/25 03/27/25 History tablet promethazine 25 mg tablet 25 mg PO Q6H PRN #14 tabs 03/03/25 03/27/25 Rx Exam Narrative Exam Narrative: General: Well appearing, no acute distress. Skin: Good turgor, no visible rashes or lesion HEENT: Normocephalic, atraumatic, no visible masses, neck supple CV: Regular rate Lungs: Bilateral equal chest rise, non-labored breathing Abdomen: Soft, non-distended, tenderness to palpation in RLQ, no rebound or guarding Extremities: Warm, well perfused Neurologic: No focal deficits Psychiatric: Alert and oriented, normal mood and affect Results Imaging Abdomen CT scan report/results: report reviewed and image reviewed Labs 03/27/25 16:55 03/27/25 16:55 Labs: Laboratory Results - last 24 hr 03/27/25 16:55 WBC 10.42 RBC 4.65 Hgb 12.0 Hct 36.2 MCV 78 L MCH 25.8 L MCHC 33.1 RDW 14.7 H Plt Count 217 MPV 10.1 Immature Gran % 0.8 Neutrophils % 82.3 Lymphocytes % 10.0 Monocytes % 6.6 Eosinophils % 0.1 Basophils % 0.2 Nucleated RBC % 0.0 Absolute Neutrophils 8.58 H Absolute Lymphocytes 1.04 L Absolute Monocytes 0.69 Absolute Eosinophils 0.01 Absolute Basophils 0.02 Sodium 134 L Potassium 3.1 L Chloride 96 L Carbon Dioxide 24.3 Anion Gap 13.7 H BUN 9 Creatinine 0.9 Est GFR (CKD-EPI 2020) 83.92 Glucose 114 H Calcium 9.5 Total Bilirubin 1.0 AST 13 L ALT 16 Alkaline Phosphatase 80 Total Protein 7.9 Albumin 3.3 L Lipase 30 TSH 4.00 H Free T4 1.34 Last Vital Signs Temp 37.8 C H 03/27/25 16:06 Pulse 101 H 03/27/25 19:01 Resp 20 03/27/25 16:06 BP 93/49 L 03/27/25 19:00 Pulse Ox 98 03/27/25 19:01 PAWSS Have you Been Recently Intoxicated or Drunk Within the Last 30 days?: No Have you Ever Experienced Previous Episodes of Alcohol Withdrawal?: No Have you ever Experienced Withdrawal Seizures?: No Have you ever Experienced Delirium Tremens(DT)s?: No Have you ever undergone Alcohol Rehabilitation Treatment (i.e, inpt ot outpatient treatment programs)?: No Have you ever Experienced Blackouts?: No Have you ever Combined Alcohol with other Downers within the last 90 days?: No Have you ever Combined Alcohol with any other Substance of Abuse during the last 90 days?: No Positive Blood Alcohol level on Presentation? [PCS.BAL]: No Evidence of Increased Autonomic Activity (i.e. HR>120, tremor, sweating, agitation, nausea)?: No Result: 0 Time Spent Time spent with Patient: <40 minutes Time was spent: preparing to see the patient(eg.review tests), obtaining and/or reviewing separately otained hiistory, ordering medications,tests, procedures, referring, communicating with other health critical care rn, indepentently interpreting results and counseling the patient
--- NOTE | 2025-03-27 19:56 | NUR.NOTE ---
Requested Diagnostic Imaging to push images to [facility] [place] per Dr. Patricio Vasquez's request.
--- NOTE | 2025-03-27 20:14 | W.PC.ACHO ---
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 State it started when her period started and she has been passing clots, and having dizziness and light headedness since night. State she has been vomiting and get nauseous whenever she moves around. and she is having pain and pressure into the lower abdomen which worsens her lightheadedness and nausea. Patient state she feels palpitations as well when she moves around Medical / Surgical History (Last Reviewed 07/30/21 @ 16:35 by Marco Antonio Woods MD) Seasonal allergic rhinitis due to pollen Seasonal allergies Most Recent Vital Signs Temperature 37.8 C H 03/27/25 16:06 Pulse 101 H 03/27/25 19:01 Respiratory Rate 20 03/27/25 16:06 Blood Pressure 93/49 L 03/27/25 19:00 Blood Pressure Mean 62 03/27/25 19:00 Blood Pressure Position Sitting 03/27/25 16:06 Pulse Oximetry 98 03/27/25 19:01 Oxygen Delivery Method Room Air 03/27/25 16:06 Oxygen Flow Rate 0 03/27/25 16:06 Pain Level 6 03/27/25 16:06 Allergies No Known Allergies Allergy (Unverified 03/27/25 16:15) Active Medications Generic Name Dose Route Start Last Admin Trade Name Freq PRN Reason Stop Dose Admin Iohexol 100 ml 03/27/25 17:45 03/27/25 17:35 Omnipaque 350 Mg/Ml 100 Ml Btl IJ 04/26/25 23:59 100 ml DIRECTED TRUNG Administration Sodium Chloride 0 ml 03/27/25 17:32 03/27/25 17:38 Normal Saline Flush 10 Ml Syr IVP 10 ml PRN PRN Administration Sodium Chloride 50 ml 03/27/25 17:45 03/27/25 17:37 Normal Saline - Diluent 50 Ml Vial IJ 50 ml DIRECTED TRUNG Administration IV IV Catheter Type [Right Saline Lock Antecubital] IV Catheter Gauge [Right 20 Antecubital] Diet Orders Category Date Time Status Nothing Per Oral [DIET] Nutrition 03/27/25 19:32 Active Diagnostics 10/05/25 10/05/25 10/05/25 Range/Units 18:23 16:55 16:43 WBC 10.42 (4.4-10.8) 10^3/uL RBC 4.65 (3.93-5.22) 10^6/uL Hgb 12.0 (11.2-15.7) g/dL Hct 36.2 (36.0-46.0) % MCV 78 L (80-95) fL MCH 25.8 L (27.0-33.0) pg MCHC 33.1 (32.0-36.0) % RDW 14.7 H (11.7-14.6) % Plt Count 217 (130-400) 10^3/uL MPV 10.1 (8.0-11.0) fL Immature Gran % 0.8 % Neutrophils % 82.3 % Lymphocytes % 10.0 % Monocytes % 6.6 % Eosinophils % 0.1 % Basophils % 0.2 % Nucleated RBC % 0.0 (0.0-0.3) % Absolute Neutrophils 8.58 H (1.2-6.7) 10^3/uL Absolute Lymphocytes 1.04 L (1.2-3.4) 10^3/uL Absolute Monocytes 0.69 (0.1-0.8) 10^3/uL Absolute Eosinophils 0.01 (0.0-0.7) 10^3/uL Absolute Basophils 0.02 (0.0-0.2) 10^3/uL Sodium 134 L (136-145) mmol/L Potassium 3.1 L (3.5-5.1) mmol/L Chloride 96 L (98-107) mmol/L Carbon Dioxide 24.3 (21.0-32.0) mmol/L Anion Gap 13.7 H (3-11) mmol/L BUN 9 (7-18) mg/dL Creatinine 0.9 (0.55-1.02) mg/dL Est GFR (CKD-EPI 2020) 83.92 (mL/min/1.73m2) Glucose 114 H (74-106) mg/dL Calcium 9.5 (8.5-10.1) mg/dL Total Bilirubin 1.0 (0.2-1.0) mg/dL AST 13 L (15-37) U/L ALT 16 (14-59) U/L Alkaline Phosphatase 80 (46-116) U/L Total Protein 7.9 (6.4-8.2) g/dL Albumin 3.3 L (3.4-5.0) g/dL Lipase 30 (<78) U/L TSH 4.00 H (0.36-3.74) uIU/mL Free T4 1.34 (0.76-1.46) ng/dL Urine Color Pending Urine Clarity Pending Urine pH Pending Ur Specific [place] Pending Urine Protein Pending Urine Ketones Pending Urine Blood Pending Urine Nitrite Pending Urine Bilirubin Pending Urine Urobilinogen Pending Ur Leukocyte Esterase Pending Urine Glucose Pending COVID-19 Source Cancelled SARS-CoV-2 (PCR) Cancelled Influenza Type A (PCR) Cancelled Influenza Type B (PCR) Cancelled RSV (PCR) Cancelled Intake and Output - 24 Hour Total 03/27/25 15:44 thru 03/27/25 17:20 Intake Total 10 Balance 10 Weight 95.254 kg Intake: IV 10 Falls Risk Assessment History of Falls No History 03/27/25 19:03 Contributing Factors No Factors 03/27/25 19:03 Ambulatory Aids Independent 03/27/25 19:03 Tubes/Lines W/no contributing factors 03/27/25 19:03 Gait Evaluation No gait disturbance 03/27/25 19:03 Cognition No cognitive impairment 03/27/25 19:03 Fall Total Score 10 03/27/25 19:03 Level of Risk Standard/Low Risk 03/27/25 19:03 Problems (Last Reviewed 07/30/21 @ 16:35 by Marco Antonio Woods MD) Acute appendicitis (Acute) Notes 03/27/25 19:56 Nursing Notes by Thais Gray Requested Diagnostic Imaging to push images to [facility] [place] per Dr. Patricio Vasquez's request. Initialized on 03/27/25 19:56 - END OF NOTE v v v v v v v v v Sending and/or Receiving Nurses: Please use comment section below to note any information pertinent to the patient hand-off not included above. Information / Comments: C/o RLQ pain x4 days. N/V/D, dizzy with movement d/t decreased intake. VSS. 1L NS, Tylenol 1G, and Ketoralac given in ED. UA and UPreg collected. CT + for appendicitis, cannot r/o early perf. Pt is A&Ox4, CTA, abd soft and non tender to palp. Has been NPO since arrival to ED. Report received from: Misti Alexander RN
[2025-03-27] MEDS: HYDROmorphone 2 MG/ML SYR 0.5 MG IVP (20:50)
[2025-03-28] VITALS (44 sets, daily range): BP systolic 90–115; BP diastolic 45–73; PULSE 65–95; RESP 0–19; TEMP 36.1–37.5; O2SAT 90–99; BMI 37.8
[2025-03-28 00:23] LABS: Glucose Negative (Negative)
[2025-03-28 00:30] LABS: C & S Indicated? No
[2025-03-28] MEDS: ACETAMINOPHEN 1,000 MG/100 ML BAG 400 MG IVPB ×4 (01:51→19:51)
[2025-03-28] MEDS: PIPERACILLIN/TAZO 3.375 GM in Normal Saline 50 ML IVPB ×3 (02:14→17:43)
[2025-03-28] MEDS: Lactated Ringers 1,000 ML 125 ML IV ×2 (06:31→14:15)
[2025-03-28 06:37] LABS: Abs Immature Grans 0.06 10^3/uL (0.0-0.06); HCT 30.9 % (36.0-46.0); HGB 10.0 g/dL (11.2-15.7); Immature Grans % 0.8 %; MCH 25.6 pg (27.0-33.0); MCHC 32.4 % (32.0-36.0); MCV 79 fL (80-95); MPV 10.5 fL (8.0-11.0); Platelet Count 188 10^3/uL (130-400); RBC 3.90 10^6/uL (3.93-5.22); RDW 14.9 % (11.7-14.6); RDW-SD 43.0 fL; WBC 7.08 10^3/uL (4.4-10.8)
[2025-03-28 06:50] LABS: Anion Gap 10.9 mmol/L (3-11); BUN 11 mg/dL (7-18); CO2 25.1 mmol/L (21.0-32.0); Calcium 8.9 mg/dL (8.5-10.1); Chloride 102 mmol/L (98-107); Estimated GFR 96.66 (mL/min/1.73m2); Glucose 102 mg/dL (74-106); Potassium 3.0 mmol/L (3.5-5.1); Sodium 138 mmol/L (136-145)
--- NOTE | 2025-03-28 07:49 | W.PM.PROGNOT ---
Date of Service Date of service: 03/28/25 Time of Service: 07:49 Assessment and Plan Assessment and plan (1) Acute appendicitis: Status: Acute Assessment and plan: Patient is a 39-year-old female who presented with 4 days of abdominal pain and associated nausea. She denies any previous abdominal surgery. On presentation she was afebrile and hemodynamically stable. She has tenderness to palpation in the right lower quadrant but no evidence of diffuse peritonitis. Her imaging was concerning for acute appendicitis with possible perforation. She was admitted overnight to the hospital for IV antibiotics with plan for possible appendectomy the following morning. Her imaging findings were discussed with her including the concern for possible perforation. Management with antibiotics versus a laparoscopic, possible open appendectomy was discussed with her at length. Following this discussion we will plan for a laparoscopic appendectomy, possible open appendectomy. The risks and benefits associate with the procedure were discussed with her at length including the fact that given the concern for possible perforation the risks are somewhat higher. Discussed with her postoperative management including potential drain placement. She was understanding of this and consent was obtained prior to procedure. Will continue n.p.o., fluids, and plan for appendectomy when OR available. Subjective Subjective Interval history since last seen: She states she is doing slightly better this morning. She notes that her pain is slightly improved. She does endorse some nausea related to pain medications overnight. She denies any fevers or chills. She denies any difficulty urinating. Exam Narrative Exam Narrative: General: no acute distress. Skin: Good turgor, no visible rashes or lesion HEENT: Normocephalic, atraumatic, no visible masses, neck supple CV: Regular rate Lungs: Bilateral equal chest rise, non-labored breathing Abdomen: Soft, non-distended, tender to palpation in RLQ, no rebound or guarding Extremities: Warm, well perfused Neurologic: No focal deficits Psychiatric: Alert and oriented, normal mood and affect Objective Last Vital Signs Temp 37.5 C 03/28/25 05:36 Pulse 82 03/28/25 05:36 Resp 16 03/28/25 05:36 BP 101/67 03/28/25 05:36 Pulse Ox 96 03/28/25 05:36 Laboratory Results - last 24 hr 03/27/25 03/27/25 03/28/25 16:43 16:55 00:10 WBC 10.42 RBC 4.65 Hgb 12.0 Hct 36.2 MCV 78 L MCH 25.8 L MCHC 33.1 RDW 14.7 H Plt Count 217 MPV 10.1 Immature Gran % 0.8 Neutrophils % 82.3 Lymphocytes % 10.0 Monocytes % 6.6 Eosinophils % 0.1 Basophils % 0.2 Nucleated RBC % 0.0 Absolute Neutrophils 8.58 H Absolute Lymphocytes 1.04 L Absolute Monocytes 0.69 Absolute Eosinophils 0.01 Absolute Basophils 0.02 Sodium 134 L Potassium 3.1 L Chloride 96 L Carbon Dioxide 24.3 Anion Gap 13.7 H BUN 9 Creatinine 0.9 Est GFR (CKD-EPI 2020) 83.92 Glucose 114 H Calcium 9.5 Total Bilirubin 1.0 AST 13 L ALT 16 Alkaline Phosphatase 80 Total Protein 7.9 Albumin 3.3 L Lipase 30 TSH 4.00 H Free T4 1.34 Urine Color Dark Yellow Urine Clarity Sl Cloudy Urine pH 5.5 Ur Specific [place] 1.010 Urine Protein >=300 H Urine Ketones 40 H Urine Blood Moderate H Urine Nitrite Negative Urine Bilirubin Moderate H Urine Urobilinogen 0.2 Ur Leukocyte Esterase Negative Urine RBC 5-10 H Urine WBC 5-10 Ur Epithelial Cells Few Urine Crystals Few Amorphous Urine Bacteria Few Urine Casts 0-2 Coarse Granular Urine Mucus Moderate Urine Other Rare Renal Ur Culture Indicated? No Urine Glucose Negative COVID-19 Source Cancelled SARS-CoV-2 (PCR) Cancelled Influenza Type A (PCR) Cancelled Influenza Type B (PCR) Cancelled RSV (PCR) Cancelled 03/28/25 06:00 WBC 7.08 RBC 3.90 L Hgb 10.0 L D Hct 30.9 L MCV 79 L MCH 25.6 L MCHC 32.4 RDW 14.9 H Plt Count 188 MPV 10.5 Immature Gran % 0.8 Neutrophils % 75.1 Lymphocytes % 14.3 Monocytes % 9.0 Eosinophils % 0.7 Basophils % 0.1 Nucleated RBC % 0.0 Absolute Neutrophils 5.31 Absolute Lymphocytes 1.01 L Absolute Monocytes 0.64 Absolute Eosinophils 0.05 Absolute Basophils 0.01 Sodium 138 Potassium 3.0 L Chloride 102 Carbon Dioxide 25.1 Anion Gap 10.9 BUN 11 Creatinine 0.8 Est GFR (CKD-EPI 2020) 96.66 Glucose 102 Calcium 8.9 Total Bilirubin AST ALT Alkaline Phosphatase Total Protein Albumin Lipase TSH Free T4 Urine Color Urine Clarity Urine pH Ur Specific [place] Urine Protein Urine Ketones Urine Blood Urine Nitrite Urine Bilirubin Urine Urobilinogen Ur Leukocyte Esterase Urine RBC Urine WBC Ur Epithelial Cells Urine Crystals Urine Bacteria Urine Casts Urine Mucus Urine Other Ur Culture Indicated? Urine Glucose COVID-19 Source SARS-CoV-2 (PCR) Influenza Type A (PCR) Influenza Type B (PCR) RSV (PCR) PAWSS Have you Been Recently Intoxicated or Drunk Within the Last 30 days?: No Have you Ever Experienced Previous Episodes of Alcohol Withdrawal?: No Have you ever Experienced Withdrawal Seizures?: No Have you ever Experienced Delirium Tremens(DT)s?: No Have you ever undergone Alcohol Rehabilitation Treatment (i.e, inpt ot outpatient treatment programs)?: No Have you ever Experienced Blackouts?: No Have you ever Combined Alcohol with other Downers within the last 90 days?: No Have you ever Combined Alcohol with any other Substance of Abuse during the last 90 days?: No Positive Blood Alcohol level on Presentation? [PCS.BAL]: No Evidence of Increased Autonomic Activity (i.e. HR>120, tremor, sweating, agitation, nausea)?: No Result: 0 Time Spent with Patient Time Spent with Patient: <25 minutes Time was spent: preparing to see the patient(eg.review tests), obtaining and/or reviewing separately otained hiistory, ordering medications,tests, procedures, indepentently interpreting results and counseling the patient
--- NOTE | 2025-03-28 08:26 | ANES.PREOP_ITS ---
General Info Date of Service Date Performed: 03/28/25 Height: 5 ft 2 in Weight: 93.803 kg Body Mass Index (BMI): 37.8 Surgical Procedure: Operation Date: 03/28/25 09:10 Proposed Procedure Side Surgeon p Appendectomy Laparoscopic Kendal Khanna MD Meds Allergies and Home Medications Allergies Allergy/AdvReac Type Severity Reaction Status Date / Time No Known Allergies Allergy Unverified 03/27/25 16:15 Home Medication ?Medication ?Instructions ?Recorded melatonin 10 mg capsule 10 mg PO HS PRN 03/28/24 ondansetron 4 mg disintegrating 4 mg PO TID 03/03/25 tablet promethazine 25 mg tablet 25 mg PO Q6H PRN #14 tabs Current Visit Medications: Current Medications Generic Name Dose Route Start Last Admin Trade Name Freq PRN Reason Stop Dose Admin Enoxaparin Sodium 40 mg 03/28/25 20:00 Enoxaparin 40 Mg/0.4 Ml Syr SC Q24H TRUNG Hydromorphone HCl 0.5 mg 03/27/25 19:32 03/27/25 20:50 Hydromorphone 2 Mg/Ml Syr IVP 0.5 mg Q6H PRN PRN Administration Ringer's Solution 1,000 mls @ 125 mls/hr 03/27/25 19:45 03/28/25 06:31 IV 125 mls/hr INFUSION TRUNG Administration Piperacillin Sod/Tazobactam 50 mls @ 100 mls/hr 03/27/25 19:45 03/28/25 03:41 Sod 3.375 gm/ Sodium Chloride IVPB Infused Q6H TRUNG Infusion Acetaminophen 1,000 mg in 100 mls @ 400 mls/hr 03/27/25 19:45 03/28/25 02:15 Ofirmev IVPB Infused Q6H TRUNG Infusion IV Miscellaneous Supplies 1 each 03/27/25 19:45 Iv Access IV DIRECTED TRUNG Iohexol 100 ml 03/27/25 17:45 03/27/25 17:35 Omnipaque 350 Mg/Ml 100 Ml Btl IJ 04/26/25 23:59 100 ml DIRECTED TRNUG Administration Ondansetron HCl 4 mg 03/27/25 19:32 Ondansetron 4 Mg/2 Ml Vial IVP Q4H PRN PRN Sodium Chloride 0 ml 03/27/25 17:32 03/27/25 20:51 Normal Saline Flush 10 Ml Syr IVP 10 ml PRN PRN Administration Sodium Chloride 50 ml 03/27/25 17:45 03/27/25 17:37 Normal Saline - Diluent 50 Ml Vial IJ 50 ml DIRECTED TRUNG Administration Sodium Chloride 0 ml 03/27/25 19:32 Normal Saline Flush 10 Ml Syr IVP PRN PRN Sodium Chloride 0 ml 03/27/25 20:00 03/27/25 21:46 Normal Saline Flush 10 Ml Syr IVP 10 ml BID TRUNG Administration Sodium Chloride 0 ml 03/27/25 19:32 Normal Saline 10 Ml Vial IJ DIRECTED PRN PFSH Active Problems Active Problems: Problem Status Onset Code Hypokalemia Acute E87.6 Acute appendicitis Acute K35.80 Nausea & vomiting Acute R11.2 Elevated lipase Acute R74.8 COVID-19 Acute U07.1 Ovarian cyst Acute N83.209 Menorrhagia Acute N92.0 Vaginal discharge Acute N89.8 Bacterial vaginosis Acute N76.0, B96.89 Hemorrhagic ovarian cyst Acute N83.209 Left lower quadrant abdominal pain Acute R10.32 Carpal tunnel syndrome on right Acute G56.01 Delivery normal Active 10/09/12 O80, Z37.9 Medical History Medical History Seasonal allergic rhinitis due to pollen Seasonal allergies Tobacco Smoking/Tobacco Use Status: Never Alcohol Alcohol Intake: former Substance Use Substance use: Never Substance use type: does not use Vital Signs and Lab Results Vital Signs Most Recent Vital Signs in EMR: Most Recent Vital Signs Temp Pulse Resp BP Pulse Ox 36.7 C 86 17 107/71 97 03/28/25 08:06 03/28/25 08:06 03/28/25 08:06 03/28/25 08:06 03/28/25 08:06 Point of Care Results Point of Care Results: POC- Test(urine) Negative 03/27/25 20:04 Lab Results 03/28/25 06:00 03/28/25 06:00 Complete Blood Count: 2 WBC, (4.4-10.8) 7.08 10^3/uL Today, 06:00 RBC, (3.93-5.22) 3.90 10^6/uL L Today, 06:00 Hgb, (11.2-15.7) 10.0 g/dL L Δ Today, 06:00 Hct, (36.0-46.0) 30.9 % L Today, 06:00 Plt Count, (130-400) 188 10^3/uL Today, 06:00 Complete Metabolic Panel: 2 Sodium, (136-145) 138 mmol/L Today, 06:00 Potassium, (3.5-5.1) 3.0 mmol/L L Today, 06:00 Chloride, (98-107) 102 mmol/L Today, 06:00 Carbon Dioxide, (21.0-32.0) 25.1 mmol/L Today, 06:00 BUN, (7-18) 11 mg/dL Today, 06:00 Creatinine, (0.55-1.02) 0.8 mg/dL Today, 06:00 Est GFR (CKD-EPI 2020), (mL/min/1.73m2) 96.66 Today, 06:00 Calcium, (8.5-10.1) 8.9 mg/dL Today, 06:00 Albumin, (3.4-5.0) 3.3 g/dL L 03/27/25, 16:55 Glucose, (74-106) 102 mg/dL Today, 06:00 Liver Function Panel: 2 ALT, (14-59) 16 U/L 03/27/25, 16:55 AST, (15-37) 13 U/L L 03/27/25, 16:55 Cardiac Panel: 2 Troponin I, (<or=51) 4 ng/L 03/03/25 Pancreas Panel: 2 Lipase, (<78) 30 U/L 03/27/25, 16:55 Thyroid Panel: 2 TSH, (0.36-3.74) 4.00 uIU/mL H 03/27/25, 16:55 Imaging and Studies Imaging and Studies Study information below may be from another EMR and interpreted by another provider. Please see original notes in EMR for more complete details. EKG Summary: 03/27/25 Conclusion Sinus tachycardia...rate> 99 Nonspecific repol abnormality, diffuse leads...ST dep, T flat/neg, ant/lat/inf No STEMI Anesthesia Assessment and Plan Anesthesia History Personal History: No History of Anesthesia Complications Family History: No Family History of Anesthesia Complications Exercise Tolerance Exercise Tolerance: Metabolic Equivalents>4 Pertinent Negatives Pertinent Negatives: No Major Cardiovascular Symptoms or Complaints and No Major Pulmonary Symptoms or Complaints Cardiac & Pulmonary Exam Cardiac Exam: Normal S1/S2 Heart Sounds Pulmonary Exam: Clear Bilateral Breath Sounds Implantable Cardiac Device Does patient have a Pacemaker or an ICD?: No Airway Exam Known Difficult Airway: No Mallampati Class: 3 Mouth Opening: Normal (> 3cm) Thyromental Distance: Less than 3 cm Neck Range of Motion: Full ROM Neck Circumference: Normal Teeth Condition: Normal Dentition (temporary fillings lower molar both sides, not loose but may be fragile) ASA Classification ASA Score: ASA 2 Emergency Case?: No NPO Status NPO Status: NPO Clears >2 hours, Solids >8 hours Status Status: Negative HCG Anesthesia Plan Resuscitation Status: Full Code Anesthesia Technique: General Anesthesia Airway Planned: Endotracheal Tube Pain Management: Surgeon and patient request nerve block (TAP blocks post op rescue if open procedure) Monitors Used: Standard Monitors Preoperative Comments:: Patient concerned about pain control if appendix is ruptured and the surgery changes to open with large incision.
[2025-03-28] MEDS: Normal Saline Flush 10 ML SYR IVP (09:04)
--- NOTE | 2025-03-28 10:19 | PDOC.CMIN ---
Date of service: 03/28/25 Time of Service: 16:51 Care Management Initial Assmt Initial Assessment Reason for Hospitalization: acute appendicitis Functional Status/Living Situation Patient Presentation: Melissa was sleeping when CM attempted to met with her. Melissa presented to the ED for evaluation of right lower abdominal pain. Melissa will undergo a laparoscopic appendectomy today. The following information was obtained via chart review. 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 CM will continue to follow. Town of Residence: [place] Resides with: Spouse Significant Other/Family: Local Employment Status: Employed ([employer] ) Medications Medication Management: No Issues/Barriers identified Advance Directives Advance Directives: Do you have an Advance Directive: N 03/28/24, 08:22 AD On File at [facility]: N 03/28/24, 08:22 Date Asked 03/27/25 Today, 04:13 AD Date Reviewed COLST On File at [facility] COLST Date Scanned Code Status Resuscitation Status Full Code Portal Pt does not currently have a portal and education provided: Yes Insurance Coverage/Financial Issues Insurance: /[facility] - [id number] Care Team Visit Care Team Role Provider Type Verona Colindres Primary Care Provider ADV PRACTICE REGISTERED NURSE Lynda Last Emergency Provider NURSE PRACTITIONER Kendal Khanna MD Admit Provider [facility] STAFF PHYSICIAN Attending Provider Discharge Potential Discharge Needs: PCP F/U Appt and Surgical F/U Appt Anticipated Barriers to Discharge: None Identified Patient/Family Education Needs: Review discharge instructions, discuss Ask Me Three Transportation: Private vehicle Plan: Anticipate Melissa will be discharged home, once medically ready. It is recommended she follow up with her community providers, surgical team, and discharge plan of care. She will be transported home likely by private vehicle. Melissa may require a work note. CM will continue to follow. Social Determinants of Health Screening Social Determinants of health last assessed in clinic: 03/28/25 Will the Patient Participate in the Screening?: Unable to obtain Do you worry about having a steady place to live?: no Problems where you live: no known problems In the past 12 months, have you had to go without electric, gas, oil or water in your home?: no 1. Within the past 12 months, we worried whether our food would run out before we got money to buy more.: Never true 2. Within the past 12 months, the food we bought just didn't last and we didn't have money to get more.: Never true Has lack of transportation kept you from medical appointments or from doing things needed for daily living?: no Has anyone in your life made you feel unsafe or unsupported?: no How hard is it for you to pay for the very basics like food, housing, medical care, and heating? Would you say it is:: Somewhat hard Do you want help finding or keeping work or a job?: I do not need or want help If for any reason you need help with day-to-day activities such as bathing, preparing meals, shopping, managing finances, etc., do you get the help you need?: I don?t need any help How often do you feel lonely or isolated from those around you?: Never Do you speak a language other than Belarusian at home?: No Does the patient want assistance with any of the above?: No Health Related Social Needs Health related social needs: problems related to housing/economic circumstances (Z59.89) Health related social needs details: n/a [facility] All Active Problems (Updated 03/27/25 @ 22:08 by Lynda Last) Hypokalemia (Acute) Acute appendicitis (Acute) Nausea & vomiting (Acute) Elevated lipase (Acute) COVID-19 (Acute) Ovarian cyst (Acute) Menorrhagia (Acute) Vaginal discharge (Acute) Bacterial vaginosis (Acute) Hemorrhagic ovarian cyst (Acute) Left lower quadrant abdominal pain (Acute) Carpal tunnel syndrome on right (Acute) Delivery normal (Active 10/09/12) Medical History Seasonal allergic rhinitis due to pollen Seasonal allergies Social History Smoking/Tobacco Use Status: Never Smoking risk assessment performed?: Yes Alcohol Intake: former Drug use: Never Substance use type: does not use Housing: house Current gender identity: female Do you feel safe at home: Yes Do you feel safe in your relationship?: Yes Readmission Within the Past 30 Days Yes or No: No
--- NOTE | 2025-03-28 11:25 | W.NUTRFU ---
Date of service: 03/28/25 Time of Service: 11:25 Nutrition Note NOTE: Patient chart reviewed. NPO for surgery - appendectomy planned today. BMI consistent with class II obesity - would benefit from fat loss. Last A1C < 5.7 Potassium lab low today. Recommend - repleting potassium, advancing diet as tolerated after surgery. Pt assessed as low acute nutrition risk outside recent poor po intake. will continue to monitor. Time Spent in Nutritional Counseling and Treatment: 0
--- NOTE | 2025-03-28 13:59 | APP_PTH ---
PATIENT: Melissa Carter LOC: U#:[id number] AGE/SX: 40/F ROOM: RE03/27/[address]: Kendal Khanna : 1985 BED: A DIS: 03/30/2025 SPEC #: [id number] RECD: 03/28/25 15:06 STATUS: DAVID REOrly #: [id number] DARRYL: 03/28/25 13:[address]: Kendal Khanna DEPT: Surgical Specimen RECD BY: Dorothy Meredith ENTERED: 03/28/25 15:07 SP TYPE: Appendix OTHR DR: Verona Colindres Tissues: 1 - APPENDIX NOT INCIDENTAL Procedures: GROSS AND MICRO LEVEL 3 Comments: [id number]
[2025-03-28] MEDS: Bupivacaine 0.25% Pres-Free W/EPI 30 ML VIAL (14:06)
--- NOTE | 2025-03-28 14:38 | W.ANESPOSTOP ---
Postoperative Evaluation Date, Time and Location Date Performed: 03/28/25 Time Performed: 14:38 Patient Location: PACU Vital Signs Most Recent Imported Vital Signs: Most Recent Vital Signs Temp Pulse Resp BP Pulse Ox 36.1 C L 83 16 109/70 99 03/28/25 14:27 03/28/25 11:38 03/28/25 11:38 03/28/25 11:38 03/28/25 11:38 Pain Score Most Recent Pain Score: Most Recent Pain Score Pain Level 0 03/28/25 08:06 Assessment Mental Status: Arousable with meaningful communication Airway and Respiratory Function: Patent airway with normal (patient baseline) respiratory exam Cardiovascular Function: Hemodynamically Stable Hydration Status: Adequately Hydrated Nausea & Vomiting: No Nausea or Vomiting Pain: Pt. Denies Any Pain Peripheral Nerve Block: Patient did not receive a nerve block
[2025-03-28] MEDS: HYDROmorphone 2 MG/ML SYR IVP ×4 (14:58→15:47)
--- NOTE | 2025-03-28 15:18 | PHA.REVIEW2 ---
Pharmacy Admission Review Admission Clinical Review Admission Pharmacy Review: Hypokalemia (Acute) Acute appendicitis (Acute) No Known Allergies Allergy (Unverified 03/27/25 16:15) Resuscitation Status Full Code Height 5 ft 2 in Weight 93.803 kg Comments Comments/Follow Ups: plan with zosyn post-op. Pharmacy Admission Review Renal Dosing Renal Dosing: BUN 11 mg/dL (7-18) 03/28/25 06:00 Creatinine 0.8 mg/dL (0.55-1.02) 03/28/25 06:00 Medications needing adjustments: Reviewed List of meds needing interventions: none Anticoagulation Anticoagulation: Hgb 10.0 g/dL (11.2-15.7) L D 03/28/25 06:00 Hct 30.9 % (36.0-46.0) L 03/28/25 06:00 Plt Count 188 10^3/uL (130-400) 03/28/25 06:00 Creatinine 0.8 mg/dL (0.55-1.02) 03/28/25 06:00 DVT Prophylaxis: Reviewed Medications: Enoxaparin Opiate Usage Evaluate Pain Scale/Pains Meds: Reviewed Scheduled Bowel Reg ordered if on Opiates?: Yes Relevant Labs Relevant Labs: Sodium 138 mmol/L (136-145) 03/28/25 06:00 Potassium 3.0 mmol/L (3.5-5.1) L 03/28/25 06:00 Chloride 102 mmol/L (98-107) 03/28/25 06:00 Electrolytes, C-Reactive P, ESR: Reviewed DM Control DM Control: Reviewed Cardiac Review Cardiac Review: QF=326/59, HR=79 BP, HR, EF%: Reviewed QTc Review QTc: Reviewed List meds needing interventions: vry=206; no intervention IV to PO Switch IV Medications: Reviewed Home Meds Home Med List reviewed: Reviewed Relevent Home Meds Not ordered & why?: npo for surgery today Current Meds Current Medication Order Review: Reviewed Pharmacy Antibiotic Review Relevant Labs: on zosyn for perforated appendicitis. Pt to OR today. Comments Comments/Follow Ups: plan with zosyn post-op.
--- NOTE | 2025-03-28 15:51 | ROE_ITS ---
Operative Note Operative Note PRE-OP DIAGNOSIS: Acute appendicitis POST-OP DIAGNOSIS: other (Acute gangrenous appendicitis) PROCEDURE: Laparoscopic appendectomy SURGEON: Kendal Khanna SUSPENDER CUTTER: Merritt Harvey ANESTHESIA TYPE: Local By Surgeon and General LMA/ETT Refer to Anesthesia Record ESTIMATED BLOOD LOSS: 25 PATHOLOGY: other (Appendix ) COMPLICATIONS: None Patient was transported to: PACU Patient's condition: stable Implants: 19 fr carley drain in RLQ Indications: Patient is a 39 yo female who presented with 4 days of abdominal pain and naus ea. On presentation she was hemodynamically stable and afebrile. She had tenderness to palpation in RLQ without evidence of peritonitis. She had a CT adbomen/pelvis with concern for potentially perforated acute appendicitis. She was admitted overnight with antibiotics and plan for managment with antibiotics versus appendecotmy. Upon further discuss the following morning regarding management the decision was made to proceed with a laparosocpic appendecotmy, possible open appendectomy. She was aware of the risks and benefits especially given concern for perforation of the appendix and consent was obtained prior to the procedure. Findings: Laparoscopic dissection performed to identify necrotic, gangrenous appendix with purulence. Adhesions between appendix and small bowel as well as right adnexal structures taken down with blunt dissection. Careful dissection performed to free the entire appendix. Mesoappendix divided with ligasure. Base of the appendix identified and divided with stapler. Given degree of inflammation and gangrenous nature of the appendix a drain was left in the RLQ through the suprapubic port. Procedure Description: After induction of anesthesia the patient was then prepped and draped in sterile fashion. ?Prior to incision, an additional timeout was performed, which again confirmed the patient's name, date of , and the procedure to be performed, including laterality, and antibiotics. A?vertical, 5 mm incision was made just superior to the umbilicus. The umbilical stalk was isolated using blunt dissection, and was then grasped and elevated with a penetrating towel clamp. A Veress needle was used to gain entry to the abdominal cavity and the abdomen was insufflated to 15 mmHg without incident. A 5 mm Optiview port was then placed under direct visualization. The abdomen was inspected with the laparoscope and there was no evidence of bowel injury or bleeding. There was evidence of diffuse injection of the peritoneum. There was also evidence of a firm mass in the right lower quadrant at the location of the presumed appendix. An?additional?12 mm?port was then?placed in the left lower quadrant under direct visualization?and a 5 mm port was placed in the suprapubic space. Attention was then turned to the right lower quadrant. The omentum and small bowel were carefully dissected free from the presumed area of the appendix in the RLQ. This dissection was performed carefully being sure not to injury the surrounding structures. The right adnexal structures as well as the sigmoid colon were also dissected from the appendix. Almost the entire appendix was noted to be necrotic and gangrenous with purulent drainage. Dissection was performed to identify the entire appendix and free it carefully from all surrounding structures. The mesoappendix was then divided with a ligasure device and hemostasis achieved. The base of the appendix was identified and divided at a healthy area at the base of the cecum with a 45mm staple load. The appendix was placed in a specimen bag. The staple line was inspected and showed no evidence of bleeding. There was no remaining appendiceal stump.??Given the degree of necrosis of the appendix and purulent drainage the abdomen was irrigated and fluid suction. The decision was then made to place a 19 fr drain through the suprapubic port into the right lower quadrant. The drain was secured using a nylon suture. The appendix and left lower quadrant port were then?removed from the abdomen.? The?abdomen was desufflated and the umbilical?5 mm port was then removed. The?left lower quadrant?fascial incision was closed with a 0 Vicryl suture. Local anesthesia was injected into the incisions. The skin?of all port sites?were closed with Monocryl and dermabond. At this point, the patient was awoken, extubated and transported to the recovery room in stable condition. ?Sponge and instrument counts were correct. Date of Procedure: 03/28/25
[2025-03-28] MEDS: fentaNYL 100 MCG/2 ML VIAL IVP (16:03)
[2025-03-28] MEDS: Enoxaparin 40 MG/0.4 ML SYR SC (20:56)
[2025-03-28] MEDS: Lactated Ringers 1,000 ML 100 ML IV (22:23)
[2025-03-29] MEDS: HYDROmorphone 2 MG/ML SYR 0.5 MG IVP (00:03)
[2025-03-29] MEDS: HYDROmorphone 2 MG TAB PO ×2 (00:12→04:58)
[2025-03-29 01:07] VITALS: BP 124/86; PULSE 91; RESP 20; TEMP 36.2; O2SAT 95
[2025-03-29] MEDS: Ketorolac 30 MG/ML VIAL IVP (01:16)
[2025-03-29] MEDS: PIPERACILLIN/TAZO 3.375 GM in Normal Saline 50 ML IVPB ×2 (01:56→06:08)
[2025-03-29] MEDS: ACETAMINOPHEN 1,000 MG/100 ML BAG 400 MG IVPB (02:33)
[2025-03-29 07:19] LABS: HCT 30.8 % (36.0-46.0); HGB 9.8 g/dL (11.2-15.7); MCH 25.5 pg (27.0-33.0); MCHC 31.8 % (32.0-36.0); MCV 80 fL (80-95); MPV 9.7 fL (8.0-11.0); Platelet Count 217 10^3/uL (130-400); RBC 3.85 10^6/uL (3.93-5.22); RDW 15.0 % (11.7-14.6); RDW-SD 44.1 fL; WBC 8.11 10^3/uL (4.4-10.8)
[2025-03-29 07:32] VITALS: BP 109/72; PULSE 74; RESP 17; TEMP 36.8; O2SAT 95
[2025-03-29] MEDS: Ketorolac 15 MG/ML VIAL IVP ×3 (07:58→19:57)
[2025-03-29] MEDS: Normal Saline Flush 10 ML SYR IVP ×3 (07:58→19:57)
[2025-03-29] MEDS: Simethicone 80 MG CHEW 40 MG PO ×4 (08:16→22:03)
--- NOTE | 2025-03-29 09:00 | CMPROGNOTE_ITS ---
Date of service: 03/29/25 Time of Service: 09:00 Care Management Progress Note Progress Note Text Progress Note Text: Melissa was admitted to [facility] on 03/27/25 and is s/p laproscopic appendectomy. She was awake and sitting in a chair when CM met with her, she is very polite and easy to engage in conversation and expresses gratitude for the care she has been receiving while at [facility]. Melissa reports that she didn't expect to be in so much pain after surgery and she really does appear uncomfortable. She met with the surgeon this morning and was informed that her appendix was in poor condition and was possibly beginning to perforate. She had a drain placed, and was advised that she will likely be admitted overnight for pain management and further monitoring. Melissa's ambulation is limited by pain at this time. Per pt, she has one step leading to her front door and is worried about managing stairs at home. She has a 2 level home and will be staying on the first floor post discharge. 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 CM will continue to follow. Discharge Potential Discharge Needs: PCP F/U Appt Anticipated Barriers to Discharge: None Identified Patient/Family Education Needs: Review discharge instructions, discuss Ask Me Three Transportation: Private vehicle Plan: Anticipate Melissa will be discharged home, once medically ready. It is recommended she follow up with her community providers, surgical team, and discharge plan of care. She will be transported home likely by private vehicle. Melissa may require a work note. CM will continue to follow. Social Determinants of Health Screening Social Determinants of health last assessed in clinic: 03/28/25 Will the Patient Participate in the Screening?: Unable to obtain Do you worry about having a steady place to live?: no Problems where you live: no known problems In the past 12 months, have you had to go without electric, gas, oil or water in your home?: no Has lack of transportation kept you from medical appointments or from doing things needed for daily living?: no Has anyone in your life made you feel unsafe or unsupported?: no How hard is it for you to pay for the very basics like food, housing, medical care, and heating? Would you say it is:: Somewhat hard Do you want help finding or keeping work or a job?: I do not need or want help If for any reason you need help with day-to-day activities such as bathing, preparing meals, shopping, managing finances, etc., do you get the help you need?: I don?t need any help How often do you feel lonely or isolated from those around you?: Never Do you speak a language other than Yoruba at home?: No Does the patient want assistance with any of the above?: No Health Related Social Needs Health related social needs: problems related to housing/economic circumstances (Z59.89) Health related social needs details: n/a
[2025-03-29] MEDS: traMADol 50 MG TAB PO ×3 (11:43→22:58)
--- NOTE | 2025-03-29 12:18 | W.PM.PROGNOT ---
Date of Service Date of service: 03/29/25 Time of Service: 07:36 Assessment and Plan Assessment and plan (1) Acute appendicitis: Status: Acute Assessment and plan: She was given toradol while conversing with this provider. Encouraged increased PO intake Ambulation and sitting in the chair as tolerated. Will proceed with Pain control as needed. PATRICIA drainage serosanginous Subjective Subjective Interval history since last seen: Arrive with Melissa sitting in the chair starting to eat breakfast. She describes having pain in her RLQ that comes and goes, but is sharp in nature. She is hungry and feeling ready to eat. Exam Const General: cooperative, healthy appearing and comfortable Orientation: alert and oriented x3 Resp Effort & Inspection: normal respiratory effort, no audible wheezes and no cough GI Inspection: normal to inspection Palpation: soft, guarding and tender in the RLQ Other: Patricia Janes in place with serosanginous drainage Objective Last Vital Signs Temp 36.8 C 03/29/25 07:32 Pulse 74 03/29/25 07:32 Resp 17 03/29/25 07:32 BP 109/72 03/29/25 07:32 Pulse Ox 95 03/29/25 07:32 Laboratory Results - last 24 hr 03/29/25 07:05 WBC 8.11 RBC 3.85 L Hgb 9.8 L Hct 30.8 L MCV 80 MCH 25.5 L MCHC 31.8 L RDW 15.0 H Plt Count 217 MPV 9.7 PAWSS Have you Been Recently Intoxicated or Drunk Within the Last 30 days?: No Have you Ever Experienced Previous Episodes of Alcohol Withdrawal?: No Have you ever Experienced Withdrawal Seizures?: No Have you ever Experienced Delirium Tremens(DT)s?: No Have you ever undergone Alcohol Rehabilitation Treatment (i.e, inpt ot outpatient treatment programs)?: No Have you ever Experienced Blackouts?: No Have you ever Combined Alcohol with other Downers within the last 90 days?: No Have you ever Combined Alcohol with any other Substance of Abuse during the last 90 days?: No Positive Blood Alcohol level on Presentation? [PCS.BAL]: No Evidence of Increased Autonomic Activity (i.e. HR>120, tremor, sweating, agitation, nausea)?: No Result: 0 Time Spent with Patient Time Spent with Patient: <25 minutes Time was spent: preparing to see the patient(eg.review tests), obtaining and/or reviewing separately otained hiistory and counseling the patient
--- NOTE | 2025-03-29 14:51 | W.PM.PROGNOT ---
Date of Service Date of service: 03/29/25 Time of Service: 14:51 Assessment and Plan Assessment and plan (1) Acute appendicitis: Status: Acute Assessment and plan: Melissa looks pretty good after fairly complicated appendectomy for severe appendicitis. White blood cell count is normal, and she has been afebrile. I will switch her over to oral antibiotics today, and slowly advance her diet. I will also make some adjustments to her pain regimen in an effort to transition her over to an enteral plan in order to help achieve discharge. Subjective Subjective Interval history since last seen: Melissa had quite a bit of abdominal pain overnight, but was able to enjoy a little bit of relief with ketorolac. She denies any nausea or vomiting. She is feeling better this morning, with a little bit of appetite. She has not passed any gas yet. Exam GI Other: Abdomen is soft and nondistended. She is a bit tender in the suprapubic area. Bandages are all clean. The surgical drain is a little bit purulent Objective Last Vital Signs Temp 98.2 F 03/29/25 07:32 Pulse 74 03/29/25 07:32 Resp 17 03/29/25 07:32 BP 109/72 03/29/25 07:32 Pulse Ox 95 03/29/25 07:32 Laboratory Results - last 24 hr 03/29/25 07:05 WBC 8.11 RBC 3.85 L Hgb 9.8 L Hct 30.8 L MCV 80 MCH 25.5 L MCHC 31.8 L RDW 15.0 H Plt Count 217 MPV 9.7 PAWSS Have you Been Recently Intoxicated or Drunk Within the Last 30 days?: No Have you Ever Experienced Previous Episodes of Alcohol Withdrawal?: No Have you ever Experienced Withdrawal Seizures?: No Have you ever Experienced Delirium Tremens(DT)s?: No Have you ever undergone Alcohol Rehabilitation Treatment (i.e, inpt ot outpatient treatment programs)?: No Have you ever Experienced Blackouts?: No Have you ever Combined Alcohol with other Downers within the last 90 days?: No Have you ever Combined Alcohol with any other Substance of Abuse during the last 90 days?: No Positive Blood Alcohol level on Presentation? [PCS.BAL]: No Evidence of Increased Autonomic Activity (i.e. HR>120, tremor, sweating, agitation, nausea)?: No Result: 0 Time Spent with Patient Time Spent with Patient: 25-34 minutes Time was spent: preparing to see the patient(eg.review tests), ordering medications,tests, procedures, indepentently interpreting results and counseling the patient
[2025-03-29] MEDS: Amoxicillin 875/Clav. 125 TAB PO ×2 (15:17→19:56)
[2025-03-29] MEDS: Ondansetron 4 MG/2 ML VIAL IVP (17:19)
[2025-03-29 19:46] VITALS: BP 122/82; PULSE 86; RESP 20; TEMP 37.1; O2SAT 98
[2025-03-30] MEDS: Ketorolac 15 MG/ML VIAL IVP ×3 (02:20→13:39)
[2025-03-30] MEDS: Normal Saline Flush 10 ML SYR IVP ×2 (02:20→08:00)
[2025-03-30] MEDS: traMADol 50 MG TAB PO ×2 (05:58→12:19)
[2025-03-30] MEDS: Amoxicillin 875/Clav. 125 TAB PO (07:59)
[2025-03-30] MEDS: Simethicone 80 MG CHEW 40 MG PO ×2 (07:59→12:19)
--- NOTE | 2025-03-30 08:03 | PGE_ITS ---
Date of Service Date of service: 03/30/25 Time of Service: 08:03 Assessment and Plan Assessment and plan (1) Acute appendicitis: Status: Acute Assessment and plan: Melissa is feeling much better this morning. She has been ambulating frequently, tolerating a regular diet and also had a BM this morning. Her pain seems to be much more controlled this morning. She is confident and independent with drain management and feels that she can handle this upon d/c. Anticipate d/c later this morning. Agree w Ros ERWIN note. Pt feels better today than before. pain is well controlled and she can tell she isnt feeling sick like she had been all month. We discussed return to work and activity restriction etc. She is tolerating reg diet. appetite is marginal. Awake, NAD eomi, MMM normal resp effort incisions w dermabond intact, clean and dry. Drain site lower midline clean and dry. Drain is cloudy serosanguinous fluid. A/P perforated/gangrenous appendicitis POD 2 s/p lap appy. Afebrile, progressing well. WBC normal yesterday. Pain controlled, tolerating diet. stable for dc home. She will need to continue the drain at home and follow up in office for drain check w a drain log on friday. activity restrictions reviewed - I recommend she wait til 04/06 to return to work. When she returns she may not lift/push/pull >20lb until 04/25. discharge home on augmentin. Surgery clinic follow up on friday for drain check. Subjective Subjective Interval history since last seen: Arrive with the patient resting comfortably. She is feeling much better today and eager to return home. She states she had a BM this morning. Exam Const General: cooperative, healthy appearing and comfortable Orientation: alert and oriented x3 Resp Effort & Inspection: normal respiratory effort, no audible wheezes and no cough GI Inspection: normal to inspection Palpation: soft, no guarding and tender Other: PATRICIA with serosanginous drainage Objective Last Vital Signs Temp 37.1 C 03/29/25 19:46 Pulse 86 03/29/25 19:46 Resp 20 03/29/25 19:46 BP 122/82 03/29/25 19:46 Pulse Ox 98 03/29/25 19:46 PAWSS Have you Been Recently Intoxicated or Drunk Within the Last 30 days?: No Have you Ever Experienced Previous Episodes of Alcohol Withdrawal?: No Have you ever Experienced Withdrawal Seizures?: No Have you ever Experienced Delirium Tremens(DT)s?: No Have you ever undergone Alcohol Rehabilitation Treatment (i.e, inpt ot outpatient treatment programs)?: No Have you ever Experienced Blackouts?: No Have you ever Combined Alcohol with other Downers within the last 90 days?: No Have you ever Combined Alcohol with any other Substance of Abuse during the last 90 days?: No Positive Blood Alcohol level on Presentation? [PCS.BAL]: No Evidence of Increased Autonomic Activity (i.e. HR>120, tremor, sweating, agitation, nausea)?: No Result: 0 Time Spent with Patient Time Spent with Patient: 25-34 minutes Time was spent: preparing to see the patient(eg.review tests), referring, communicating with other health patient care director and counseling the patient
[2025-03-30 08:06] VITALS: BP 116/84; PULSE 96; RESP 16; TEMP 35.9; O2SAT 96
--- NOTE | 2025-03-30 12:53 | PDOC.DSDIS_ITS ---
Date of service: 03/30/25 Discharge Plan Disposition Patient Disposition: Home Condition: Stable Discharge Details Reason For Visit: Acute Appendicitis Admit Date/Time: 03/27/25 19:32 Admit Provider: Kendal Khanna Attending Provider: Kendal Khanna Primary Care Provider: [facility] Hospital Course: 40yo F with acute appendicitis. Taken to surgery on 03/30/25 and found to have gangrenous purulent severe appendicitis. Surgery completed without complication and a drain was placed. she was continued on antibiotics and diet advanced slowly. Pain control was challenging initially but improved after addition of tramadol. WBC returned to normal and she tolerated reg diet. On POD 2 she was cleared for discharge home after return instructions and return precautions were reviewed. Home Meds and New Rx's Prescriptions: New tramadol 50 mg Tablet 50 mg PO Q6H PRN (Reason: Abdominal Pain) Qty: 12 0RF amoxicillin-pot clavulanate 875-125 mg Tablet 1 tab PO BID 7 Days Qty: 14 0RF Continued melatonin 10 mg capsule 10 mg PO HS PRN ondansetron 4 mg tablet,disintegrating 4 mg PO TID promethazine 25 mg tablet 25 mg PO Q6H PRNQty: 14 0RF Discharge Instructions Additional Instructions: Shower at home. Wash gently over incisions and drain site with soapy hands, rinse, pat dry. Don't peel glue or submerge incisions or drain under water. Ok to walk, climb stairs, and resume normal activities of daily living. Do not lift/push/pull more than 20lb for 4 weeks. Diet as tolerated. Add things like multivitamin, protein drinks, moldovan yogurt, beef jerky snacks etc to make sure to get protein and nutrients in to your diet. Protein energy helps combat the fatigue you will experience during your recovery. Strip your drain at least 3 times a day, measure and record the output on paper. Bring the log of drain output to your office appointments. Call or return for fever or incisional problems. FOLLOW UP ON Friday04/01/25 AT 11:15AM. PLEASE ARRIVE 5 MINUTES EARLY. Activity:: as instructed Equipment/Supplies:: No Equipment Needed Diet:: As Tolerated Discharge Orders Discharge Orders: Discharge Order (Routine); Ordered 03/30/25 Ordered By: Marilyn Pressley DS: Diagnosis Discharge Diagnosis (1) Acute appendicitis: Status: Acute (2) Acute gangrenous appendicitis: Status: Acute
--- NOTE | 2025-03-30 15:52 | PDOC.CMDIS ---
Date of service: 03/30/25 Time of Service: 16:03 LACE Index Scoring Tool Questions: Length of Stay (in days): 3 Was the patient admitted via the E.D.?: Yes E.D. Visits: 2 Answers: Total Score: 8 Risk of Readmission: Low Risk Care Management Discharge Plan Reason for Hospitalization: Appendicitis Discharge Plan: Melissa is discharged home via private vehicle with family. She will follow up with community providers and continue per her discharge plan of care. No new services are indicated on discharge. Patient/Family Education Needs: Review discharge instructions and plan to follow up after discharge. Discuss ask me three. SDOH Health Related Social Needs: Health related social needs house/econ circumstance Health related social needs details n/a Health related social needs details: n/a
== END 2025-03-30 16:06 | disposition home or self-care (01) ==
LOC: ER 19:33 → MS 20:32
PROVIDERS: Surgery; Admitting Provider Student in an Organized Health Care Education/Training Program; Emergency Provider Nurse Practitioner Family; PCP Nurse Practitioner Family; Responsible Provider Student in an Organized Health Care Education/Training Program; Visit Provider Student in an Organized Health Care Education/Training Program
PROC: 0DTJ4ZZ Resection of Appendix, Percutaneous Endoscopic Approach (ICD-10-PCS; CPT 44970; principal; 2025-03-28 12:00)
DX: K35.32 Acute appendicitis with perforation, localized peritonitis, and gangrene, without abscess (principal); E87.6 Hypokalemia; R11.2 Nausea with vomiting, unspecified; R74.8 Abnormal levels of other serum enzymes
CPT/HCPCS: 44970; 00123; 36415; 80048; 80053; 81025; 83690; 85027; 87637; 93005; 96361; 96365; 96375; 99285; J1650; 74177; 81003; 81015; 84439; 84443; 85025; 88304; 93010; G0378; J0131; J0690; J1100; J1171; J1885; J2003; J2371; J2405; J2543; J2704; J3010; J3490